=== PATIENT | female | born 1960 | race Caucasian/White ===

== ENCOUNTER 2017-03-29 12:20 | Inpatient (IN) | payer BC, MEDICARE ==
[2017-03-29] MEDS ORDERED: Ondansetron INJ* 2 MG/ML VIAL IV ONE (13:20)
[2017-03-29] MEDS ORDERED: NS 0.9% 1000 ML* 1,000 ML IV ONE (13:20)
[2017-03-29 13:32] LABS: Hematocrit 27 % (35-47); Hemoglobin 9.1 g/dl (12.0-16.0); Mean Corpuscular HGB Conc 33 g/dl (31-36); Mean Corpuscular Hemoglobin 30 pg (27-31); Mean Corpuscular Volume 89 fL (80-97); Mean Platelet Volume 8 um3 (7.4-10.4); Red Blood Count 3.08 10^6/ul (4.0-5.4); Red Cell Distribution Width 17 % (10.5-15); White Blood Count 9.7 10^3/ul (3.5-10.8)
[2017-03-29 13:34] LABS: Add Diff/Slide Review? Manual Diff Added; Comments Flag Yes
[2017-03-29 13:54] LABS: Eosinophils % 1 % (0-6); Neutrophil % 89 % (38-83)
[2017-03-29 13:55] LABS: Add Path Review? YES; Albumin 2.8 g/dL (3.2-5.2); BUN/Creatinine Ratio 13.4 (8-20); C Reactive Protein 84.26 mg/L (< 5.00); Calcium 9.4 mg/dL (8.6-10.3); EGFR African American 43.7 (>60); Globulin 4.1 g/dL (2-4); Macrocytosis 1+; Magnesium 1.3 mg/dL (1.9-2.7); Total Bilirubin 0.4 mg/dL (0.2-1.0); Total Protein 6.9 g/dL (6.4-8.9); Troponin I 0.03 ng/mL (<0.04)
--- NOTE | 2017-03-29 14:06 | RAD ---
Indication: Shortness of breath, tachycardia. Question pneumonia and CHF. Comparison: No relevant prior exams available on the [facility] for comparison. Technique: Upright AP 1345 hours Report: Bilateral nipple shadows noted. Clear lungs and pleural spaces. Negative for pneumothorax. Rarefaction of interstitial markings favoring emphysema. Negative for cardiomegaly. RIGHT atrial and RIGHT ventricular level pacemaker leads. Unremarkable central pulmonary vasculature. Tip of RIGHT upper chimney PICC at level of superior vena cava directed central. Negative for free air beneath the diaphragm. Gallbladder fossa level surgical clips. IMPRESSION: 1. No evidence for pneumonia or pulmonary edema. 2. Probable emphysema.
[2017-03-29 14:55] LABS: Urine Bacteria Absent (Absent); Urine Bilirubin Negative (Negative); Urine Glucose Negative (Negative); Urine Nitrite Negative (Negative)
[2017-03-29] MEDS ORDERED: Magnesium Sulfate 2 GM IV* 2 GM/50 ML BAG IVPB ONE (15:04)
[2017-03-29] MEDS ORDERED: Metoprolol Tartrate IV* 1 MG/ML 5 ML VIAL IV ONE (15:04)
[2017-03-29] MEDS ORDERED: NS 0.9% 1000 ML* 2,000 ML IV ONE (15:17)
[2017-03-29] MEDS ORDERED: Meclizine TAB* 12.5 MG PO PRN (17:45)
[2017-03-29] MEDS ORDERED: Dextrose 50% Syringe 50 ML* 25 GM/50 ML SYRINGE IV PUSH PRN (17:59)
--- NOTE | 2017-03-29 18:45 | ED ---
Michelle Dykes Seung-Jae, scribed for Per Matthew MD on 03/29/17 at 1544 . Complex/Multi-Sys Presentation - HPI Summary HPI Summary: Pt is a 57 y/o F presenting to the ED with c/o irregular rhythm and heart palpitations. Onset was since Tuesday 03/27. She describes a lowering of BP recently. Associated symptoms included lightheadedness, N/V, SOB, dizziness when standing, tachycardia, dehydration, fever and diaphoresis. Pt denies CP, chills. Pt has PMHx of A fib, CHF, and irregular heartbeat. She has a pacemaker placed, has had a colon surgery with Dr. Bello Ross on 03/01/17. She currently has a BLANCHE drain in place. - History Of Current Complaint Chief Complaint: EDDysrhythmPalp Time Seen by Provider: 03/29/17 12:35 Hx Obtained From: Patient Onset/Duration: Sudden Onset Associated Signs And Symptoms: Positive: Dizziness, SOB, Nausea, Vomiting, Fever , Diaphoresis, Other - Decrease in BP, tachycardia, lightheadedness. Negative: Chest Pain - Allergies/Home Medications Allergies/Adverse Reactions: Allergies Allergy/AdvReac Type Severity Reaction Status Date / Time Azithromycin [From Zithromax] Allergy Hives Verified 03/29/17 12:39 Peanut Oil Allergy Hives/Diff. Verified 03/29/17 12:39 Breathing/I tching Home Medications: Home Medications Aspirin EC Low Dose* [Ecotrin EC Low Dose 81 MG*] 81 mg PO QAM 03/29/17 [ History Confirmed 03/29/17] Atorvastatin* [Lipitor*] 40 mg PO BEDTIME 03/29/17 [History Confirmed 03/29/17] Btdaebb-Tjvxqvi-Ocojme Salicyl [Bengay Ultra Strength 4-10-30 %] 1 cre TOPICAL DAILY 03/29/17 [History Confirmed 03/29/17] Cholecalciferol TAB* [Vitamin D TAB*] 1,000 unit PO DAILY 03/29/17 [History Confirmed 03/29/17] Digoxin TAB* [Lanoxin TAB*] 0.25 mg PO QAM 03/29/17 [History Confirmed 03/29/17] Docusate CAP* [Colace Cap*] 100 mg PO QAM PRN 03/29/17 [History Confirmed ] Enoxaparin(*) [Lovenox(*)] 40 mg SUBCUT DAILY 03/29/17 [History Confirmed ] Fenofibrate(NF) [Tricor(NF)] 160 mg PO QAM 03/29/17 [History Confirmed 03/29/17] Ferrous Sulfate TAB* 325 mg PO BID 03/29/17 [History Confirmed 03/29/17] Furosemide TAB* [Lasix TAB*] 20 mg PO BID 03/29/17 [History Confirmed 03/29/17] Gabapentin CAP(*) [Neurontin 300 CAP(*)] 300 mg PO TID 03/29/17 [History Confirmed 03/29/17] Lisinopril TAB* [Prinivil TAB*] 20 mg PO QAM 03/29/17 [History Confirmed ] LoraTADine TAB(NF) [Claritin 10 MG TAB(NF)] 10 mg PO DAILY 03/29/17 [History Confirmed 03/29/17] Magnesium Oxide [Magnesium] 2,000 mg PO DAILY 03/29/17 [History Confirmed ] Meclizine TAB* [Antivert 12.5 TAB*] 25 mg PO TID PRN 03/29/17 [History Confirmed 03/29/17] Metoprolol Tartrate TAB* [Lopressor TAB*] 50 mg PO QID 03/29/17 [History Confirmed 03/29/17] Nystatin SUSPENSION* [Nystatin*] 5 ml PO QID 03/29/17 [History Confirmed ] [place]-3 Fatty Acids (Nf) [Fish Oil (NF)] 1,000 mg PO DAILY 03/29/17 [History Confirmed 03/29/17] Ondansetron ODT TAB* [Zofran 4 MG Odt TAB*] 4 mg PO Q4HR PRN 03/29/17 [History Confirmed 03/29/17] Pantoprazole TAB (NF) [Protonix TAB (NF)] 40 mg PO DAILY 03/29/17 [History Confirmed 03/29/17] Potassium Chlor TAB* [Klor Con ER TAB*] 20 meq PO DAILY 03/29/17 [History Confirmed 03/29/17] Spironolactone TAB* [Aldactone TAB*] 25 mg PO DAILY 03/29/17 [History Confirmed 03/29/17] glipiZIDE TAB* [Glucotrol TAB*] 10 mg PO BID 03/29/17 [History Confirmed ] metFORMIN* [Glucophage 1000 MG TAB *] 1,000 mg PO BID 03/29/17 [History Confirmed 03/29/17] oxyCODONE/Acetamin 5/325 MG* [Percocet 5/325 TAB*] 1 tab PO Q6H PRN 03/29/17 [ History Confirmed 03/29/17] PMH/Surg Hx/FS Hx/Imm Hx Cardiovascular History: Reports: Hx Atrial Fibrillation, Hx Congestive Heart Failure, Other Cardiovascular Problems/Disorders - Irregular heartbeat, has pacemaker GI History: Reports: Hx Obstructive Bowel - multiple - Surgical History Surgery Procedure, Year, and Place: Colon Surgery with Dr. Bello Ross Infectious Disease History: No Infectious Disease History: Denies: Traveled Outside the [place] in Last 30 Days - Family History Known Family History: Positive: Hypertension - in mother - Social History Hx Tobacco Use: Yes Smoking Status (MU): Former Smoker - last smoking 6 years ago. Review of Systems Positive: Fever, Skin Diaphoresis, Other - dehydration Positive: Palpitations, Other - irregular rhythm, decrease in BP, tachycardia Positive: Shortness Of Breath Positive: Vomiting, Nausea Neurological: Other - positive lightheadedness, dizziness All Other Systems Reviewed And Are Negative: Yes Physical Exam - Summary Physical Exam Summary: Pt is dehydrated. NAD. The skin is warm and dry and skin color reflects adequate perfusion. HEENT: The head is normocephalic and atraumatic. The pupils are equal and reactive. The conjunctivae are clear and without drainage. Nares are patent and without drainage. Mouth reveals moist mucous membranes and the throat is without erythema and exudate. Neck is supple with full range of motion and non-tender. There are no carotid bruits. There is no neck vein distension. Respiratory: Chest is non-tender. Lungs are clear to auscultation and breath sounds are symmetrical and equal. Cardiovascular: Hear is regular rate and rhythm. There is no murmur or rub auscultated. There is no peripheral edema and pulses are symmetrical and equal. Pulses are lower. Abdomen: The abdomen is soft and non-tender. There are normal bowel sounds heard in all four quadrants and there is no organomegaly palpated. Musculoskeletal: There is no back pain noted. Extremities are non-tender with full range of motion. There is good capillary refill. There is no peripheral edema or calf tenderness elicited. Neurological: Patient is alert and oriented to person, place and time. The patient has symmetrical motor strength in all four extremities. Cranial nerves are grossly intact. Deep tendon reflexes are symmetrical and equal in all four extremities. Psychiatric: The patient has an appropriate affect and does not exhibit any anxiety or depression. Vital Signs On Initial Exam: Initial Vitals Temp Pulse Resp BP Pulse Ox 97.2 F 140 16 96/71 97 03/29/17 12:23 03/29/17 12:23 03/29/17 12:23 03/29/17 12:23 03/29/17 12:23 Diagnostics - Vital Signs Vital Signs Temp Pulse Resp BP Pulse Ox 03/29/17 12:40 142 15 96 03/29/17 12:39 141 12 96 03/29/17 12:26 97.2 F 140 16 96/71 97 03/29/17 12:23 97.2 F 140 16 96/71 97 - Laboratory Lab Results: Lab Results 03/29/17 03/29/17 03/29/17 Range/Units 13:22 13:22 13:22 WBC 9.7 (3.5-10.8) 10^3/ul RBC 3.08 L (4.0-5.4) 10^6/ul Hgb 9.1 L (12.0-16.0) g/dl Hct 27 L (35-47) % MCV 89 (80-97) fL MCH 30 (27-31) pg MCHC 33 (31-36) g/dl RDW 17 H (10.5-15) % Plt Count 421 (150-450) 10^3/ul MPV 8 (7.4-10.4) um3 Absolute Neuts (auto) 8.7 H (1.5-7.7) 10^3/ul Absolute Lymphs (auto) 0.5 L (1.0-4.8) 10^3/ul Absolute Monos (auto) 0.5 (0-0.8) 10^3/ul Absolute Eos (auto) 0 (0-0.6) 10^3/ul Absolute Basos (auto) 0 (0-0.2) 10^3/ul Absolute Nucleated RBC 0 10^3/ul Neutrophils % 89 H (38-83) % Lymphocytes % 7 L (25-47) % Monocytes % 3 (0-13) % Eosinophils % 1 (0-6) % Normal RBC Morphology Not Reportable Macrocytosis 1+ Hem Pathologist Commnt Sodium 123 L (133-145) mmol/L Potassium 5.0 (3.5-5.0) mmol/L Chloride 92 L (101-111) mmol/L Carbon Dioxide 24 (22-32) mmol/L Anion Gap 7 (2-11) mmol/L BUN 21 (6-24) mg/dL Creatinine 1.57 H (0.51-0.95) mg/dL Est GFR ( Amer) 43.7 (>60) Est GFR (Non-Af Amer) 34.0 (>60) BUN/Creatinine Ratio 13.4 (8-20) Glucose 199 H (70-100) mg/dL Lactic Acid 2.4 H* (0.5-2.0) mmol/L Calcium 9.4 (8.6-10.3) mg/dL Magnesium 1.3 L (1.9-2.7) mg/dL Total Bilirubin 0.40 (0.2-1.0) mg/dL AST 20 (13-39) U/L ALT 10 (7-52) U/L Alkaline Phosphatase 127 H (34-104) U/L Total Creatine Kinase 10 (10-223) U/L Troponin I 0.03 (<0.04) ng/mL C-Reactive Protein 84.26 H (< 5.00) mg/L Total Protein 6.9 (6.4-8.9) g/dL Albumin 2.8 L (3.2-5.2) g/dL Globulin 4.1 H (2-4) g/dL Albumin/Globulin Ratio 0.7 L (1-3) Lipase 22 (11.0-82.0) U/L Urine Color Urine Appearance Urine pH (5-9) Ur Specific [place] (1.010-1.030) Urine Protein (Negative) Urine Ketones (Negative) Urine Blood (Negative) Urine Nitrate (Negative) Urine Bilirubin (Negative) Urine Urobilinogen (Negative) Ur Leukocyte Esterase (Negative) Urine WBC (Auto) (Absent) Urine RBC (Auto) (Absent) Ur Squamous Epith Cells (Absent) Ur Transition Epith Cell (Absent) Urine Bacteria (Absent) Urine Glucose (Negative) 03/29/17 Range/Units 14:18 WBC (3.5-10.8) 10^3/ul RBC (4.0-5.4) 10^6/ul Hgb (12.0-16.0) g/dl Hct (35-47) % MCV (80-97) fL MCH (27-31) pg MCHC (31-36) g/dl RDW (10.5-15) % Plt Count (150-450) 10^3/ul MPV (7.4-10.4) um3 Absolute Neuts (auto) (1.5-7.7) 10^3/ul Absolute Lymphs (auto) (1.0-4.8) 10^3/ul Absolute Monos (auto) (0-0.8) 10^3/ul Absolute Eos (auto) (0-0.6) 10^3/ul Absolute Basos (auto) (0-0.2) 10^3/ul Absolute Nucleated RBC 10^3/ul Neutrophils % (38-83) % Lymphocytes % (25-47) % Monocytes % (0-13) % Eosinophils % (0-6) % Normal RBC Morphology Macrocytosis Hem Pathologist Commnt Sodium (133-145) mmol/L Potassium (3.5-5.0) mmol/L Chloride (101-111) mmol/L Carbon Dioxide (22-32) mmol/L Anion Gap (2-11) mmol/L BUN (6-24) mg/dL Creatinine (0.51-0.95) mg/dL Est GFR ( Amer) (>60) Est GFR (Non-Af Amer) (>60) BUN/Creatinine Ratio (8-20) Glucose (70-100) mg/dL Lactic Acid (0.5-2.0) mmol/L Calcium (8.6-10.3) mg/dL Magnesium (1.9-2.7) mg/dL Total Bilirubin (0.2-1.0) mg/dL AST (13-39) U/L ALT (7-52) U/L Alkaline Phosphatase (34-104) U/L Total Creatine Kinase (10-223) U/L Troponin I (<0.04) ng/mL C-Reactive Protein (< 5.00) mg/L Total Protein (6.4-8.9) g/dL Albumin (3.2-5.2) g/dL Globulin (2-4) g/dL Albumin/Globulin Ratio (1-3) Lipase (11.0-82.0) U/L Urine Color Yellow Urine Appearance Cloudy Urine pH 5.0 (5-9) Ur Specific [place] 1.030 (1.010-1.030) Urine Protein Negative (Negative) Urine Ketones Trace H (Negative) Urine Blood Negative (Negative) Urine Nitrate Negative (Negative) Urine Bilirubin Negative (Negative) Urine Urobilinogen Negative (Negative) Ur Leukocyte Esterase 2+ H (Negative) Urine WBC (Auto) 2+(11-20/hpf) H (Absent) Urine RBC (Auto) Trace(0-2/hpf) (Absent) Ur Squamous Epith Cells Present H (Absent) Ur Transition Epith Cell Present H (Absent) Urine Bacteria Absent (Absent) Urine Glucose Negative (Negative) Result Diagrams: 03/29/17 13:22 03/29/17 13:22 Lab Statement: Any lab studies that have been ordered have been reviewed, and results considered in the medical decision making process. - Radiology Chest XR Xray Interpretation: Positive (See Comments) - Impression: no evidence for PNA or pulmonary edema. Probable emphysema. Radiology Interpretation Completed By: Radiologist - EKG 12:30 Cardiac Rate: Tachycardia - 139 bpm EKG Rhythm: Sinus Tachycardia EKG Interpretation: ST depression at Lead1 I V2 - V6 Re-Evaluation - Re-Evaluation First Eval Re-Evaluation Time: 17:04 Change: Unchanged Comment: Labwork reviewed. Complex Multi-Symp Course/Dx - Diagnoses Differential Diagnoses/HQI/PQRI: Metabolic Abnormality, Sepsis, Urinary Tract Infection, Other - recent colon resection, infectious diarrhea, pneumonia, atrial fibrillation, Provider Diagnoses: Dehydration, Hypomagnesemia - Physician Notifications Discussed Care Of Patient With: Jluis Reis Time Discussed With Above Provider: 17:00 - Critical Care Time Critical Care Time: 30-74 min - 30 minutes Discharge - Discharge Plan Condition: Stable Disposition: ADMITTED TO [facility] Referrals: Non Staff,Doctor [Primary Care Provider] - The documentation as recorded by the scribe, Martinez,Florin-Eduardo accurately reflects the service I personally performed and the decisions made by me, Per Matthew MD.
[2017-03-29] MEDS: NS 0.9% 1000 ML* 1,000 ML IV SCH (19:45)
[2017-03-29] MEDS: Metoprolol Tartrate TAB* 50 mg PO SCH (20:16)
[2017-03-29] MEDS: Atorvastatin* 40 MG TAB PO SCH (20:16)
[2017-03-29] MEDS: oxyCODONE/Acetamin 5/325 MG* TAB PO PRN (20:16)
[2017-03-29] MEDS: Nystatin SUSPENSION* 100000 UNITS/ML 5 ML UDC PO SCH (20:17)
[2017-03-29] MEDS: Insulin LISPRO* 1 UNITS UNIT SUBCUT SCH (20:40)
[2017-03-30] MEDS: oxyCODONE/Acetamin 5/325 MG* TAB PO PRN ×3 (02:25→17:10)
[2017-03-30] MEDS: NS 0.9% 1000 ML* 1,000 ML IV SCH ×2 (04:05→13:05)
[2017-03-30 06:24] LABS: Hematocrit 23 % (35-47); Hemoglobin 7.4 g/dl (12.0-16.0); Mean Corpuscular HGB Conc 32 g/dl (31-36); Mean Corpuscular Hemoglobin 29 pg (27-31); Mean Corpuscular Volume 90 fL (80-97); Mean Platelet Volume 7 um3 (7.4-10.4); Red Blood Count 2.56 10^6/ul (4.0-5.4); Red Cell Distribution Width 17 % (10.5-15); White Blood Count 5.7 10^3/ul (3.5-10.8)
[2017-03-30 06:27] LABS: Add Diff/Slide Review? Manual Diff Added; Comments Flag Yes
[2017-03-30 06:42] LABS: BUN/Creatinine Ratio 13.5 (8-20); Calcium 8.1 mg/dL (8.6-10.3); EGFR African American 70.2 (>60); EGFR Non-African American 54.6 (>60); Magnesium 1.7 mg/dL (1.9-2.7); Potassium 4.8 mmol/L (3.5-5.0)
[2017-03-30 07:06] LABS: Hypochromasia 2+; Neutrophil % 88 % (38-83)
[2017-03-30 07:07] LABS: Add Path Review? YES
[2017-03-30] MEDS: Insulin LISPRO* 1 UNITS UNIT SUBCUT SCH ×4 (07:41→20:57)
[2017-03-30] MEDS: Spironolactone TAB* 25 MG PO SCH (08:29)
[2017-03-30] MEDS: Omeprazole CAP* 20 MG PO SCH (08:29)
[2017-03-30] MEDS: Magnesium Oxide TAB* 400 MG PO SCH (08:29)
[2017-03-30] MEDS: Potassium Chlor TAB* 20 MEQ TAB.ER PO SCH (08:30)
[2017-03-30] MEDS: Cetirizine* 10 MG TAB PO SCH (08:30)
[2017-03-30] MEDS: Cholecalciferol TAB* 1000 UNITS PO SCH (08:30)
[2017-03-30] MEDS: Digoxin TAB* 0.25 MG PO SCH (08:30)
[2017-03-30] MEDS: Lisinopril TAB* 10 MG PO SCH (08:30)
[2017-03-30] MEDS: Metoprolol Tartrate TAB* 50 mg PO SCH ×4 (08:31→21:03)
[2017-03-30] MEDS: Nystatin SUSPENSION* 100000 UNITS/ML 5 ML UDC PO SCH ×4 (08:31→21:02)
[2017-03-30] MEDS: Aspirin EC Low Dose* 81 MG TAB.EC PO SCH (08:31)
[2017-03-30] MEDS: Enoxaparin(*) 40 MG/0.4 ML SYR SUBCUT SCH (08:31)
[2017-03-30] MEDS: Ondansetron INJ* 2 MG/ML VIAL IV PRN ×2 (08:47→17:13)
[2017-03-30] MEDS: METHYL SALICYLATE TOPICAL SCH (10:15)
[2017-03-30] MEDS: CAMPHOR TOPICAL SCH (10:15)
[2017-03-30] MEDS: CMC:Fenofibrate(NF) 160 MG TAB PO SCH (10:15)
[2017-03-30] MEDS: MENTHOL TOPICAL SCH (10:15)
[2017-03-30] MEDS: [UNRECOGNIZED DRUG - OTHER] TOPICAL SCH (10:15)
[2017-03-30] MEDS ORDERED: Ondansetron INJ* 2 MG/ML VIAL IV ONE (11:59)
--- NOTE | 2017-03-30 18:29 | PN ---
Subjective Date of Service: 03/30/17 Interval History: Interviewed and examined patient at bedside; Discussed case with Dr. Reis; Reviewed previous notes and radiology results; Patient with diarrhea, dehydration, vomiting. ARF at admission; IVF ongoing. patient states she is tired with poor appetite. no pain. discussed labs improved from yesterday x worse anemia (dilutional + true anemia ) => 2 units prbc ordered (pt agreed). discussed will get records from tissue packer and request surgical consult. Family History: Unchanged from Admission Social History: Unchanged from Admission Past Medical History: Unchanged from Admission Objective Active Medications: . Acetaminophen (Tylenol Tab*) 650 mg PO Q4H PRN PRN Reason: FEVER/PAIN Aspirin (Aspirin Ec Low Dose*) 81 mg PO QAM [facility] Last Admin: 03/30/17 08:31 Dose: 81 mg Atorvastatin Calcium (Lipitor*) 40 mg PO BEDTIME [facility] Last Admin: 03/29/17 20:16 Dose: 40 mg Cetirizine HCl (Zyrtec*) 10 mg PO DAILY [facility] Last Admin: 03/30/17 08:30 Dose: 10 mg Cholecalciferol (Vitamin D Tab*) 1,000 units PO DAILY [facility] Last Admin: 03/30/17 08:30 Dose: 1,000 units Dextrose (D50w Syringe 50 Ml*) 12.5 gm IV PUSH .FOR FS < 60 - SS PRN PRN Reason: FS < 60 Digoxin (Lanoxin Tab*) 0.25 mg PO QAM [facility] Last Admin: 03/30/17 08:30 Dose: 0.25 mg Enoxaparin Sodium (Lovenox(*)) 40 mg SUBCUT DAILY [facility] Last Admin: 03/30/17 08:31 Dose: 40 mg Fenofibrate (Tricor(Nf)) 160 mg PO QAM [facility] PRN Reason: Protocol Last Admin: 03/30/17 10:15 Dose: Not Given Heparin Sodium (Porcine) (Heparin Flush Picc/Ml/Cvc(*)) 1 ml FLUSH 0600,1800 [facility] PRN Reason: Protocol Last Admin: 03/30/17 18:10 Dose: 2 ml Sodium Chloride (Ns 0.9% 1000 Ml*) 1,000 mls @ 125 mls/hr IV PER RATE [facility] Last Admin: 03/30/17 13:05 Dose: 125 mls/hr Penicillin G Potassium 5,000, (000 units/ Sodium Chloride) 100 mls @ 200 mls/ hr IVPB Q6H [facility] Last Admin: 03/30/17 13:05 Dose: 200 mls/hr Insulin Human Lispro (Humalog*) 0 units SUBCUT ACHS [facility] PRN Reason: Protocol Last Admin: 03/30/17 18:04 Dose: 1 units Lisinopril (Prinivil Tab*) 20 mg PO QAM [facility] Last Admin: 03/30/17 08:30 Dose: 20 mg Magnesium Oxide (Magox 400 Tab*) 2,000 mg PO DAILY [facility] Last Admin: 03/30/17 08:29 Dose: 2,000 mg Meclizine HCl (Antivert Tab*) 25 mg PO TID PRN PRN Reason: VERTIGO Metoprolol Tartrate (Lopressor Tab*) 50 mg PO QID [facility] Last Admin: 03/30/17 17:10 Dose: 50 mg Non-Formulary Medication (Unjbllo-Rlmvcji-Zhkcfr Salicyl [Bengay Ultra Strength 4-10-30 %]) 1 cre TOPICAL DAILY [facility] Last Admin: 03/30/17 10:15 Dose: Not Given Nystatin (Nystatin Suspension*) 500,000 units PO QID [facility] Last Admin: 03/30/17 17:10 Dose: 500,000 units Omeprazole (Prilosec Cap*) 20 mg PO DAILY [facility] Last Admin: 03/30/17 08:29 Dose: 20 mg Ondansetron HCl (Zofran Odt Tab*) 4 mg PO Q4HR PRN PRN Reason: NAUSEA Ondansetron HCl (Zofran Inj*) 4 mg IV Q4H PRN PRN Reason: NAUSEA Last Admin: 03/30/17 17:13 Dose: 4 mg Oxycodone/Acetaminophen (Percocet 5/325 Tab*) 1 tab PO Q6H PRN PRN Reason: PAIN Last Admin: 03/30/17 17:10 Dose: 1 tab Potassium Chloride (Klor Con Er Tab*) 20 meq PO DAILY [facility] Last Admin: 03/30/17 08:30 Dose: 20 meq Spironolactone (Aldactone Tab*) 25 mg PO DAILY [facility] Last Admin: 03/30/17 08:29 Dose: 25 mg . Vital Signs 03/29/17 03/29/17 03/29/17 18:30 19:22 20:16 Temperature 97.9 F Pulse Rate 126 96 Respiratory 17 16 16 Rate Blood Pressure 132/73 115/70 (mmHg) O2 Sat by Pulse 96 99 Oximetry 03/29/17 03/29/17 03/29/17 20:23 22:16 23:42 Temperature 97.8 F Pulse Rate 102 Respiratory 16 16 16 Rate Blood Pressure 113/51 (mmHg) O2 Sat by Pulse 96 Oximetry Oxygen Devices in Use Now: Nasal Cannula Appearance: ill appearing, pale Eyes: No Scleral Icterus Ears/Nose/Mouth/Throat: Clear Oropharnyx Neck: Trachea Midline Respiratory: Symmetrical Chest Expansion and Respiratory Effort Cardiovascular: - - large anterior abdominal wound- dressed. +2 BLACNHE drains Abdominal: NL Sounds; No Tenderness; No Distention Lymphatic: No Cervical Adenopathy Extremities: No Edema Skin: No Rash or Ulcers Neurological: Alert and Oriented x 3 Lines/Tubes/Other Access: Clean, Dry and Intact Peripheral IV, Clean, Dry and Intact Central Line Nutrition: Taking PO's - poor appetite; limited intake. Result Diagrams: 03/30/17 06:10 03/30/17 06:10 Microbiology and Other Data: Microbiology 03/29/17 18:10 Nasal Screen MRSA (PCR)(RADHA) - Final Nasal Mrsa Negative Assess/Plan/Problems-Billing . Assessment: 57 yo female with recent colon resection for colon cancer with two BLANCHE drains in situ and anterior abdominal wall wound. + severe anemia + dehydration and hyponatremia and hypovolemia with acute renal failure - Patient Problems (1) Nausea and vomiting Current Visit: Yes Status: Acute Priority: High Code(s): R11.2 - NAUSEA WITH VOMITING, UNSPECIFIED Comment: - clears - Zofran, prn (2) Hypovolemia associated with vomiting Current Visit: Yes Status: Acute Priority: High Code(s): E86.1 - HYPOVOLEMIA Comment: - volume replacement (3) Severe anemia Current Visit: Yes Status: Acute Priority: High Code(s): D64.9 - ANEMIA, UNSPECIFIED Comment: - 2 unit prbc tranfusion - check AM CBC (4) Colon cancer Current Visit: Yes Status: Acute (5) Open abdominal wall wound Current Visit: Yes Status: Acute Priority: High Code(s): S31.109A - UNSP OPN WND ABD WALL, UNSP Q W/O PENET PERIT CAV, INIT Comment: - surgical consult - wound vac ordered (6) Acute renal failure (ARF) Current Visit: Yes Status: Acute Priority: High Comment: - follow creatinine
[2017-03-30] MEDS ORDERED: Magnesium Sulf 4 GM/100 ML IV* 4,000 MG/100 ML BAG IVPB ONE (18:32)
[2017-03-30] MEDS ORDERED: Zosyn per Pharmacy* NOTE FOLLOW UP SCH (19:00)
[2017-03-30] MEDS: Atorvastatin* 40 MG TAB PO SCH (21:03)
[2017-03-31] MEDS: oxyCODONE/Acetamin 5/325 MG* TAB PO PRN ×4 (01:02→19:40)
[2017-03-31] MEDS: ZOSYN 3.375 GM Q8H per EXTENDED INFUSION IVPB SCH ×6 (01:56→16:46)
[2017-03-31] MEDS: Insulin LISPRO* 1 UNITS UNIT SUBCUT SCH ×4 (07:16→21:00)
[2017-03-31] MEDS: NS 0.9% 1000 ML* 1,000 ML IV SCH ×2 (08:12→16:46)
[2017-03-31 09:07] LABS: Hematocrit 35 % (35-47); Hemoglobin 11.5 g/dl (12.0-16.0); Mean Corpuscular HGB Conc 33 g/dl (31-36); Mean Corpuscular Hemoglobin 29 pg (27-31); Mean Corpuscular Volume 90 fL (80-97); Mean Platelet Volume 8 um3 (7.4-10.4); Red Blood Count 3.95 10^6/ul (4.0-5.4); Red Cell Distribution Width 16 % (10.5-15)
[2017-03-31 09:16] LABS: Albumin 2.4 g/dL (3.2-5.2); BUN/Creatinine Ratio 7.4 (8-20); Calcium 8.6 mg/dL (8.6-10.3); EGFR African American 93.7 (>60); EGFR Non-African American 72.9 (>60); Globulin 3.5 g/dL (2-4); Magnesium 2.4 mg/dL (1.9-2.7); Phosphorus 1.9 mg/dL (2.5-5.0); Potassium 5.2 mmol/L (3.5-5.0); Total Bilirubin 0.5 mg/dL (0.2-1.0); Total Protein 5.9 g/dL (6.4-8.9)
[2017-03-31] MEDS: MENTHOL TOPICAL SCH (09:19)
[2017-03-31] MEDS: [UNRECOGNIZED DRUG - OTHER] TOPICAL SCH (09:19)
[2017-03-31] MEDS: CAMPHOR TOPICAL SCH (09:19)
[2017-03-31] MEDS: METHYL SALICYLATE TOPICAL SCH (09:19)
[2017-03-31] MEDS: Digoxin TAB* 0.25 MG PO SCH (09:25)
[2017-03-31] MEDS: Magnesium Oxide TAB* 400 MG PO SCH (09:25)
[2017-03-31] MEDS: Cholecalciferol TAB* 1000 UNITS PO SCH (09:26)
[2017-03-31] MEDS: Nystatin SUSPENSION* 100000 UNITS/ML 5 ML UDC PO SCH ×4 (09:26→20:59)
[2017-03-31] MEDS: Metoprolol Tartrate TAB* 50 mg PO SCH ×4 (09:26→20:58)
[2017-03-31] MEDS: Aspirin EC Low Dose* 81 MG TAB.EC PO SCH (09:26)
[2017-03-31] MEDS: Spironolactone TAB* 25 MG PO SCH (09:26)
[2017-03-31] MEDS: Potassium Chlor TAB* 20 MEQ TAB.ER PO SCH (09:26)
[2017-03-31] MEDS: Enoxaparin(*) 40 MG/0.4 ML SYR SUBCUT SCH (09:26)
[2017-03-31] MEDS: Lisinopril TAB* 10 MG PO SCH (09:26)
[2017-03-31] MEDS: CMC:Fenofibrate(NF) 160 MG TAB PO SCH (09:26)
[2017-03-31] MEDS: Omeprazole CAP* 20 MG PO SCH (09:26)
[2017-03-31] MEDS: Cetirizine* 10 MG TAB PO SCH (09:26)
[2017-03-31] MEDS: Acetaminophen TAB* 325 MG PO PRN (17:04)
[2017-03-31] MEDS: Atorvastatin* 40 MG TAB PO SCH (20:58)
[2017-04-01] MEDS: NS 0.9% 1000 ML* 1,000 ML IV SCH ×3 (00:48→17:03)
--- NOTE | 2017-04-01 00:54 | CONS ---
CC: [facility]; Dr. Nishant Landeros, [place]; Dr. Dagoberto Scott * SURGICAL CONSULTATION REPORT: DATE OF CONSULT: The patient was seen at [facility] on 03/31/17. HISTORY OF PRESENT ILLNESS: Ms. Evangelista is a 57-year-old female who is 1 month status post transverse and descending colectomy for colon cancer. This was done through a laparotomy. She had had previous right hemicolectomy for polyp disease or possibly for cancer. Patient is not sure. Patient underwent an anastomosis of the distal ileum to the sigmoid colon in an end-to-end fashion with closure of the mesenteric defect. Patient went back to the OR on postoperative day #4 for concern of abdominal distention and possibility of obstruction. She had signs of sepsis at the time according to the report and underwent exploratory laparotomy and removal of a single suture on portion of the small bowel. Her abdominal wall was close to fascia layer, but the skin was left open and a vacuum dressing applied. Fascia was closed with Maxon suture. This procedure occurred on 03/08/17. 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 It seems the patient went back to the radiology suite on 2 occasions for placement of the intra-abdominal and likely pelvic drains for abscesses. The patient underwent placement of the 2 drains, one entering at the right lower quadrant and one at the right VAC. She was discharged from the hospital on 03/23/17 and this report is available to me. She has been receiving IV penicillin and ceftriaxone via PICC line. She had been prior previously on TPN and spent a fair amount of time in the ICU. She had been tolerating a soft diet and pain was controlled with oral medications. The patient was transferred to a half-way in our area and was evaluated for tachycardia and hypotension and noted to have a heart rate of 140 with blood pressure 96/71. Her workup in the emergency room included labs and an EKG and was admitted to the hospitalist service for metabolic derangements. She was noted to have a creatinine of 1.57 and sodium of 129. Hospitalist service contacted the surgical service to assist in the patient's open abdomen and her active drain. The patient is not complaining of abdominal pain and does feel better since arriving at the hospital. She states that she was getting weaker at the half-way, but is now finally feeling stronger. She is tolerating oral diet. She is having small bowel movements as well as flatus. I believe she is having her abdominal drains flushed with saline according to the half-way report. I am not sure if we are continuing that here at the hospital. The patient is somewhat tearful at the thought that she might need additional surgery, does not want to go in this direction. I assured her we are just assessing her. REVIEW OF SYSTEMS: The patient denies any fevers or chills. She feels she is getting somewhat stronger. She cannot get out of bed and ambulate. She describes less abdominal pain. She is not sure when she had her vacuum dressing changed last. Denies any dysuria. She is passing flatus. PHYSICAL EXAMINATION: On physical exam, she is afebrile at 98.1, blood pressure 147/71, pulse 92. Alert and oriented x3, in no apparent distress. She does have positive I's and O's for the last 3 days of approximately 7 L. She has had small bowel movements. She has BLANCHE drain outputs that are also listed in the report. She is comfortable lying in hospital bed. Her abdomen is soft, mildly distended. Vacuum dressing in place with good seal, connected to 125 mmHg with scant output in the canister. This dressing was not taken down. The patient has 2 pigtail type catheters placed similar to those placed in our suite that show cloudy foul- smelling drainage. This is minimal in the BLANCHE bulb. No CVA tenderness. Rectal exam was not performed today. Extremities within normal limits. DIAGNOSTIC STUDIES/LAB DATA: Labs reviewed, show improvement of her metabolic derangements, but she still remains hyponatremic. Her blood sugars have been abnormal. Her creatinine has come down to 0.81. CBC shows H and H improved to 11.5/35 from arrival of 06/09. When she got hydrated, she went to 7.4/23 and she has been given 2 units of blood since this hospitalization. IMPRESSION: This 57-year-old female with metachronous colon lesions, now with almost a subtotal colectomy with terminal ileum anastomosed to distal sigmoid colon and complications of abdominal sepsis and infection, treated with drainage and antibiotics. She does remain on antibiotics. At this point, drains will have to stay in as long as they have this active output that is seen. I think the patient would benefit from a CT scan to evaluate if there are any additional undrained collections or if these drained areas are collapsing. I do not believe she is suffering from small bowel obstruction. I did not look at the midline abdominal wound at this hour, but we can look towards changing of the vacuum dressing tomorrow and we can visualize it at that time. She may need long-term wound care of this purpose and can be seen in the wound center. I surgeon and [place] would also like to follow her and follow these drains and look towards their evaluation and need for removal. The patient is hemodynamically stable at this point, but I do believe she is suffering from dehydration either from poor p.o. intake and/or losses due to being comparable to a subtotal colectomy after 2 colectomies. If she remains hemodynamically stable and on antibiotics, we can consider discharge without any additional workup knowing that she will follow up with her surgeons who I believe would want to see to the completion of her care since this has been a complication. She does not show signs of abdominal sepsis at this time, the drains must stay in. The vacuum dressing can get changed 3 times a week and I will certainly be happy to see her as an outpatient at the wound center. I do not think she should go home tonight as it is very late. Tomorrow, we will see with her labs if she is showing some improvement and can tolerate a diet. It may not be unreasonable to look towards the discharge and look towards possibly making sure she stayed hydrated with frequent laboratory studies. [id number]/CPS #: [id number] JABARI
[2017-04-01] MEDS: ZOSYN 3.375 GM Q8H per EXTENDED INFUSION IVPB SCH ×6 (01:16→16:20)
[2017-04-01] MEDS: oxyCODONE/Acetamin 5/325 MG* TAB PO PRN ×4 (02:20→22:31)
[2017-04-01 06:04] LABS: Hematocrit 31 % (35-47); Hemoglobin 10.5 g/dl (12.0-16.0); Mean Corpuscular HGB Conc 33 g/dl (31-36); Mean Corpuscular Hemoglobin 30 pg (27-31); Mean Corpuscular Volume 89 fL (80-97); Mean Platelet Volume 8 um3 (7.4-10.4); Red Blood Count 3.53 10^6/ul (4.0-5.4); Red Cell Distribution Width 16 % (10.5-15); White Blood Count 3.8 10^3/ul (3.5-10.8)
[2017-04-01 06:05] LABS: Add Diff/Slide Review? Slide Review Added; Comments Flag Yes
[2017-04-01 06:15] LABS: BUN/Creatinine Ratio 8.7 (8-20); Calcium 8.3 mg/dL (8.6-10.3); EGFR African American 112.8 (>60); EGFR Non-African American 87.7 (>60); Globulin 3.2 g/dL (2-4); Magnesium 1.6 mg/dL (1.9-2.7); Phosphorus 2.3 mg/dL (2.5-5.0); Potassium 4.8 mmol/L (3.5-5.0); Total Bilirubin 0.4 mg/dL (0.2-1.0); Total Protein 5.2 g/dL (6.4-8.9)
[2017-04-01] MEDS: Insulin LISPRO* 1 UNITS UNIT SUBCUT SCH ×4 (07:23→22:21)
[2017-04-01] MEDS ORDERED: Potassium Phosphate IV* 15 MMOLE in NS 0.9% 250 ML* 250 ML IVPB ONE (07:49)
[2017-04-01] MEDS: METHYL SALICYLATE TOPICAL SCH (09:38)
[2017-04-01] MEDS: MENTHOL TOPICAL SCH (09:38)
[2017-04-01] MEDS: [UNRECOGNIZED DRUG - OTHER] TOPICAL SCH (09:38)
[2017-04-01] MEDS: CAMPHOR TOPICAL SCH (09:38)
[2017-04-01] MEDS: Magnesium Oxide TAB* 400 MG PO SCH (09:46)
[2017-04-01] MEDS: Enoxaparin(*) 40 MG/0.4 ML SYR SUBCUT SCH (09:46)
[2017-04-01] MEDS: Spironolactone TAB* 25 MG PO SCH (09:46)
[2017-04-01] MEDS: Potassium Chlor TAB* 20 MEQ TAB.ER PO SCH (09:46)
[2017-04-01] MEDS: Lisinopril TAB* 10 MG PO SCH (09:46)
[2017-04-01] MEDS: Aspirin EC Low Dose* 81 MG TAB.EC PO SCH (09:46)
[2017-04-01] MEDS: Omeprazole CAP* 20 MG PO SCH (09:46)
[2017-04-01] MEDS: Digoxin TAB* 0.25 MG PO SCH (09:46)
[2017-04-01] MEDS: Cholecalciferol TAB* 1000 UNITS PO SCH (09:46)
[2017-04-01] MEDS: Cetirizine* 10 MG TAB PO SCH (09:46)
[2017-04-01] MEDS: Metoprolol Tartrate TAB* 50 mg PO SCH ×4 (09:46→22:21)
[2017-04-01] MEDS: Nystatin SUSPENSION* 100000 UNITS/ML 5 ML UDC PO SCH ×4 (09:47→22:21)
[2017-04-01] MEDS: CMC:Fenofibrate(NF) 160 MG TAB PO SCH (10:54)
[2017-04-01] MEDS: Acetaminophen TAB* 325 MG PO PRN ×2 (12:35→20:54)
[2017-04-01] MEDS: Ondansetron ODT TAB* 4 MG PO PRN (13:04)
[2017-04-01] MEDS ORDERED: Iodixanol* (CONTRAST) 320 MG/ML 100 ML SDV IV ONE (13:35)
--- NOTE | 2017-04-01 14:50 | RAD ---
INDICATION: Status post abdominal surgery evaluate for infection or obstruction. COMPARISON: There are no prior studies available for comparison. TECHNIQUE: A CT scan of the abdomen and pelvis was performed with intravenous and oral contrast following intravenous injection of 62 ml of Visipaque 320 nonionic contrast. Contiguous axial sections were obtained from the lung bases through the symphysis pubis. Images were reconstructed in the coronal and sagittal planes. FINDINGS: Images through the lung bases demonstrate mild dependent infiltrates most consistent with atelectasis and small bilateral pleural effusions. The liver and spleen appear mildly enlarged without significant focal abnormality. The patient is status post cholecystectomy. There is mild intra and extra hepatic ductal distention. The common bile duct measures up to 1.3 cm in diameter. There is diffuse fatty infiltration of the pancreas. No pancreatic ductal distention is noted. The kidneys and adrenal glands are normal in size. No hydronephrosis is seen. No significant focal renal abnormality is seen. The aorta is normal in caliber with moderate calcific plaque present. No significant enlarged retroperitoneal lymph nodes are seen. The patient appears to be status post removal of the majority of the colon. There appears to be an anastomosis of the distal small bowel with the rectosigmoid colon. There is moderate distention of the mid and distal small bowel and rectosigmoid colon likely secondary to a paralytic ileus less likely a partial obstruction. Contrast is seen as far distally as the rectum. There is mild prominence of the mesenteric vascular throughout the abdomen and pelvis. There are 2 surgical drains present within the pelvis. There is a small amount of free intraperineal fluid present within the abdomen and pelvis. No free intraperitoneal air is seen. No localized fluid collections or abscess is seen. The uterus is anteverted and normal in size. No significant focal osseous abnormality is seen. IMPRESSION: 1. SMALL BILATERAL PLEURAL EFFUSIONS. 2. POSTSURGICAL CHANGES, NO EVIDENCE FOR ABSCESS. 3. MODERATE DISTENTION OF THE MID AND DISTAL SMALL BOWEL MOST CONSISTENT WITH A PARALYTIC ILEUS LESS LIKELY A PARTIAL OBSTRUCTION. RECOMMEND FOLLOW-UP. 3. MILD HEPATOSPLENOMEGALY. 4. STATUS POST CHOLECYSTECTOMY MILD INTRA AND EXTRA HEPATIC DUCTAL DISTENTION LIKELY POSTCHOLECYSTECTOMY CHANGES IF OF THE CLINICAL CONCERN CONSIDER MRCP IMAGING.
--- NOTE | 2017-04-01 16:51 | PN ---
Subjective Date of Service: 03/31/17 Interval History: . still poor appetite. denies new pain. started using wound vac. no fevers noted feels out of energy. told patient I was requesting a surgical consult. Family History: Unchanged from Admission Social History: Unchanged from Admission Past Medical History: Unchanged from Admission Objective Active Medications: . Acetaminophen (Tylenol Tab*) 650 mg PO Q4H PRN PRN Reason: FEVER/PAIN Last Admin: 04/01/17 12:35 Dose: 650 mg Aspirin (Aspirin Ec Low Dose*) 81 mg PO QAM [facility] Last Admin: 04/01/17 09:46 Dose: 81 mg Atorvastatin Calcium (Lipitor*) 40 mg PO BEDTIME [facility] Last Admin: 03/31/17 20:58 Dose: 40 mg Cetirizine HCl (Zyrtec*) 10 mg PO DAILY [facility] Last Admin: 04/01/17 09:46 Dose: 10 mg Cholecalciferol (Vitamin D Tab*) 1,000 units PO DAILY [facility] Last Admin: 04/01/17 09:46 Dose: 1,000 units Dextrose (D50w Syringe 50 Ml*) 12.5 gm IV PUSH .FOR FS < 60 - SS PRN PRN Reason: FS < 60 Digoxin (Lanoxin Tab*) 0.25 mg PO QAM [facility] Last Admin: 04/01/17 09:46 Dose: 0.25 mg Enoxaparin Sodium (Lovenox(*)) 40 mg SUBCUT DAILY [facility] Last Admin: 04/01/17 09:46 Dose: 40 mg Fenofibrate (Tricor(Nf)) 160 mg PO QAM [facility] PRN Reason: Protocol Last Admin: 04/01/17 10:54 Dose: 160 mg Heparin Sodium (Porcine) (Heparin Flush Picc/Ml/Cvc(*)) 1 ml FLUSH 0600,1800 [facility] PRN Reason: Protocol Last Admin: 04/01/17 05:43 Dose: 2 ml Sodium Chloride (Ns 0.9% 1000 Ml*) 1,000 mls @ 125 mls/hr IV PER RATE [facility] Last Admin: 04/01/17 08:32 Dose: 125 mls/hr Piperacillin Sod/Tazobactam (Sod 3.375 gm/ Sodium Chloride) 100 mls @ 25 mls/ hr IVPB Q8H [facility] Last Admin: 07/20/17 16:20 Dose: 25 mls/hr Insulin Human Lispro (Humalog*) 0 units SUBCUT ACHS [facility] PRN Reason: Protocol Last Admin: 04/01/17 16:26 Dose: Not Given Lisinopril (Prinivil Tab*) 20 mg PO QAM [facility] Last Admin: 04/01/17 09:46 Dose: 20 mg Magnesium Oxide (Magox 400 Tab*) 2,000 mg PO DAILY [facility] Last Admin: 04/01/17 09:46 Dose: 2,000 mg Meclizine HCl (Antivert Tab*) 25 mg PO TID PRN PRN Reason: VERTIGO Metoprolol Tartrate (Lopressor Tab*) 50 mg PO QID [facility] Last Admin: 04/01/17 16:21 Dose: 50 mg Non-Formulary Medication (Pvwkpns-Vsenlfz-Rjjuey Salicyl [Bengay Ultra Strength 4-10-30 %]) 1 cre TOPICAL DAILY [facility] Last Admin: 04/01/17 09:38 Dose: Not Given Nystatin (Nystatin Suspension*) 500,000 units PO QID [facility] Last Admin: 04/01/17 16:21 Dose: 500,000 units Omeprazole (Prilosec Cap*) 20 mg PO DAILY [facility] Last Admin: 04/01/17 09:46 Dose: 20 mg Ondansetron HCl (Zofran Odt Tab*) 4 mg PO Q4HR PRN PRN Reason: NAUSEA Last Admin: 04/01/17 13:04 Dose: 4 mg Ondansetron HCl (Zofran Inj*) 4 mg IV Q4H PRN PRN Reason: NAUSEA Last Admin: 03/30/17 17:13 Dose: 4 mg Oxycodone/Acetaminophen (Percocet 5/325 Tab*) 1 tab PO Q6H PRN PRN Reason: PAIN Last Admin: 04/01/17 16:21 Dose: 1 tab Pharmacy Consult (Zosyn Per Pharmacy*) 1 note FOLLOW UP .ZOSYN PER PHARMACY [facility] Potassium Chloride (Klor Con Er Tab*) 20 meq PO DAILY [facility] Last Admin: 04/01/17 09:46 Dose: 20 meq Spironolactone (Aldactone Tab*) 25 mg PO DAILY [facility] Last Admin: 04/01/17 09:46 Dose: 25 mg . Vital Signs 03/31/17 03/31/17 03/31/17 19:26 19:31 19:40 Temperature 98.1 F Pulse Rate 92 Respiratory 16 16 16 Rate Blood Pressure 147/71 (mmHg) O2 Sat by Pulse 98 Oximetry 03/31/17 03/31/17 03/31/17 19:53 20:45 21:40 Temperature Pulse Rate 87 Respiratory 16 16 Rate Blood Pressure 146/76 (mmHg) O2 Sat by Pulse Oximetry Oxygen Devices in Use Now: Nasal Cannula Appearance: elderly, frail, older than stated age, FTT. Eyes: No Scleral Icterus Ears/Nose/Mouth/Throat: Clear Oropharnyx Neck: NL Appearance and Movements; NL JVP Respiratory: Symmetrical Chest Expansion and Respiratory Effort Cardiovascular: NL Sounds; No Murmurs; No JVD Abdominal: - - anterior abd wall wound, dressed / wound vac applied Extremities: No Edema, - - very poor muscle bulk Skin: No Rash or Ulcers Neurological: Alert and Oriented x 3 Lines/Tubes/Other Access: Clean, Dry and Intact Peripheral IV Nutrition: Taking PO's Result Diagrams: 04/01/17 05:32 04/01/17 05:32 Microbiology and Other Data: Microbiology 03/29/17 18:10 Nasal Screen MRSA (PCR)(RADHA) - Final Nasal Mrsa Negative Assess/Plan/Problems-Billing . Assessment: 57 yo female with recent colon resection for colon cancer with two BLANCHE drains in situ and anterior abdominal wall wound. + severe anemia + dehydration and hyponatremia and hypovolemia with acute renal failure - Patient Problems (1) Nausea and vomiting Current Visit: Yes Status: Acute Priority: High Code(s): R11.2 - NAUSEA WITH VOMITING, UNSPECIFIED Comment: - clears --> advance - Zofran, prn (2) Hypovolemia associated with vomiting Current Visit: Yes Status: Acute Priority: High Code(s): E86.1 - HYPOVOLEMIA Comment: - volume replacement (3) Severe anemia Current Visit: Yes Status: Acute Priority: High Code(s): D64.9 - ANEMIA, UNSPECIFIED Comment: - 2 unit prbc tranfusion - AM CBC showed great improvement in H/H (hgb > 11) (4) Colon cancer Current Visit: Yes Status: Acute Comment: - s/p colectomy. (5) Open abdominal wall wound Current Visit: Yes Status: Acute Priority: High Code(s): S31.109A - UNSP OPN WND ABD WALL, UNSP Q W/O PENET PERIT CAV, INIT Comment: - surgical consult requested - wound vac ordered / applied - BLANCHE drains in place with output noted by staff attorney (6) Acute renal failure (ARF) Current Visit: Yes Status: Acute Priority: High Comment: - follow creatinine, down < 1.
[2017-04-01] MEDS: Atorvastatin* 40 MG TAB PO SCH (22:20)
[2017-04-02] MEDS: ZOSYN 3.375 GM Q8H per EXTENDED INFUSION IVPB SCH ×4 (01:30→09:18)
[2017-04-02] MEDS: NS 0.9% 1000 ML* 1,000 ML IV SCH ×2 (01:30→07:51)
[2017-04-02] MEDS: oxyCODONE/Acetamin 5/325 MG* TAB PO PRN ×2 (05:11→11:10)
[2017-04-02] MEDS ORDERED: NS 0.9% 1000 ML* 1,000 ML IV ONE (06:41)
[2017-04-02] MEDS: Insulin LISPRO* 1 UNITS UNIT SUBCUT SCH ×2 (07:51→13:56)
[2017-04-02] MEDS: Digoxin TAB* 0.25 MG PO SCH (09:22)
[2017-04-02] MEDS: Cholecalciferol TAB* 1000 UNITS PO SCH (09:23)
[2017-04-02] MEDS: Aspirin EC Low Dose* 81 MG TAB.EC PO SCH (09:23)
[2017-04-02] MEDS: Metoprolol Tartrate TAB* 50 mg PO SCH ×2 (09:24→13:56)
[2017-04-02] MEDS: Spironolactone TAB* 25 MG PO SCH (09:24)
[2017-04-02] MEDS: CMC:Fenofibrate(NF) 160 MG TAB PO SCH (09:24)
[2017-04-02] MEDS: Omeprazole CAP* 20 MG PO SCH (09:24)
[2017-04-02] MEDS: Cetirizine* 10 MG TAB PO SCH (09:24)
[2017-04-02] MEDS: Potassium Chlor TAB* 20 MEQ TAB.ER PO SCH (09:25)
[2017-04-02] MEDS: Lisinopril TAB* 10 MG PO SCH (09:25)
[2017-04-02] MEDS: Magnesium Oxide TAB* 400 MG PO SCH (09:26)
[2017-04-02] MEDS: Nystatin SUSPENSION* 100000 UNITS/ML 5 ML UDC PO SCH ×2 (09:27→13:57)
[2017-04-02] MEDS: CAMPHOR TOPICAL SCH (09:27)
[2017-04-02] MEDS: MENTHOL TOPICAL SCH (09:27)
[2017-04-02] MEDS: [UNRECOGNIZED DRUG - OTHER] TOPICAL SCH (09:27)
[2017-04-02] MEDS: METHYL SALICYLATE TOPICAL SCH (09:27)
[2017-04-02] MEDS: Enoxaparin(*) 40 MG/0.4 ML SYR SUBCUT SCH (09:29)
--- NOTE | 2017-04-02 12:16 | SURGPN ---
Subjective - Introduction -: Reports doing well overall. Denies any pain, nausea or vomiting. Tolerating diet and moving her bowels. Wants to go home. - Medications -: Active Medications Generic Name Dose Route Start Last Admin Trade Name Chaya PRN Reason Stop Dose Admin Acetaminophen 650 mg 03/29/17 17:58 04/01/17 20:54 Tylenol Tab* PO 650 mg Q4H PRN Administration FEVER/PAIN Aspirin 81 mg 03/30/17 09:00 04/02/17 09:23 Aspirin Ec Low Dose* PO 81 mg QAM [facility]OU Administration Atorvastatin Calcium 40 mg 03/29/17 21:00 04/01/17 22:20 Lipitor* PO 40 mg BEDTIME [facility] Administration Cetirizine HCl 10 mg 03/30/17 09:00 04/02/17 09:24 Zyrtec* PO 10 mg DAILY [facility] Administration Cholecalciferol 1,000 units 03/30/17 09:00 04/02/17 09:23 Vitamin D Tab* PO 1,000 units DAILY [facility]OU Administration Dextrose 12.5 gm 03/29/17 17:59 D50w Syringe 50 Ml* IV PUSH .FOR FS < 60 - SS PRN FS < 60 Digoxin 0.25 mg 03/30/17 09:00 04/02/17 09:22 Lanoxin Tab* PO 0.25 mg QAM [facility]OU Administration Enoxaparin Sodium 40 mg 03/30/17 09:00 04/02/17 09:29 Lovenox(*) SUBCUT 40 mg DAILY [facility] Administration Fenofibrate 160 mg 03/30/17 09:00 04/02/17 09:24 Tricor(Nf) PO 160 mg QAM [facility] Administration Protocol Heparin Sodium (Porcine) 1 ml 03/29/17 18:00 04/02/17 05:52 Heparin Flush Picc/Ml/Cvc(*) FLUSH 2 ml 0600,1800 [facility] Administration Protocol Sodium Chloride 1,000 mls @ 125 mls/hr 03/29/17 18:00 04/02/17 07:51 Ns 0.9% 1000 Ml* IV 125 mls/hr PER RATE [facility] Administration Piperacillin Sod/Tazobactam 100 mls @ 25 mls/hr 03/31/17 01:00 04/02/17 09:18 Sod 3.375 gm/ Sodium Chloride IVPB 25 mls/hr Q8H [facility] Administration Insulin Human Lispro 0 units 03/29/17 21:00 04/02/17 07:51 Humalog* SUBCUT Not Given ACHS [facility] Protocol Lisinopril 20 mg 03/30/17 09:00 04/02/17 09:25 Prinivil Tab* PO 20 mg QAM [facility] Administration Magnesium Oxide 2,000 mg 03/30/17 09:00 04/02/17 09:26 Magox 400 Tab* PO 2,000 mg DAILY [facility] Administration Meclizine HCl 25 mg 03/29/17 17:45 Antivert Tab* PO TID PRN VERTIGO Metoprolol Tartrate 50 mg 03/29/17 21:00 04/02/17 09:24 Lopressor Tab* PO 50 mg QID [facility] Administration Non-Formulary Medication 1 cre 03/30/17 09:00 04/02/17 09:27 Kjmmstn-Jemtuli-Pwhzrb Salicyl [Bengay Ultra Strength 4-10-30 %] TOPICAL Not Given DAILY [facility] Nystatin 500,000 units 03/29/17 21:00 04/02/17 09:27 Nystatin Suspension* PO 500,000 units QID [facility] Administration Omeprazole 20 mg 03/30/17 09:00 04/02/17 09:24 Prilosec Cap* PO 20 mg DAILY [facility] Administration Ondansetron HCl 4 mg 03/29/17 17:45 04/01/17 13:04 Zofran Odt Tab* PO 4 mg Q4HR PRN Administration NAUSEA Ondansetron HCl 4 mg 03/29/17 17:54 03/30/17 17:13 Zofran Inj* IV 4 mg Q4H PRN Administration NAUSEA Oxycodone/Acetaminophen 1 tab 03/29/17 17:45 04/02/17 11:10 Percocet 5/325 Tab* PO 1 tab Q6H PRN Administration PAIN Pharmacy Consult 1 note 03/30/17 19:00 Zosyn Per Pharmacy* FOLLOW UP .ZOSYN PER PHARMACY [facility] Potassium Chloride 20 meq 03/30/17 09:00 04/02/17 09:25 Klor Con Er Tab* PO 20 meq DAILY [facility] Administration Spironolactone 25 mg 03/30/17 09:00 04/02/17 09:24 Aldactone Tab* PO 25 mg DAILY [facility] Administration Objective - Objective -: Awake and alert, appears comfortable in bed. - Intake and Output -: Intake & Output 03/31/17 04/01/17 04/02/17 04/03/17 06:59 06:59 06:59 06:59 Intake Total 3720 3197 4385 100 Output Total 1804 695 1385 300 Balance 1966 2582 3208 -200 Weight 110 lb Intake: IV Fluids 2618 2393 3382 ABX - PENICILLIN 1702 ABX - ZOSYN 217 NS 916 2176 3382 IVPB 742 322 ABX - PENICILLIN 111 ABX - ZOSYN 322 PRBC 631 Medicated IV 64 201 Zosyn 64 potassium phosphate 201 Oral 360 730 480 100 Pigtail Drain 10 Output: BLANCHE #1 17 15 7 BLANCHE #2 37 0 5 Urine 2180 557 8813 300 Liquid Stool 40 Other: Estimated Void Medium Date of Last Bowel 04/01/17 04/01/17 Movement # Bowel Movements 1 1 1 Estimated Stool Amount Small Small Small Surgical Physical Exam - Comments -: VSS, afebrile Abdomen soft, NT and ND. Midline wound is granulating nicely. No bleeding or discharge noted upon removing wound vac dressing. Wound measures approx. 7cm long by 1cm wide, fairly superficial on most of it, except infraumbilical which extends to the deep fascia. Again no active bleeding or discharge noted. Wound vac dressing changes with ease. Assessment and Plan - Assessment -: A 57 y/o female with recent colectomy and laparotomy, with a healing midline wound. - Plan Additional Comments: Continue wound vac as instructed. Possible discharge to home today per medicine. Patient will F/U with her surgeon at [facility] regarding her wound and drains. Will F/U with her during her admission.
[2017-04-02] MEDS: Ondansetron ODT TAB* 4 MG PO PRN (13:59)
[2017-04-02 15:21] VITALS: BP 154/85
--- NOTE | 2017-04-02 16:00 | DS ---
DATE OF ADMISSION: 03/29/2017. DATE OF DISCHARGE TO [facility]: 04/02/2017. OUTPATIENT SURGEON/PHYSICIAN: Dr. Nishant Landeros, [place] and Dr. Dagoberto Scott. STATUS DURING HOSPITALIZATION: Inpatient. PRINCIPAL DISCHARGE DIAGNOSIS: Postoperative ileus and wound infection with wound VAC, status post laparotomy and colectomy for colon cancer. SECONDARY DIAGNOSES: 1. Acute renal failure during admission with greater than doubling of serum creatinine and less keyon n 50 percent of baseline GFR. 2. Initial hyponatremia with resolution by discharge with rehydration. 3. Iron deficiency anemia, status post two units red blood cell transfusion with religious of hem oglobin greater than 10. 4. Abnormal urinalysis. DISCHARGE MEDICATION REGIMEN: 1. New: Amoxicillin Clavulanic Acid 875 mg strength one tab by mouth twice daily for 5 days then s top. 2. Aspirin 81 mg by mouth daily. 3. Lipitor 40 mg by mouth at bedtime. 4. Ugfjawu-Ytvraoz-Pznwfk Salicyl (Bengay Ultra Strength) apply to affected area twice daily as nee ded. 5. Loratadine 10 mg by mouth daily. 6. Cholecalciferol 1000 units by mouth daily. 7. Digoxin 0.25 mg by mouth daily. 8. Fenofibrate 160 mg by mouth daily. 9. Lisinopril 20 mg by mouth daily. 10. Magnesium Oxide 2000 mg by mouth daily. 11. Meclizine 25 mg by mouth 3 times daily prn vertigo. 12. Metoprolol 50 mg by mouth 4 times daily. 13. Nystatin 5 ml by mouth 4 times daily 100,000 units/ml - UDC. 14. Protonix 40 mg by mouth daily. 15. Zofran 4 mg by mouth every 4 hours as needed for nausea. 16. Potassium Chloride 20 mEq by mouth daily. 17. Spironolactone 25 mg by mouth daily. 18. Oxycodone/acetaminophen 5/325 mg strength one tab by mouth every 6 hours as needed for pain. 19. Docusate 100 mg by mouth daily. 20. Ferrous Sulfate 325 mg by mouth twice daily (new). 21. Lasix 20 mg by mouth twice daily. 22. Gabapentin 300 mg by mouth 3 times daily (Neurontin). 23. [place]-3 fatty acids 1000 mg by mouth daily. 24. Glipizide 10 mg by mouth twice daily. 25. Metformin 1000 mg by mouth twice daily. HISTORY OF PRESENT ILLNESS AND HOSPITAL COURSE: Please see the Surgical consultation by Dr. Pepe blanca and the history and physical by Dr. Jluis Reis. In brief, Ms. Evangelista is a 57-year-old fem ashwini who is one month status post transverse and descending colectomy for colon cancer. This was a l aparotomy. The patient has had a recent hemicolectomy for polyp disease. The patient underwent an anastomosis of the distal ileum to the sigmoid colon in end-to-end fashion with closure of the mesen teric defect. The patient had a return to OR on postoperative day number four for abdominal distent ion and possibly obstruction. There were signs of sepsis at that time and the patient had a removal of a single suture on a portion of the small bowel. The patient's abdominal wall was closed to the fascial layer, but the skin was left open and a vacuum dressing applied. This was on 03/08/2017. The patient went back to the Radiology suite on two occasions for placement of intra-abdominal and l ikely pelvic drains for abscesses. The patient's drains are described by the Surgical consultation. The patient had been on TPN and spent a fair amount of time in the ICU at [facility] [address] [facility]. The frida ent was tolerating a soft diet and pain was controlled with oral medications. The patient was trans ferred to a usp in [facility], but was found with a heart rate in the 140s and a blood pressure that was soft. The patient came to the emergency room and was admitted to the Hospitalist Service for metabolic derangements with a creatinine of 1.57 and a sodium depressed at 129. The dulce franklin was not having any abdominal pain, but did have nausea and vomiting. Her oral intake was poor . She was very lethargic. The patient was aggressively hydrated. She was started on IV antibiotics - IV Zosyn - to cover for anaerobic organism. The patient remained hemodynamically stable. She was fairly anemic and so she received the two unit blood cell transfusion. She was also started on ora l iron after iron studies demonstrated iron deficiency. The patient has been doing well throughout the course of the hospitalization and has been slowly recovery. She states she is now eating and moore ving and having bowel movements. She is not having abdominal pain. She is interested in discharge. At this point, she is stable for discharge. She should follow-up with her surgeon next week, the week of 04/05/2017. The patient is going to reach out to her surgeon to make the appointment. I be lieve that Surgical [facility] has notified that team of the patient's presence in the hospital. Ms. Evangelista can come back to the emergency room if she experiences any new or worrisome symptoms , including but not limited to abdominal pain, inability to tolerate oral food or liquid. The patie nt will return to [facility] and continue wound VAC therapy. I believe she is going to be seen at [facility]. The two BLANCHE drains that are in place are still being followed by laurence frausto. Concern for wound infection was allayed by the absence of leukocytosis or fevers or instability d uring this hospitalization. The patient is not tachycardic and has a robust blood pressure. She is being discharged home on the majority of her home medications with the exception of adding oral iro n as well as oral Augmentin for an additional five days. Total time taken to discharge Ms. Evangelista was 45 minutes, greater than half that time was spent going over the discharge instructions [id number] with the patient. Return to ED instructions were given to the patient directly. CONDITION ON DISCHARGE/TRANSFER: Stable. [id number]/[facility] #: [id number]
--- NOTE | 2017-04-04 07:47 | PN ---
Subjective Date of Service: 04/01/17 Interval History: . patient feels "blah" still poor appetite. wound vac applied labs without serious derangement (low mag / phos noted). surgical consult appreciated. Family History: Unchanged from Admission Social History: Unchanged from Admission Past Medical History: Unchanged from Admission Objective Active Medications: see MAR Vital Signs: reviewed . Oxygen Devices in Use Now: Nasal Cannula Appearance: NAD at this time. Ears/Nose/Mouth/Throat: NL Teeth, Lips, Gums Neck: NL Appearance and Movements; NL JVP Respiratory: Symmetrical Chest Expansion and Respiratory Effort Cardiovascular: NL Sounds; No Murmurs; No JVD Abdominal: - - anterior wound dressed with vac applied. Lymphatic: No Cervical Adenopathy Extremities: No Edema Skin: No Rash or Ulcers Neurological: Alert and Oriented x 3 Lines/Tubes/Other Access: Clean, Dry and Intact Peripheral IV, Clean, Dry and Intact Central Line - triple lumen cath, Clean, Dry and Intact Other Access - BLANCHE drains x 2 Nutrition: Taking PO's Result Diagrams: 04/01/17 05:32 04/01/17 05:32 Microbiology and Other Data: Microbiology 03/29/17 18:10 Nasal Screen MRSA (PCR)(RADHA) - Final Nasal Mrsa Negative Assess/Plan/Problems-Billing . Assessment: 57 yo female with recent colon resection for colon cancer with two BLANCHE drains in situ and anterior abdominal wall wound. + severe anemia + dehydration and hyponatremia and hypovolemia with acute renal failure - Patient Problems (1) Nausea and vomiting Status: Acute Priority: High Code(s): R11.2 - NAUSEA WITH VOMITING, UNSPECIFIED Comment: - clears --> advance - Zofran, prn (2) Hypovolemia associated with vomiting Status: Acute Priority: High Code(s): E86.1 - HYPOVOLEMIA Comment: - volume replacement (3) Severe anemia Status: Acute Priority: High Code(s): D64.9 - ANEMIA, UNSPECIFIED Comment : - 2 unit prbc tranfusion - AM CBC showed great improvement in H/H (hgb > 11) (4) Colon cancer Status: Acute Comment: - s/p colectomy. (5) Open abdominal wall wound Status: Acute Priority: High Code(s): S31.109A - UNSP OPN WND ABD WALL, UNSP Q W/O PENET PERIT CAV, INIT Comment: - surgical consult appreciated - wound vac ordered / applied - BLANCHE drains in place with output noted by staff registered nurse (6) Acute renal failure (ARF) Status: Acute Priority: High Comment: - follow creatinine, down < 1.
--- NOTE | 2017-04-04 07:49 | PN ---
Hospitalist Progress Note . HOSPITALIST DISCHARGE NOTE: See dc instructions and summary by me. Patient stable for dc dc instructions reviewed with the patient at the bedside. DC patient to [facility] today.
== END 2017-04-02 17:00 | DRG 863 ==
LOC: ED 12:20 → SSU 17:59
PROVIDERS: ADMIT Internal Medicine; ATTEND Internal Medicine
PROC: 30233N1 Transfusion of Nonautologous Red Blood Cells into Peripheral Vein, Percutaneous Approach (ICD-10-PCS; 2017-03-30)
PROC: 2W13X6Z Compression of Abdominal Wall using Pressure Dressing (ICD-10-PCS; principal; 2017-03-31)
DX: T81.4XXA Infection following a procedure, initial encounter (principal); N17.9 Acute kidney failure, unspecified; I50.9 Heart failure, unspecified; E87.1 Hypo-osmolality and hyponatremia; K56.7 Ileus, unspecified; C18.9 Malignant neoplasm of colon, unspecified; E83.42 Hypomagnesemia; E86.0 Dehydration; I48.91 Unspecified atrial fibrillation; E86.1 Hypovolemia; R11.2 Nausea with vomiting, unspecified; R62.7 Adult failure to thrive; D50.9 Iron deficiency anemia, unspecified; R82.90 Unspecified abnormal findings in urine; Z95.0 Presence of cardiac pacemaker; Z88.1 Allergy status to other antibiotic agents; Z91.010 Allergy to peanuts; Z82.49 Family history of ischemic heart disease and other diseases of the circulatory system; Z87.891 Personal history of nicotine dependence; Z90.49 Acquired absence of other specified parts of digestive tract; Z79.82 Long term (current) use of aspirin; Z79.84 Long term (current) use of oral hypoglycemic drugs; Z86.010 Personal history of colon polyps
CPT/HCPCS: 36415; 71010; 74177; 80048; 80053; 81003; 81015; 82272; 82550; 82803; 83605; 83630; 83690; 83735; 84100; 84484; 85025; 85060; 86140; 86850; 86900; 86901; 86922; 87045; 87046; 87070; 87076; 87077; 87086; 87106; 87177; 87185; 87186; 87205; 87209; 87328; 87329; 87493; 87640; 87641; 87899; 93005; A9270-GY; J1650; J2405; J2543; P9040; Q9967

== ENCOUNTER 2017-04-07 16:14 | Inpatient (IN) | payer MEDICARE ==
[2017-04-07 17:43] LABS: Hematocrit 34 % (35-47); Hemoglobin 11.1 g/dl (12.0-16.0); Mean Corpuscular HGB Conc 32 g/dl (31-36); Mean Corpuscular Hemoglobin 29 pg (27-31); Mean Corpuscular Volume 90 fL (80-97); Mean Platelet Volume 8 um3 (7.4-10.4); Red Blood Count 3.83 10^6/ul (4.0-5.4); Red Cell Distribution Width 17 % (10.5-15); White Blood Count 3.9 10^3/ul (3.5-10.8)
[2017-04-07 17:58] LABS: Ammonia 41 mol/L (16-53)
[2017-04-07 18:00] LABS: ALT 6 U/L (7-52); AST 17 U/L (13-39); Albumin 2.4 g/dL (3.2-5.2); Alkaline Phosphatase 74 U/L (34-104); Blood Urea Nitrogen 21 mg/dL (6-24); CO2 Carbon Dioxide 20 mmol/L (22-32); Calcium 8.9 mg/dL (8.6-10.3); Chloride 108 mmol/L (101-111); Creatine Kinase 16 U/L (10-223); EGFR Non-African American 35.8 (>60); Globulin 3.3 g/dL (2-4); Glucose 132 mg/dL (70-100); Lipase 15 U/L (11.0-82.0); Magnesium 1.1 mg/dL (1.9-2.7); Sodium 130 mmol/L (133-145); Total Protein 5.7 g/dL (6.4-8.9)
[2017-04-07 18:01] LABS: Troponin I 0.03 ng/mL (<0.04)
[2017-04-07 18:03] LABS: Anion Gap 2 mmol/L (2-11); B Type Natriuretic Peptide 950 pg/mL; Potassium 6.5 mmol/L (3.5-5.0)
[2017-04-07 18:18] LABS: Acetaminophen < 15 mcg/mL; Alcohol < 10 mg/dL (<10); Salicylate < 2.50 mg/dL (<30)
[2017-04-07] MEDS: NS 0.9% 1000 ML* 1,000 ML IV SCH (18:18)
[2017-04-07 18:23] LABS: Digoxin 2.6 ng/ml (0.8-2.0)
[2017-04-07 18:29] LABS: TSH (Thyroid Stimulating Horm) 2.33 mcIU/mL (0.34-5.60)
--- NOTE | 2017-04-07 18:32 | RAD ---
Indication: Altered mental status. Increased confusion. The patient has not eaten in multiple days. Comparison: March 29, 2017 Technique: Upright AP 1750 hours Report: Clear lungs. Potential small dependent pleural effusions. Negative for pneumothorax. Cardiomegaly. RIGHT atrial and RIGHT ventricular level pacemaker leads. Unremarkable central pulmonary vasculature and mediastinal contours. IMPRESSION: Potential trace pleural effusions.
[2017-04-07] MEDS ORDERED: Digoxin Immune Fab* 40 MG VIAL IV ONE (18:45)
[2017-04-07] MEDS ORDERED: Sodium Polystyrene ORAL.SOL* 15 GM/60 ML BTL PO ONE (18:46)
[2017-04-07] MEDS ORDERED: Sterile Water for Inj* 10 ML ONE (18:49)
[2017-04-07] MEDS ORDERED: Magnesium Sulfate 2 GM IV* 2 GM/50 ML BAG IVPB ONE (18:50)
[2017-04-07] MEDS ORDERED: Dextrose 50% Syringe 50 ML* 25 GM/50 ML SYRINGE IV PUSH PRN (19:13)
[2017-04-07] MEDS ORDERED: Furosemide IV* 10 MG/ML VIAL (40 MG) IV ONE (19:16)
[2017-04-07] MEDS ORDERED: Iodixanol* (CONTRAST) 320 MG/ML 100 ML SDV IV ONE (19:25)
[2017-04-07] MEDS ORDERED: NS 0.9% 1000 ML* 1,000 ML IV SCH (19:30)
--- NOTE | 2017-04-07 19:35 | ADMNOTE ---
Subjective Date of Service: 04/07/17 Interval History: ADMISSION HISTORY AND PHYSICAL EXAM: Allergies Allergy/AdvReac Type Severity Reaction Status Date / Time Azithromycin [From Zithromax] Allergy Hives Verified 04/07/17 16:26 Peanut Oil Allergy Hives/Diff. Verified 04/07/17 16:26 Breathing/I tching Home Medications Medication Instructions Recorded Confirmed Type Aspirin EC Low Dose* [Ecotrin EC 81 mg PO QAM 03/29/17 04/07/17 History Low Dose 81 MG*] Atorvastatin* [Lipitor 40 MG*] 40 mg PO BEDTIME 03/29/17 04/07/17 History Hijzzkl-Ovsduey-Qglkib Salicyl 1 cre TOPICAL DAILY 03/29/17 04/07/17 History [Bengay Ultra Strength 4-10-30 %] Cholecalciferol TAB* [Vitamin D 2,000 unit PO DAILY 03/29/17 04/07/17 History TAB*] Digoxin TAB* [Lanoxin TAB*] 0.25 mg PO QAM 03/29/17 04/07/17 History Docusate CAP* [Colace Cap*] 100 mg PO QAM 03/29/17 04/07/17 History Enoxaparin(*) [Lovenox(*)] 40 mg SUBCUT DAILY 03/29/17 04/07/17 History Fenofibrate(NF) [Tricor(NF)] 160 mg PO QAM 03/29/17 04/07/17 History Ferrous Sulfate TAB* 325 mg PO BID 03/29/17 04/07/17 History Furosemide TAB* [Lasix TAB*] 20 mg PO BID 03/29/17 04/07/17 History Gabapentin CAP(*) [Neurontin 300 300 mg PO TID 03/29/17 04/07/17 History CAP(*)] Lisinopril TAB* [Prinivil TAB 10 20 mg PO QAM 03/29/17 04/07/17 History MG*] LoraTADine TAB(NF) [Claritin 10 MG 10 mg PO DAILY 03/29/17 04/07/17 History TAB(NF)] Magnesium Oxide [Magnesium] 2,000 mg PO DAILY 03/29/17 04/07/17 History Meclizine TAB* [Antivert 12.5 TAB*] 25 mg PO TID PRN 03/29/17 04/07/17 History Metoprolol Tartrate TAB* 50 mg PO QID 03/29/17 04/07/17 History [Lopressor TAB*] Nystatin SUSPENSION* 5 ml PO QID 03/29/17 04/07/17 History [place]-3 Fatty Acids (Nf) [Fish Oil 1,000 mg PO DAILY 03/29/17 04/07/17 History (NF)] Ondansetron ODT TAB* [Zofran 4 MG 4 mg PO Q4HR PRN 03/29/17 04/07/17 History Odt TAB*] Pantoprazole TAB (NF) [Protonix 40 mg PO DAILY 03/29/17 04/07/17 History TAB (NF)] Potassium Chlor TAB* [Potassium 20 meq PO DAILY 03/29/17 04/07/17 History Chlor TAB 20 MEQ*] Spironolactone TAB* [Aldactone TAB 25 mg PO DAILY 03/29/17 04/07/17 History 25 MG*] glipiZIDE TAB* [Glucotrol TAB*] 10 mg PO BID 03/29/17 04/07/17 History metFORMIN* [Glucophage 1000 MG TAB 1,000 mg PO BID 03/29/17 04/07/17 History *] oxyCODONE/Acetamin 5/325 MG* 1 - 2 tab PO Q6H PRN 03/29/17 04/07/17 History [Percocet 5/325 TAB*] Amoxicillin/Clavulanate TAB* 875 mg PO BID #10 tab 04/02/17 04/07/17 Rx [Augmentin TAB 875*] Albuterol Sulfate [Proair 108 mcg IN Q6HR PRN 04/07/17 04/07/17 History Respiclick] Dicyclomine CAP* [Bentyl CAP*] 10 mg PO ACHS PRN 04/07/17 04/07/17 History HPI: Patient had near-total colectomy with primary terminal ileum to sigmoid anastamosis 03/01/2017 at [facility] for cancer. Prior R colectomy about 4 yrs ago for a metachronous cancer. 1 week after her second surgery she had emergency laparotomy. About a week later she was sent to [facility] for rehab. She has 2 BLANCHE drains in and has not seen her [facility] surgeon since her discharge from [facility]. Today she was found to be confused. She states she ate nothing today. She denies emesis. Her memory is poor and she is not a reliable historian. Both her mother and her daughter are at her bedside and her mother visited the patient at [facility] yesterday and states the patient was fine. Family History: Findings - noncontributory Social History: Findings - 2 children (daughters), both are her SDM. Quit smoking 8 yrs ago. No alcohol abuse. Past Medical History: Findings - DE, AICD, atrial fib, DM. Appy, cholecystectomy. Review of Systems - Measurements Intake and Output: Intake and Output Last 24 Hours 04/05/17 04/06/17 04/07/17 04/08/17 06:59 06:59 06:59 06:59 Weight 150 lb - Review of Systems General Comments: unobtainable due to her confusion. Objective Active Medications: Dextrose (D50w Syringe 50 Ml*) 12.5 gm IV PUSH .FOR FS < 60 - SS PRN PRN Reason: FS < 60 Sodium Chloride (Ns 0.9% 1000 Ml*) 1,000 mls @ 150 mls/hr IV PER RATE [facility] Last Admin: 04/07/17 18:18 Dose: 150 mls/hr Magnesium Sulfate (Magnesium Sulfate 2 Gm Iv*) 2 gm in 50 mls @ 50 mls/hr IVPB ONCE ONE Stop: 04/07/17 19:49 Last Admin: 04/07/17 19:05 Dose: 50 mls/hr Sodium Chloride (Ns 0.9% 1000 Ml*) 1,000 mls @ 150 mls/hr IV PER RATE [facility] Insulin Human Lispro (Humalog*) 0 units SUBCUT Q4HR [facility] PRN Reason: Protocol Vital Signs 04/07/17 04/07/17 04/07/17 16:19 16:32 16:33 Temperature 99.8 F Pulse Rate 115 118 Respiratory 18 Rate Blood Pressure 169/86 183/109 (mmHg) O2 Sat by Pulse 97 96 Oximetry 04/07/17 04/07/17 04/07/17 17:00 17:40 17:48 Temperature Pulse Rate 115 112 Respiratory 21 17 23 Rate Blood Pressure 176/98 (mmHg) O2 Sat by Pulse 95 97 Oximetry 04/07/17 04/07/17 04/07/17 18:00 18:30 19:00 Temperature Pulse Rate 115 122 Respiratory 21 22 Rate Blood Pressure 176/91 177/93 177/101 (mmHg) O2 Sat by Pulse 98 97 Oximetry Oxygen Devices in Use Now: None Appearance: Supine on ED stretcher. Alert. Looks comfortable at rest. Eyes: No Scleral Icterus Ears/Nose/Mouth/Throat: Clear Oropharnyx, Mucous Membranes Moist Neck: NL Appearance and Movements; NL JVP, No Thyroid Enlargement, Masses Respiratory: Symmetrical Chest Expansion and Respiratory Effort, Clear to Auscultation, Clear to Percussion Cardiovascular: NL Sounds; No Murmurs; No JVD, RRR, No Edema, - - AICD L subclavicular area Abdominal: - - soft, distended. Midline bandage. BLANCHE drain in each flank. Gurgly BS. Mod tenderness diffusely. Extremities: No Clubbing, Cyanosis, - - 1+ edema Skin: No Rash or Ulcers, No Nodules or Sclerosis, - Neurological: NL Sensation, - - Could not state present month, gave her correct age, did not know she was in a hospital. Result Diagrams: 04/07/17 17:30 04/07/17 17:30 Assess/Plan/Problems-Billing Assessment: - Patient Problems (1) Altered mental state Current Visit: Yes Status: Acute Code(s): R41.82 - ALTERED MENTAL STATUS, UNSPECIFIED SNOMED Code(s): 599387181 Comment: Likely due to digtoxicity. Digoxin Ab ordered. CT brain pending. (2) Digoxin toxicity Current Visit: Yes Status: Acute Code(s): T46.0X1A - POISONING BY CARDI- STIM GLYCOS/DRUG SIMLAR ACT, ACC, INIT SNOMED Code(s): 48835225 Comment: Digoxin Ab ordered. ICU care. (3) Acute renal failure (ARF) Current Visit: No Status: Acute Priority: High Comment: IVF. Oral Kayexalate 30 gm given, furosemide 40 mg IV. [facility] 2329 and again 04/08. (4) CAD (coronary artery disease) Current Visit: Yes Status: Acute Code(s): I25.10 - ATHSCL HEART DISEASE OF [place] CORONARY ARTERY W/O ANG PCTRS SNOMED Code(s): 36920559 Comment: Resume ASA, BB, statin as appropriate. (5) Abdominal tenderness Current Visit: Yes Status: Acute Code(s): R10.819 - ABDOMINAL TENDERNESS, UNSPECIFIED SITE SNOMED Code(s): 65899257 Comment: CT abd/pelvis pending. Dr. Carrillo gentile for soncult if needed. (6) Diabetes Current Visit: Yes Status: Acute Code(s): E11.9 - TYPE 2 DIABETES MELLITUS WITHOUT COMPLICATIONS SNOMED Code(s): 53257959 Comment: Lispro SS q 4 hr. Hold metformin.
--- NOTE | 2017-04-07 20:04 | RAD ---
Indication: Altered mental status. Abdominal pain and bloating. Comparison: No relevant prior exams available on the [facility] PACS for comparison. Technique: Noncontrast CT vertex of skull through foramen magnum. Report: The sulci, ventricles, and basal cisterns are normal for age. Rodriguez matter white matter differentiation is preserved without evidence for edema. No intra or extra axial hemorrhage, mass, or fluid collection detected. Unremarkable visualized orbital contents. Unremarkable calvarium and skull base. Unremarkable scalp. The visualized paranasal sinuses and mastoid air spaces are clear. IMPRESSION: Negative exam. Unenhanced head CT.
--- NOTE | 2017-04-07 20:20 | RAD ---
INDICATION: Abdominal pain and bloating. Not eating for multiple days. Increased confusion. Previous colon surgery with resections. History of colon carcinoma. COMPARISON: April 01, 2017 CT. TECHNIQUE: Multidetector CT images were obtained from the lung bases to the ischial tuberosities. Oral contrast administered. Assessment of the visceral limited without IV contrast. REPORT: Small dependent pleural effusions with proportional compressive atelectasis. RIGHT atrial and RIGHT ventricular level pacemaker leads. Mild cardiomegaly. Negative for significant pericardial effusion. Unremarkable unenhanced liver. Post cholecystectomy. Unchanged magnitude of dilatation of the common bile duct measuring 1.2 cm diameter which may be a normal finding post cholecystectomy. Advanced atrophy of the pancreas. Unremarkable spleen. Small splenule anterior to the dominant spleen. Postsurgical change of partial colectomy with suggestion of a small bowel sigmoid bowel anastomosis at the RIGHT lower quadrant. Enteric contrast reaches the ileum. Dilated small bowel loops in the upper abdomen with air-fluid levels similar to the prior exam is most suspicious for ileus. Negative for ascites or free air. No peritoneal abscess collection evident. Anterior and posterior RIGHT para midline percutaneous drainage catheters remain in place without suggestion of significant residual loculated fluid collections. Normal adrenal glands. Negative for obstructive uropathy. Unremarkable partially distended urinary bladder. Unremarkable uterus and adnexal regions. No lymphadenopathy evident. Atherosclerotic calcification of normal diameter abdominal aorta and iliac arteries. Decompressed IVC indicating low volume state. Negative for suspicious focal osseous lesions. Diffuse subcutaneous edema. IMPRESSION: 1. The constellation of findings may represent small bowel ileus or partial small bowel obstruction. There is no significant interval change compared with the April 01, 2017 exam. 2. Anterior and posterior RIGHT para midline percutaneous drainage catheters remain in place without suggestion of significant residual loculated fluid collections. 3. Bilateral small pleural effusions similar to the prior exam.
[2017-04-07] MEDS: Insulin LISPRO* 1 UNITS UNIT SUBCUT SCH (20:25)
--- NOTE | 2017-04-07 22:44 | ED ---
Edwar Dykes Auryana, scribed for Osbaldo Gifford MD on 04/07/17 at 1657 . Neurological HPI - HPI Summary HPI Summary: 57 year old female presents with confusion starting today per family. Patient c/ o of headache, neck pain, and abdominal pain. She denies any chest pain. Per report from [facility] - patient has not been eating for the last 3-4 days. PMHx is significant for HTN, and colostomy (February 2017 staple found to be misplaced). No history of liver or kidney problems. She currently lives at [facility]. PATIENT IS A LEVEL 5 CAVEAT DUE TO CONFUSION/AMS. - History of Current Complaint Chief Complaint: EDWeakness Stated Complaint: AMS Time Seen by Provider: 04/07/17 16:53 Last Known Well Date: 04/06/17 Hx Obtained From: Patient, Family/Child Life Specialist Hx From Patient Unobtainable Due To: Other - PATIENT IS A LEVEL 5 CAVEAT DUE TO CONFUSION/AMS Onset Severity: Moderate Current Severity: Moderate Neurological Deficit Location: RUE, LUE, RLE, LLE Associated Signs and Symptoms: Positive: Headache, Confusion, Neck Pain/ Stiffness - Additional Pertinent History Primary Care Physician: [id number] - Allergy/Home Medications Allergies/Adverse Reactions: Allergies Allergy/AdvReac Type Severity Reaction Status Date / Time Azithromycin [From Zithromax] Allergy Hives Verified 04/07/17 16:26 Peanut Oil Allergy Hives/Diff. Verified 04/07/17 16:26 Breathing/I tching Home Medications: Home Medications Albuterol Sulfate [Proair Respiclick] 108 mcg IN Q6HR PRN 04/07/17 [History Confirmed 04/07/17] Dicyclomine CAP* [Bentyl CAP*] 10 mg PO ACHS PRN 04/07/17 [History Confirmed ] PMH/Surg Hx/FS Hx/Imm Hx Endocrine/Hematology History: Reports: Hx Diabetes Cardiovascular History: Reports: Hx Atrial Fibrillation, Hx Congestive Heart Failure, Hx Hypertension, Hx Pacemaker/ICD, Other Cardiovascular Problems/ Disorders - Irregular heartbeat, has pacemaker Denies: Hx Cardiac Arrest Respiratory History: Reports: Hx Asthma, Hx Chronic Obstructive Pulmonary Disease (COPD), Hx Pneumonia Denies: Hx Seasonal Allergies, Hx Sleep Apnea GI History: Reports: Hx Gastroesophageal Reflux Disease, Hx Irritable Bowel, Hx Obstructive Bowel - multiple Musculoskeletal History: Reports: Hx Arthritis Denies: Hx Back Problems, Hx Fibromyalgia, Hx Gout Sensory History: Reports: Hx Contacts or Glasses - Reading glasses Denies: Hx Hearing Aid Opthamlomology History: Reports: Hx Contacts or Glasses - Reading glasses Neurological History: Reports: Hx Headaches, Other Neuro Impairments/Disorders - Vertigo Denies: Hx Migraine, Hx Seizures, Hx Transient Ischemic Attacks (TIA) - Cancer History Cancer Type, Location and Year: Colon - Surgical History Surgery Procedure, Year, and Place: Colon Surgery with Dr. Bello Ross Hx Anesthesia Reactions: No Infectious Disease History: No Infectious Disease History: Denies: Traveled Outside the [place] in Last 30 Days - Family History Known Family History: Positive: Hypertension - in mother - Social History [facility]: [facility] Alcohol Use: Occasionally Substance Use Type: Reports: None Hx Tobacco Use: Yes Smoking Status (MU): Former Smoker Review of Systems - ROS Summary Review of Systems Summary: PATIENT IS A LEVEL 5 CAVEAT DUE TO CONFUSION/AMS Positive: Other - CONFUSION Positive: Abdominal Pain Positive: Other - NECK PAIN Neurological: Other - CONFUSION Positive: Headache All Other Systems Reviewed And Are Negative: No Physical Exam - Summary Physical Exam Summary: General: well-appearing, no pain distress. Skin: warm, color reflects adequate perfusion, dry Head: normal Eyes: EOMI, CHILANGO ENT: normal Neck: supple, nontender Respiratory: CTA, breath sounds present Cardiovascular: RRR Abdomen: soft, diffusely tender to palpation, abdomen is tympanitic. Bowel: present- high pitched bowel sounds. Musculoskeletal: normal, strength/ROM intact Neurological: normal, No focal neurological deficits, sensory/motor intact, A&O x3. Confused, with difficulty following commands. Psychological: affect/mood appropriate. GCS - 14 PATIENT IS A LEVEL 5 CAVEAT DUE TO CONFUSION/AMS Triage Information Reviewed: Yes Vital Signs On Initial Exam: Initial Vitals Temp Pulse Resp BP Pulse Ox 99.8 F 115 18 169/86 97 04/07/17 16:19 04/07/17 16:19 04/07/17 16:19 04/07/17 16:19 04/07/17 16:19 Vital Signs Reviewed: Yes - Matthew Coma Scale Best Eye Response: 4 - Spontaneous Best Motor Response: 1 - None Best Verbal Response: 4 - Confused Coma Scale Total: 14 Diagnostics - Vital Signs Vital Signs Temp Pulse Resp BP Pulse Ox 04/07/17 16:33 118 96 04/07/17 16:32 183/109 04/07/17 16:19 99.8 F 115 18 169/86 97 - Laboratory Lab Results: Lab Results 04/07/17 04/07/17 04/07/17 Range/Units 17:30 17:30 17:30 WBC 3.9 (3.5-10.8) 10^3/ul RBC 3.83 L (4.0-5.4) 10^6/ul Hgb 11.1 L (12.0-16.0) g/dl Hct 34 L (35-47) % MCV 90 (80-97) fL MCH 29 (27-31) pg MCHC 32 (31-36) g/dl RDW 17 H (10.5-15) % Plt Count 194 (150-450) 10^3/ul MPV 8 (7.4-10.4) um3 Neut % (Auto) 67.3 (38-83) % Lymph % (Auto) 23.4 L (25-47) % Barnes % (Auto) 8.4 (1-9) % Eos % (Auto) 0.5 (0-6) % Baso % (Auto) 0.4 (0-2) % Absolute Neuts (auto) 2.6 (1.5-7.7) 10^3/ul Absolute Lymphs (auto) 0.9 L (1.0-4.8) 10^3/ul Absolute Monos (auto) 0.3 (0-0.8) 10^3/ul Absolute Eos (auto) 0 (0-0.6) 10^3/ul Absolute Basos (auto) 0 (0-0.2) 10^3/ul Absolute Nucleated RBC 0 10^3/ul Nucleated RBC % 0 INR (Anticoag Therapy) 1.35 H (0.89-1.11) APTT 44.8 H (26.0-36.3) seconds Sodium 130 L (133-145) mmol/L Potassium 6.5 H* (3.5-5.0) mmol/L Chloride 108 (101-111) mmol/L Carbon Dioxide 20 L (22-32) mmol/L Anion Gap 2 (2-11) mmol/L BUN 21 (6-24) mg/dL Creatinine 1.50 H (0.51-0.95) mg/dL Est GFR ( Amer) 46.0 (>60) Est GFR (Non-Af Amer) 35.8 (>60) BUN/Creatinine Ratio 14.0 (8-20) Glucose 132 H (70-100) mg/dL Lactic Acid (0.5-2.0) mmol/L Calcium 8.9 (8.6-10.3) mg/dL Magnesium 1.1 L (1.9-2.7) mg/dL Total Bilirubin 0.40 (0.2-1.0) mg/dL AST 17 (13-39) U/L ALT 6 L (7-52) U/L Alkaline Phosphatase 74 (34-104) U/L Ammonia (16-53) mol/L Total Creatine Kinase 16 (10-223) U/L CK-MB (CK-2) 4.3 (0.6-6.3) ng/mL Troponin I 0.03 (<0.04) ng/mL C-Reactive Protein 14.60 H (< 5.00) mg/L B-Natriuretic Peptide ( - 100) pg/mL Total Protein 5.7 L (6.4-8.9) g/dL Albumin 2.4 L (3.2-5.2) g/dL Globulin 3.3 (2-4) g/dL Albumin/Globulin Ratio 0.7 L (1-3) Lipase 15 (11.0-82.0) U/L TSH 2.33 (0.34-5.60) mcIU/mL Digoxin 2.6 H* (0.8-2.0) ng/ml Salicylates < 2.50 (<30) mg/dL Acetaminophen < 15 mcg/mL Serum Alcohol < 10 (<10) mg/dL 04/07/17 04/07/17 Range/Units 17:30 17:30 WBC (3.5-10.8) 10^3/ul RBC (4.0-5.4) 10^6/ul Hgb (12.0-16.0) g/dl Hct (35-47) % MCV (80-97) fL MCH (27-31) pg MCHC (31-36) g/dl RDW (10.5-15) % Plt Count (150-450) 10^3/ul MPV (7.4-10.4) um3 Neut % (Auto) (38-83) % Lymph % (Auto) (25-47) % Barnes % (Auto) (1-9) % Eos % (Auto) (0-6) % Baso % (Auto) (0-2) % Absolute Neuts (auto) (1.5-7.7) 10^3/ul Absolute Lymphs (auto) (1.0-4.8) 10^3/ul Absolute Monos (auto) (0-0.8) 10^3/ul Absolute Eos (auto) (0-0.6) 10^3/ul Absolute Basos (auto) (0-0.2) 10^3/ul Absolute Nucleated RBC 10^3/ul Nucleated RBC % INR (Anticoag Therapy) (0.89-1.11) APTT (26.0-36.3) seconds Sodium (133-145) mmol/L Potassium (3.5-5.0) mmol/L Chloride (101-111) mmol/L Carbon Dioxide (22-32) mmol/L Anion Gap (2-11) mmol/L BUN (6-24) mg/dL Creatinine (0.51-0.95) mg/dL Est GFR ( Amer) (>60) Est GFR (Non-Af Amer) (>60) BUN/Creatinine Ratio (8-20) Glucose (70-100) mg/dL Lactic Acid 1.2 (0.5-2.0) mmol/L Calcium (8.6-10.3) mg/dL Magnesium (1.9-2.7) mg/dL Total Bilirubin (0.2-1.0) mg/dL AST (13-39) U/L ALT (7-52) U/L Alkaline Phosphatase (34-104) U/L Ammonia 41 (16-53) mol/L Total Creatine Kinase (10-223) U/L CK-MB (CK-2) (0.6-6.3) ng/mL Troponin I (<0.04) ng/mL C-Reactive Protein (< 5.00) mg/L B-Natriuretic Peptide 950 H ( - 100) pg/mL Total Protein (6.4-8.9) g/dL Albumin (3.2-5.2) g/dL Globulin (2-4) g/dL Albumin/Globulin Ratio (1-3) Lipase (11.0-82.0) U/L TSH (0.34-5.60) mcIU/mL Digoxin (0.8-2.0) ng/ml Salicylates (<30) mg/dL Acetaminophen mcg/mL Serum Alcohol (<10) mg/dL Result Diagrams: 04/07/17 17:30 04/07/17 17:30 Lab Statement: Any lab studies that have been ordered have been reviewed, and results considered in the medical decision making process. - Radiology CXR Xray Interpretation: Positive (See Comments) - IMPRESSION: Potential trace pleural effusions. Radiology Interpretation Completed By: Radiologist - EKG 18:20 EKG Rhythm: Sinus Tachycardia - @[address] Segment: Non-Specific - depressed ST segments in the inferior & lateral leads Ectopy: None - no peaked T-waves Re-Evaluation - Re-Evaluation First Eval Re-Evaluation Time: 18:54 - discussed imaging, lab results, and admission Course/Dx - Course Course Of Treatment: ADMIT HOSPITALIST GUARDED. - Diagnoses Provider Diagnoses: Digoxin toxicity, Hyperkalemia, Hypomagnesemia, Altered mental status, Abdominal pain - Physician Notifications Discussed Care Of Patient With: Roberto Boucher Time Discussed With Above Provider: 18:33 - agrees to admit the patient Instructed by Provider To: Admit As Inpatient - Critical Care Time Critical Care Time: 30-74 min Discharge - Discharge Plan Condition: Guarded Disposition: ADMITTED TO [facility] documentation as recorded by the Edwar cote Auryana accurately reflects the service I personally performed and the decisions made by me, Osbaldo Gifford MD.
[2017-04-08] LABS: BUN/Creatinine Ratio 14.1 (8-20); Calcium 8.7 mg/dL (8.6-10.3); EGFR Non-African American 40.4 (>60); Potassium 5.6 mmol/L (3.5-5.0)
[2017-04-08] MEDS: Morphine INJ* 2 MG/ML 1 ML SYRINGE IV PRN ×5 (01:24→21:18)
[2017-04-08] MEDS: NS 0.9% 1000 ML* 1,000 ML IV SCH ×3 (01:25→16:40)
[2017-04-08 02:25] LABS: Urine Bacteria 1+ (Absent); Urine Bilirubin Negative (Negative); Urine Glucose Negative (Negative); Urine Nitrite Negative (Negative)
[2017-04-08] MEDS: Insulin LISPRO* 1 UNITS UNIT SUBCUT SCH ×6 (02:31→22:13)
[2017-04-08 05:23] LABS: Hematocrit 32 % (35-47); Hemoglobin 10.5 g/dl (12.0-16.0); Mean Corpuscular HGB Conc 33 g/dl (31-36); Mean Corpuscular Hemoglobin 29 pg (27-31); Mean Corpuscular Volume 89 fL (80-97); Mean Platelet Volume 7 um3 (7.4-10.4); Red Cell Distribution Width 17 % (10.5-15); White Blood Count 4.2 10^3/ul (3.5-10.8)
[2017-04-08 05:34] LABS: BUN/Creatinine Ratio 14.3 (8-20); Calcium 8.5 mg/dL (8.6-10.3); EGFR African American 52.9 (>60); EGFR Non-African American 41.1 (>60); Potassium 5.7 mmol/L (3.5-5.0)
[2017-04-08] MEDS ORDERED: Sodium Polystyrene ORAL.SOL* 15 GM/60 ML BTL PO ONE (08:31)
[2017-04-08 08:40] LABS: Magnesium 1.4 mg/dL (1.9-2.7)
--- NOTE | 2017-04-08 09:02 | PN ---
Subjective Date of Service: 04/08/17 Interval History: No c/o. Denies pain. Family History: Findings - noncontributory Social History: Findings - 2 children (daughters), both are her SDM. Quit smoking 8 yrs ago. No alcohol abuse. Past Medical History: Findings - PR, AICD, atrial fib, DM. Appy, cholecystectomy. Objective Active Medications: Dextrose (D50w Syringe 50 Ml*) 12.5 gm IV PUSH .FOR FS < 60 - SS PRN PRN Reason: FS < 60 Sodium Chloride (Ns 0.9% 1000 Ml*) 1,000 mls @ 125 mls/hr IV PER RATE LOU Insulin Human Lispro (Humalog*) 0 units SUBCUT Q4HR LOU PRN Reason: Protocol Last Admin: 04/08/17 06:16 Dose: Not Given Morphine Sulfate (Morphine Inj (Syringe)*) 1 mg IV Q2H PRN PRN Reason: PAIN - MILD Vital Signs 04/07/17 04/07/17 04/07/17 19:00 19:30 19:32 Temperature Pulse Rate 122 117 117 Respiratory 22 16 18 Rate Blood Pressure 177/101 165/97 (mmHg) O2 Sat by Pulse 97 95 95 Oximetry 04/07/17 04/07/17 04/07/17 20:00 20:05 20:06 Temperature 98.7 F Pulse Rate 122 Respiratory 22 22 Rate Blood Pressure 176/88 176/88 170/93 (mmHg) O2 Sat by Pulse 95 Oximetry 04/07/17 04/07/17 04/07/17 20:10 20:15 20:30 Temperature Pulse Rate 121 120 119 Respiratory 20 18 18 Rate Blood Pressure 145/121 172/92 (mmHg) O2 Sat by Pulse 94 97 95 Oximetry 04/07/17 04/07/17 04/07/17 20:45 21:00 21:04 Temperature Pulse Rate 119 118 117 Respiratory 16 15 16 Rate Blood Pressure 173/93 165/90 (mmHg) O2 Sat by Pulse 95 95 94 Oximetry 04/07/17 04/07/17 04/07/17 21:15 21:30 22:00 Temperature Pulse Rate 119 119 119 Respiratory 17 16 17 Rate Blood Pressure 168/88 168/94 162/93 (mmHg) O2 Sat by Pulse 94 95 95 Oximetry 04/07/17 04/07/17 04/07/17 22:30 23:00 23:30 Temperature Pulse Rate 119 123 127 Respiratory 17 17 17 Rate Blood Pressure 171/97 169/96 170/97 (mmHg) O2 Sat by Pulse 95 94 94 Oximetry 04/07/17 04/08/17 04/08/17 23:42 00:00 00:30 Temperature 98.8 F Pulse Rate 127 131 Respiratory 18 19 Rate Blood Pressure 174/93 165/102 (mmHg) O2 Sat by Pulse 94 93 Oximetry 04/08/17 04/08/17 04/08/17 00:49 01:00 01:19 Temperature Pulse Rate 130 130 129 Respiratory 16 15 14 Rate Blood Pressure 136/92 158/104 129/95 (mmHg) O2 Sat by Pulse 93 93 92 Oximetry 04/08/17 04/08/17 04/08/17 01:24 01:30 01:54 Temperature Pulse Rate 130 Respiratory 15 15 14 Rate Blood Pressure 161/83 (mmHg) O2 Sat by Pulse 93 Oximetry 04/08/17 04/08/17 04/08/17 02:00 02:30 03:00 Temperature 99.6 F Pulse Rate 124 123 124 Respiratory 13 13 14 Rate Blood Pressure 151/88 159/87 157/85 (mmHg) O2 Sat by Pulse 92 93 93 Oximetry 04/08/17 04/08/17 04/08/17 04:00 05:00 06:00 Temperature 99.7 F 99.9 F 99.9 F Pulse Rate 126 131 136 Respiratory 15 15 17 Rate Blood Pressure 154/94 157/89 162/97 (mmHg) O2 Sat by Pulse 93 93 94 Oximetry 04/08/17 04/08/17 04/08/17 06:17 06:50 07:00 Temperature 99.9 F Pulse Rate 140 Respiratory 15 14 17 Rate Blood Pressure 158/110 (mmHg) O2 Sat by Pulse 94 Oximetry 04/08/17 07:11 Temperature 99.9 F Pulse Rate 135 Respiratory 14 Rate Blood Pressure 160/99 (mmHg) O2 Sat by Pulse 93 Oximetry Oxygen Devices in Use Now: None Appearance: Alert, supine on ICU bed. Neutral affect. Looks comfortable. Ears/Nose/Mouth/Throat: Clear Oropharnyx, Mucous Membranes Moist Respiratory: Symmetrical Chest Expansion and Respiratory Effort, Clear to Auscultation, Clear to Percussion Cardiovascular: NL Sounds; No Murmurs; No JVD, RRR, No Edema Abdominal: - - Soft, active BS, not tender. BLANCHE drain suprapubic area and sacral area. Extremities: No Clubbing, Cyanosis, - - 1+ total body edema Skin: No Nodules or Sclerosis, - - small ulcer R buttock from drain valve. Midline abd wound most of surgical incision, base clean, no surrounding erythema. Neurological: NL Sensation - She could not state her birthday or month, could state her age and the names of her two daughters. Result Diagrams: 04/08/17 05:10 04/08/17 05:10 Additional Lab and Data: Lab Results 04/07/17 04/07/17 04/07/17 Range/Units 17:30 17:30 17:30 WBC 3.9 (3.5-10.8) 10^3/ul RBC 3.83 L (4.0-5.4) 10^6/ul Hgb 11.1 L (12.0-16.0) g/dl Hct 34 L (35-47) % MCV 90 (80-97) fL MCH 29 (27-31) pg MCHC 32 (31-36) g/dl RDW 17 H (10.5-15) % Plt Count 194 (150-450) 10^3/ul MPV 8 (7.4-10.4) um3 Neut % (Auto) 67.3 (38-83) % Lymph % (Auto) 23.4 L (25-47) % Cassia % (Auto) 8.4 (1-9) % Eos % (Auto) 0.5 (0-6) % Baso % (Auto) 0.4 (0-2) % Absolute Neuts (auto) 2.6 (1.5-7.7) 10^3/ul Absolute Lymphs (auto) 0.9 L (1.0-4.8) 10^3/ul Absolute Monos (auto) 0.3 (0-0.8) 10^3/ul Absolute Eos (auto) 0 (0-0.6) 10^3/ul Absolute Basos (auto) 0 (0-0.2) 10^3/ul Absolute Nucleated RBC 0 10^3/ul Nucleated RBC % 0 INR (Anticoag Therapy) 1.35 H (0.89-1.11) APTT 44.8 H (26.0-36.3) seconds Sodium 130 L (133-145) mmol/L Potassium 6.5 H* (3.5-5.0) mmol/L Chloride 108 (101-111) mmol/L Carbon Dioxide 20 L (22-32) mmol/L Anion Gap 2 (2-11) mmol/L BUN 21 (6-24) mg/dL Creatinine 1.50 H (0.51-0.95) mg/dL Est GFR ( Amer) 46.0 (>60) Est GFR (Non-Af Amer) 35.8 (>60) BUN/Creatinine Ratio 14.0 (8-20) Glucose 132 H (70-100) mg/dL Lactic Acid (0.5-2.0) mmol/L Calcium 8.9 (8.6-10.3) mg/dL Magnesium 1.1 L (1.9-2.7) mg/dL Total Bilirubin 0.40 (0.2-1.0) mg/dL AST 17 (13-39) U/L ALT 6 L (7-52) U/L Alkaline Phosphatase 74 (34-104) U/L Ammonia (16-53) mol/L Total Creatine Kinase 16 (10-223) U/L CK-MB (CK-2) 4.3 (0.6-6.3) ng/mL Troponin I 0.03 (<0.04) ng/mL C-Reactive Protein 14.60 H (< 5.00) mg/L B-Natriuretic Peptide ( - 100) pg/mL Total Protein 5.7 L (6.4-8.9) g/dL Albumin 2.4 L (3.2-5.2) g/dL Globulin 3.3 (2-4) g/dL Albumin/Globulin Ratio 0.7 L (1-3) Lipase 15 (11.0-82.0) U/L TSH 2.33 (0.34-5.60) mcIU/mL Digoxin 2.6 H* (0.8-2.0) ng/ml Salicylates < 2.50 (<30) mg/dL Acetaminophen < 15 mcg/mL Serum Alcohol < 10 (<10) mg/dL 04/07/17 04/07/17 Range/Units 17:30 17:30 WBC (3.5-10.8) 10^3/ul RBC (4.0-5.4) 10^6/ul Hgb (12.0-16.0) g/dl Hct (35-47) % MCV (80-97) fL MCH (27-31) pg MCHC (31-36) g/dl RDW (10.5-15) % Plt Count (150-450) 10^3/ul MPV (7.4-10.4) um3 Neut % (Auto) (38-83) % Lymph % (Auto) (25-47) % Cassia % (Auto) (1-9) % Eos % (Auto) (0-6) % Baso % (Auto) (0-2) % Absolute Neuts (auto) (1.5-7.7) 10^3/ul Absolute Lymphs (auto) (1.0-4.8) 10^3/ul Absolute Monos (auto) (0-0.8) 10^3/ul Absolute Eos (auto) (0-0.6) 10^3/ul Absolute Basos (auto) (0-0.2) 10^3/ul Absolute Nucleated RBC 10^3/ul Nucleated RBC % INR (Anticoag Therapy) (0.89-1.11) APTT (26.0-36.3) seconds Sodium (133-145) mmol/L Potassium (3.5-5.0) mmol/L Chloride (101-111) mmol/L Carbon Dioxide (22-32) mmol/L Anion Gap (2-11) mmol/L BUN (6-24) mg/dL Creatinine (0.51-0.95) mg/dL Est GFR ( Amer) (>60) Est GFR (Non-Af Amer) (>60) BUN/Creatinine Ratio (8-20) Glucose (70-100) mg/dL Lactic Acid 1.2 (0.5-2.0) mmol/L Calcium (8.6-10.3) mg/dL Magnesium (1.9-2.7) mg/dL Total Bilirubin (0.2-1.0) mg/dL AST (13-39) U/L ALT (7-52) U/L Alkaline Phosphatase (34-104) U/L Ammonia 41 (16-53) mol/L Total Creatine Kinase (10-223) U/L CK-MB (CK-2) (0.6-6.3) ng/mL Troponin I (<0.04) ng/mL C-Reactive Protein (< 5.00) mg/L B-Natriuretic Peptide 950 H ( - 100) pg/mL Total Protein (6.4-8.9) g/dL Albumin (3.2-5.2) g/dL Globulin (2-4) g/dL Albumin/Globulin Ratio (1-3) Lipase (11.0-82.0) U/L TSH (0.34-5.60) mcIU/mL Digoxin (0.8-2.0) ng/ml Salicylates (<30) mg/dL Acetaminophen mcg/mL Serum Alcohol (<10) mg/dL Microbiology and Other Data: Microbiology 04/07/17 20:10 Nasal Screen MRSA (PCR)(RADHA) - Final Nasal Mrsa Negative Assess/Plan/Problems-Billing Assessment: - Patient Problems (1) Altered mental state Current Visit: Yes Status: Acute Code(s): R41.82 - ALTERED MENTAL STATUS, UNSPECIFIED SNOMED Code(s): 621580402 Comment: Likely due to digtoxicity, although not cleared yet. Digoxin Ab given 04/07. CT brain neg. Ammonia level 04/09. TSH wnl 04/07. (2) Digoxin toxicity Current Visit: Yes Status: Acute Code(s): T46.0X1A - POISONING BY CARDI- STIM GLYCOS/DRUG SIMLAR ACT, ACC, INIT SNOMED Code(s): 49515019 Comment: Digoxin Ab given. Tele given hx CAD, atrial fib. (3) Acute renal failure (ARF) Current Visit: No Status: Acute Priority: High Comment: IVF. Oral Kayexalate 30 gm given 04/07, 15 gm ordered 04/08, furosemide 40 mg IV 04/07. BMP 04/09. (4) CAD (coronary artery disease) Current Visit: Yes Status: Acute Code(s): I25.10 - ATHSCL HEART DISEASE OF [place] CORONARY ARTERY W/O ANG PCTRS SNOMED Code(s): 16998994 Comment: Resume ASA, BB, statin as appropriate. (5) Abdominal tenderness Current Visit: Yes Status: Acute Code(s): R10.819 - ABDOMINAL TENDERNESS, UNSPECIFIED SITE SNOMED Code(s): 00759261 Comment: CT abd/pelvis pending. Dr. Carrillo gentile for soncult if needed. (6) Diabetes Current Visit: Yes Status: Acute Code(s): E11.9 - TYPE 2 DIABETES MELLITUS WITHOUT COMPLICATIONS SNOMED Code(s): 87761723 Comment: Lispro SS q 4 hr. Hold metformin. (7) Hypomagnesemia Current Visit: Yes Status: Acute Code(s): E83.42 - HYPOMAGNESEMIA SNOMED Code(s): 180944238 Comment: 2 gm mag IV given in ED. Repeat addon 04/08, repeat 04/09. (8) Decubitus ulcer Current Visit: Yes Status: Acute Code(s): L89.90 - PRESSURE ULCER OF UNSPECIFIED SITE, UNSPECIFIED STAGE SNOMED Code(s): 402395329 Comment: R buttock due to drain valve. Dr. Jaramillo will assess need for continued BLANCHE drainage.
--- NOTE | 2017-04-08 09:12 | PN ---
Progress Note - Progress Note Date of Service: 04/08/17 Note: Time spent on patient care 45 minutes.
[2017-04-08] MEDS: Metoprolol Tartrate TAB* 100 MG TAB PO SCH ×2 (10:01→21:06)
[2017-04-08 11:33] LABS: Hematocrit 35 % (35-47); Hemoglobin 11.1 g/dl (12.0-16.0); Mean Corpuscular HGB Conc 32 g/dl (31-36); Mean Corpuscular Hemoglobin 29 pg (27-31); Mean Corpuscular Volume 90 fL (80-97); Mean Platelet Volume 8 um3 (7.4-10.4); Red Blood Count 3.86 10^6/ul (4.0-5.4); Red Cell Distribution Width 17 % (10.5-15); White Blood Count 3.9 10^3/ul (3.5-10.8)
[2017-04-08 11:43] LABS: EGFR African American 48.6 (>60); EGFR Non-African American 37.8 (>60)
[2017-04-08 11:44] LABS: Add Diff/Slide Review? Manual Diff Added; Comments Flag Yes
[2017-04-08 12:42] LABS: Neutrophil % 76 % (38-83); Reactive Lymph % 1 % (0-6)
[2017-04-08 13:44] LABS: Add Path Review? YES; RBC Morphology Normal (Normal)
[2017-04-08] MEDS: Heparin VIAL(*) 5000 UNITS/ML VIAL (FIVE THOUSAND) SUBCUT SCH ×2 (14:44→21:06)
--- NOTE | 2017-04-08 17:30 | PN ---
Progress Note - Progress Note Date of Service: 04/08/17 Note: Surgery Progress: S: recent hx reviewed. We were again asked to assess her midline wound and review ongoing indications for her drains. Her CT from 04/07 was reviewed w/ Dr. Jaramillo. There has been minimal output from each of the drains from both admissions. O: Vital Signs - 8 hr 04/08/17 04/08/17 04/08/17 10:00 11:00 12:00 Temperature Pulse Rate 121 135 133 Respiratory 13 15 15 Rate Blood Pressure 172/97 173/99 172/113 (mmHg) O2 Sat by Pulse 93 95 95 Oximetry 04/08/17 04/08/17 04/08/17 12:02 13:00 13:11 Temperature Pulse Rate 128 Respiratory 16 16 15 Rate Blood Pressure 170/104 157/96 (mmHg) O2 Sat by Pulse 94 Oximetry 04/08/17 04/08/17 04/08/17 13:16 13:25 14:00 Temperature Pulse Rate Respiratory 17 20 18 Rate Blood Pressure 179/103 (mmHg) O2 Sat by Pulse Oximetry 04/08/17 04/08/17 04/08/17 14:25 15:26 16:00 Temperature 98.0 F Pulse Rate 125 Respiratory 18 18 14 Rate Blood Pressure 148/88 (mmHg) O2 Sat by Pulse 97 Oximetry Intake and Output Last 24 Hours 04/06/17 04/07/17 04/08/17 04/09/17 06:59 06:59 06:59 06:59 Intake Total 618 0 Output Total 255 0 Balance 363 0 Weight 130 lb 1.164 oz Intake: IV Fluids 618 NS (0.9%) 618 Oral 0 Output: BLANCHE #1 5 BLANCHE #2 0 Urine 0 Be 250 PE: confused and teary Abd: somewhat distended and tympanitic; difficult to tell if she is tender to palp, though she responded with pain to removal of her anterior dressings from the midline wound and the lower pigtail drain. There has been minimal drainage from the two drains. The midline wound is clean w/ granulating base, measuring approximately 10-12 cm in length and up to 2.5 cm in width with less than 1 cm depth and no undermining or tracking. The exception to this is the most inferior portion of the wound where there is suture material present as well as some material that appears to be a combination of polypropylene with some other material (like PTFE). This is approximately 1/4" in width and is adherent to the wound. It does not appear to be posing an immediate problem to the wound but may need to be addressed in the future to accomplish complete wound closure. The anterior drain site is unremarkable. The posterior site is notable for a superficial ulceration w/ intact eschar which does not appear infected. CT 04/07/17: INDICATION: Abdominal pain and bloating. Not eating for multiple days. Increased confusion. Previous colon surgery with resections. History of colon carcinoma. COMPARISON: April 01, 2017 CT. TECHNIQUE: Multidetector CT images were obtained from the lung bases to the ischial tuberosities. Oral contrast administered. Assessment of the visceral limited without IV contrast. REPORT: Small dependent pleural effusions with proportional compressive atelectasis. RIGHT atrial and RIGHT ventricular level pacemaker leads. Mild cardiomegaly. Negative for significant pericardial effusion. Unremarkable unenhanced liver. Post cholecystectomy. Unchanged magnitude of dilatation of the common bile duct measuring 1.2 cm diameter which may be a normal finding post cholecystectomy. Advanced atrophy of the pancreas. Unremarkable spleen. Small splenule anterior to the dominant spleen. Postsurgical change of partial colectomy with suggestion of a small bowel sigmoid bowel anastomosis at the RIGHT lower quadrant. Enteric contrast reaches the ileum. Dilated small bowel loops in the upper abdomen with air-fluid levels similar to the prior exam is most suspicious for ileus. Negative for ascites or free air. No peritoneal abscess collection evident. Anterior and posterior RIGHT para midline percutaneous drainage catheters remain in place without suggestion of significant residual loculated fluid collections. A/P: s/p partial colectomy w/ two percutaneous drains still in place, and an open midline abd wound w/ question of the presence of foreign material. After discussion w/ Dr. Jaramillo, both of the drains were removed w/o incident and a [place] [facility] [place] [facility] [place]/ currently prescribed care for the midline wound (saline-moist dressing w/ occlusive dressing (Tegaderm or other). She will need add'l f/u as an outpatient.
[2017-04-08 20:23] LABS: BUN/Creatinine Ratio 15.1 (8-20); Calcium 8.5 mg/dL (8.6-10.3); EGFR African American 45.3 (>60); EGFR Non-African American 35.2 (>60); Potassium 5.7 mmol/L (3.5-5.0)
[2017-04-09] MEDS: NS 0.9% 1000 ML* 1,000 ML IV SCH ×3 (01:14→16:37)
[2017-04-09] MEDS: Insulin LISPRO* 1 UNITS UNIT SUBCUT SCH ×6 (02:05→22:40)
[2017-04-09] MEDS: Heparin VIAL(*) 5000 UNITS/ML VIAL (FIVE THOUSAND) SUBCUT SCH ×3 (05:20→21:40)
[2017-04-09] MEDS: Aspirin Low Dose CHEW TAB* 81 MG PO SCH (09:25)
[2017-04-09] MEDS: Metoprolol Tartrate TAB* 100 MG TAB PO SCH ×2 (09:25→21:43)
[2017-04-09] MEDS: Morphine INJ* 2 MG/ML 1 ML SYRINGE IV PRN ×3 (09:25→21:41)
--- NOTE | 2017-04-09 09:54 | PN ---
Subjective Date of Service: 04/09/17 Interval History: Pt states she had a BM this AM. She denies any significant abdominal pain. She denies any SOB. She is upset and states "it is not fair." Nursing notes that the patient is more conversant today than yesterday and that she is able to express herself more. Family History: Unchanged from Admission Social History: Unchanged from Admission Past Medical History: Unchanged from Admission Objective Active Medications: Aspirin (Aspirin Low Dose Tab*) 81 mg PO DAILY [facility] Last Admin: 04/09/17 09:25 Dose: 81 mg Dextrose (D50w Syringe 50 Ml*) 12.5 gm IV PUSH .FOR FS < 60 - SS PRN PRN Reason: FS < 60 Heparin Sodium (Porcine) (Heparin Vial(*)) 5,000 units SUBCUT Q8HR [facility] Last Admin: 04/09/17 05:20 Dose: 5,000 units Sodium Chloride (Ns 0.9% 1000 Ml*) 1,000 mls @ 125 mls/hr IV PER RATE [facility] Last Admin: 04/09/17 09:28 Dose: 125 mls/hr Insulin Human Lispro (Humalog*) 0 units SUBCUT Q4HR [facility] PRN Reason: Protocol Last Admin: 04/09/17 09:15 Dose: Not Given Metoprolol Tartrate (Lopressor Tab*) 100 mg PO BID [facility] Last Admin: 04/09/17 09:25 Dose: 100 mg Morphine Sulfate (Morphine Inj (Syringe)*) 1 mg IV Q2H PRN PRN Reason: PAIN - MILD Last Admin: 04/09/17 09:25 Dose: 1 mg Vital Signs 04/08/17 04/08/17 04/08/17 10:00 11:00 12:00 Temperature Pulse Rate 121 135 133 Respiratory 13 15 15 Rate Blood Pressure 172/97 173/99 172/113 (mmHg) O2 Sat by Pulse 93 95 95 Oximetry 04/08/17 04/08/17 04/08/17 12:02 13:00 13:11 Temperature Pulse Rate 128 Respiratory 16 16 15 Rate Blood Pressure 170/104 157/96 (mmHg) O2 Sat by Pulse 94 Oximetry 04/08/17 04/08/17 04/08/17 13:16 13:25 14:00 Temperature Pulse Rate Respiratory 17 20 18 Rate Blood Pressure 179/103 (mmHg) O2 Sat by Pulse Oximetry 04/08/17 04/08/17 04/08/17 14:25 15:26 16:00 Temperature 98.0 F Pulse Rate 125 Respiratory 18 18 14 Rate Blood Pressure 148/88 (mmHg) O2 Sat by Pulse 97 Oximetry 04/08/17 04/08/17 04/08/17 16:13 17:07 18:00 Temperature Pulse Rate Respiratory 11 20 15 Rate Blood Pressure (mmHg) O2 Sat by Pulse Oximetry 04/08/17 04/08/17 04/08/17 18:07 19:16 19:40 Temperature 97.9 F 98.1 F Pulse Rate 114 132 Respiratory 16 19 20 Rate Blood Pressure 159/97 166/100 (mmHg) O2 Sat by Pulse 97 96 Oximetry 04/08/17 04/08/17 04/08/17 20:00 21:18 22:00 Temperature Pulse Rate Respiratory 18 17 11 Rate Blood Pressure (mmHg) O2 Sat by Pulse Oximetry 04/08/17 04/09/17 04/09/17 22:18 00:00 00:05 Temperature 98.1 F Pulse Rate 96 Respiratory 17 0 16 Rate Blood Pressure 143/88 (mmHg) O2 Sat by Pulse 97 Oximetry 04/09/17 04/09/17 04/09/17 02:00 03:49 04:00 Temperature 97.8 F Pulse Rate 98 Respiratory 12 20 13 Rate Blood Pressure 150/85 (mmHg) O2 Sat by Pulse 98 Oximetry 04/09/17 04/09/17 04/09/17 06:00 07:25 08:00 Temperature 97.7 F Pulse Rate 107 Respiratory 0 18 20 Rate Blood Pressure 164/87 (mmHg) O2 Sat by Pulse 98 Oximetry 04/09/17 09:25 Temperature Pulse Rate Respiratory 20 Rate Blood Pressure (mmHg) O2 Sat by Pulse Oximetry Oxygen Devices in Use Now: None Appearance: Middle aged female sitting up in bed, NAD Eyes: No Scleral Icterus Ears/Nose/Mouth/Throat: Mucous Membranes Moist Respiratory: Symmetrical Chest Expansion and Respiratory Effort, Clear to Auscultation - diminished breath sounds at the bases Cardiovascular: NL Sounds; No Murmurs; No JVD, - - tachycardic but regular, diffuse anasarca Abdominal: - - BS+ soft, mildly tender to palpation, mildly distended. Midline vertical incision inspected and reveals healthy granulation tissue at the base without signs of infection. Drain sites in RLQ and R hip area show no signs of infection. There is a stage II decubitus ulcer to the R flank where the drain tubing was pressing is noted. It is approximately 1.5cm in length and at most 1cm in width, yellow slough noted, no signs of infection. Extremities: No Clubbing, Cyanosis Skin: No Nodules or Sclerosis Neurological: - - confused, tearful talking about going to rehab Result Diagrams: 04/08/17 09:45 04/08/17 20:02 Additional Lab and Data: Lab Results 04/07/17 04/07/17 04/07/17 Range/Units 17:30 17:30 17:30 WBC 3.9 (3.5-10.8) 10^3/ul RBC 3.83 L (4.0-5.4) 10^6/ul Hgb 11.1 L (12.0-16.0) g/dl Hct 34 L (35-47) % MCV 90 (80-97) fL MCH 29 (27-31) pg MCHC 32 (31-36) g/dl RDW 17 H (10.5-15) % Plt Count 194 (150-450) 10^3/ul MPV 8 (7.4-10.4) um3 Neut % (Auto) 67.3 (38-83) % Lymph % (Auto) 23.4 L (25-47) % Glades % (Auto) 8.4 (1-9) % Eos % (Auto) 0.5 (0-6) % Baso % (Auto) 0.4 (0-2) % Absolute Neuts (auto) 2.6 (1.5-7.7) 10^3/ul Absolute Lymphs (auto) 0.9 L (1.0-4.8) 10^3/ul Absolute Monos (auto) 0.3 (0-0.8) 10^3/ul Absolute Eos (auto) 0 (0-0.6) 10^3/ul Absolute Basos (auto) 0 (0-0.2) 10^3/ul Absolute Nucleated RBC 0 10^3/ul Nucleated RBC % 0 INR (Anticoag Therapy) 1.35 H (0.89-1.11) APTT 44.8 H (26.0-36.3) seconds Sodium 130 L (133-145) mmol/L Potassium 6.5 H* (3.5-5.0) mmol/L Chloride 108 (101-111) mmol/L Carbon Dioxide 20 L (22-32) mmol/L Anion Gap 2 (2-11) mmol/L BUN 21 (6-24) mg/dL Creatinine 1.50 H (0.51-0.95) mg/dL Est GFR ( Amer) 46.0 (>60) Est GFR (Non-Af Amer) 35.8 (>60) BUN/Creatinine Ratio 14.0 (8-20) Glucose 132 H (70-100) mg/dL Lactic Acid (0.5-2.0) mmol/L Calcium 8.9 (8.6-10.3) mg/dL Magnesium 1.1 L (1.9-2.7) mg/dL Total Bilirubin 0.40 (0.2-1.0) mg/dL AST 17 (13-39) U/L ALT 6 L (7-52) U/L Alkaline Phosphatase 74 (34-104) U/L Ammonia (16-53) mol/L Total Creatine Kinase 16 (10-223) U/L CK-MB (CK-2) 4.3 (0.6-6.3) ng/mL Troponin I 0.03 (<0.04) ng/mL C-Reactive Protein 14.60 H (< 5.00) mg/L B-Natriuretic Peptide ( - 100) pg/mL Total Protein 5.7 L (6.4-8.9) g/dL Albumin 2.4 L (3.2-5.2) g/dL Globulin 3.3 (2-4) g/dL Albumin/Globulin Ratio 0.7 L (1-3) Lipase 15 (11.0-82.0) U/L TSH 2.33 (0.34-5.60) mcIU/mL Digoxin 2.6 H* (0.8-2.0) ng/ml Salicylates < 2.50 (<30) mg/dL Acetaminophen < 15 mcg/mL Serum Alcohol < 10 (<10) mg/dL 04/07/17 04/07/17 Range/Units 17:30 17:30 WBC (3.5-10.8) 10^3/ul RBC (4.0-5.4) 10^6/ul Hgb (12.0-16.0) g/dl Hct (35-47) % MCV (80-97) fL MCH (27-31) pg MCHC (31-36) g/dl RDW (10.5-15) % Plt Count (150-450) 10^3/ul MPV (7.4-10.4) um3 Neut % (Auto) (38-83) % Lymph % (Auto) (25-47) % Glades % (Auto) (1-9) % Eos % (Auto) (0-6) % Baso % (Auto) (0-2) % Absolute Neuts (auto) (1.5-7.7) 10^3/ul Absolute Lymphs (auto) (1.0-4.8) 10^3/ul Absolute Monos (auto) (0-0.8) 10^3/ul Absolute Eos (auto) (0-0.6) 10^3/ul Absolute Basos (auto) (0-0.2) 10^3/ul Absolute Nucleated RBC 10^3/ul Nucleated RBC % INR (Anticoag Therapy) (0.89-1.11) APTT (26.0-36.3) seconds Sodium (133-145) mmol/L Potassium (3.5-5.0) mmol/L Chloride (101-111) mmol/L Carbon Dioxide (22-32) mmol/L Anion Gap (2-11) mmol/L BUN (6-24) mg/dL Creatinine (0.51-0.95) mg/dL Est GFR ( Amer) (>60) Est GFR (Non-Af Amer) (>60) BUN/Creatinine Ratio (8-20) Glucose (70-100) mg/dL Lactic Acid 1.2 (0.5-2.0) mmol/L Calcium (8.6-10.3) mg/dL Magnesium (1.9-2.7) mg/dL Total Bilirubin (0.2-1.0) mg/dL AST (13-39) U/L ALT (7-52) U/L Alkaline Phosphatase (34-104) U/L Ammonia 41 (16-53) mol/L Total Creatine Kinase (10-223) U/L CK-MB (CK-2) (0.6-6.3) ng/mL Troponin I (<0.04) ng/mL C-Reactive Protein (< 5.00) mg/L B-Natriuretic Peptide 950 H ( - 100) pg/mL Total Protein (6.4-8.9) g/dL Albumin (3.2-5.2) g/dL Globulin (2-4) g/dL Albumin/Globulin Ratio (1-3) Lipase (11.0-82.0) U/L TSH (0.34-5.60) mcIU/mL Digoxin (0.8-2.0) ng/ml Salicylates (<30) mg/dL Acetaminophen mcg/mL Serum Alcohol (<10) mg/dL Microbiology and Other Data: Microbiology 04/07/17 20:10 Nasal Screen MRSA (PCR)([facility]) - Final Nasal Mrsa Negative Assess/Plan/Problems-Billing Ms Evangelista is a 57 yo F who has had a complicated post op course following partial colectomy for colon cancer who was [place] [facility] [place] time this month now with altered mental status and was found to have digoxin toxicity. - Patient Problems (1) Altered mental state Current Visit: Yes Status: Acute Code(s): R41.82 - ALTERED MENTAL STATUS, UNSPECIFIED SNOMED Code(s): 249887894 Comment: The patient is still confused. On admission it was felt that the confusion was secondary to dig toxicity. Ammonia level pending. Will continue to follow her mental status which is by report from nursing improving. (2) Digoxin toxicity Current Visit: Yes Status: Acute Code(s): T46.0X1A - POISONING BY CARDI- STIM GLYCOS/DRUG SIMLAR ACT, ACC, INIT SNOMED Code(s): 98105479 Comment: Pt was dig toxic on admission. Repeat digoxin level has not been obtained post digibind administration. Will check digoxin level today. (3) Acute renal failure (ARF) Current Visit: Yes Status: Acute Priority: High Comment: The patient's baseline creatinine is not clear though during her last hospitalization her creatinine did normalize. Her creatinine has not changed significantly during this admission. Will continue IVF but be mindful of the developing anasarca. Repeat BMP pending for today. The patient has also had hyperkalemia treated with lactulose. She had a loose BM this AM. Await new K level. (4) Open abdominal wall wound Current Visit: Yes Status: Acute Priority: High Code(s): S31.109A - UNSP OPN WND ABD WALL, UNSP Q W/O PENET PERIT CAV, INIT SNOMED Code(s): 318846878 Comment: Continue wet to dry dressing changes. No signs of infection. (5) Decubitus ulcer Current Visit: Yes Status: Acute Code(s): L89.90 - PRESSURE ULCER OF UNSPECIFIED SITE, UNSPECIFIED STAGE SNOMED Code(s): 606516234 Comment: Stage II decubitus is noted on exam. The drain has been removed so I expect she will have improvement in the wound. (6) Colon cancer Current Visit: Yes Status: Acute Comment: S/P partial colectomy with complicated post op course including SBO with ? anastamotic leak requiring repeat trip to OR for laparotomy and washout. Pt had 2 BLANCHE drains present on admission-removed 04/08/17. (7) CAD (coronary artery disease) Current Visit: Yes Status: Acute Code(s): I25.10 - ATHSCL HEART DISEASE OF [place] CORONARY ARTERY W/O ANG PCTRS SNOMED Code(s): 74420454 Comment: Continue ASA and metoprolol. No c/o chest pain at this time. (8) DVT prophylaxis Current Visit: Yes Status: Acute Code(s): EDR7646 - SNOMED Code(s): 143056763 Comment: SQ heparin (9) Full code status Current Visit: Yes Status: Acute Code(s): Z78.9 - OTHER SPECIFIED HEALTH STATUS SNOMED Code(s): 735255927
[2017-04-09 10:53] LABS: Hematocrit 39 % (35-47); Hemoglobin 12.3 g/dl (12.0-16.0); Mean Corpuscular HGB Conc 32 g/dl (31-36); Mean Corpuscular Hemoglobin 29 pg (27-31); Mean Corpuscular Volume 90 fL (80-97); Mean Platelet Volume 8 um3 (7.4-10.4); Red Blood Count 4.27 10^6/ul (4.0-5.4); Red Cell Distribution Width 18 % (10.5-15)
[2017-04-09 10:54] LABS: Comments Flag Yes
[2017-04-09 10:55] LABS: Add Diff/Slide Review? Slide Review Added
[2017-04-09 11:28] LABS: BUN/Creatinine Ratio 16.8 (8-20); Calcium 8.1 mg/dL (8.6-10.3); EGFR African American 48.6 (>60); EGFR Non-African American 37.8 (>60); Magnesium 1.2 mg/dL (1.9-2.7); Potassium 5.3 mmol/L (3.5-5.0)
[2017-04-09] MEDS ORDERED: Magnesium Sulf 4 GM/100 ML IV* 4,000 MG/100 ML BAG IVPB ONE (13:25)
[2017-04-09] MEDS ORDERED: NS 0.9% 1000 ML* 1,000 ML IV ONE (14:31)
[2017-04-10] MEDS: Insulin LISPRO* 1 UNITS UNIT SUBCUT SCH ×6 (02:39→22:13)
[2017-04-10] MEDS ORDERED: Furosemide IV* 10 MG/ML 2 ML VIAL (20 MG) IV ONE (03:00)
[2017-04-10] MEDS: NS 0.9% 1000 ML* 1,000 ML IV SCH (03:52)
[2017-04-10] MEDS: Heparin VIAL(*) 5000 UNITS/ML VIAL (FIVE THOUSAND) SUBCUT SCH ×3 (06:31→22:16)
[2017-04-10] MEDS: Morphine INJ* 2 MG/ML 1 ML SYRINGE IV PRN ×5 (06:32→22:50)
[2017-04-10] MEDS: Metoprolol Tartrate TAB* 100 MG TAB PO SCH ×3 (08:14→22:09)
[2017-04-10] MEDS: Aspirin Low Dose CHEW TAB* 81 MG PO SCH (08:14)
[2017-04-10] MEDS ORDERED: Albumin Human 25%* 100 ML in PREMIX* 0 ML IV ONE (08:30)
--- NOTE | 2017-04-10 08:57 | PN ---
Subjective Date of Service: 04/10/17 Interval History: Pt is feeling ok but she appears short of breath. She denies SOB. She denies any pain. She does c/o increased edema. Family History: Unchanged from Admission Social History: Unchanged from Admission Past Medical History: Unchanged from Admission Objective Active Medications: Aspirin (Aspirin Low Dose Tab*) 81 mg PO DAILY [facility] Last Admin: 04/10/17 08:14 Dose: 81 mg Dextrose (D50w Syringe 50 Ml*) 12.5 gm IV PUSH .FOR FS < 60 - SS PRN PRN Reason: FS < 60 Furosemide (Lasix Iv*) 40 mg IV ONCE ONE Stop: 04/10/17 10:01 Heparin Sodium (Porcine) (Heparin Vial(*)) 5,000 units SUBCUT Q8HR [facility] Last Admin: 04/10/17 06:31 Dose: 5,000 units Albumin Human 100 ml/ IV (Solution) 100 mls @ 2 mls/min IV ONCE ONE Stop: 04/10/17 09:19 Insulin Human Lispro (Humalog*) 0 units SUBCUT Q4HR [facility] PRN Reason: Protocol Last Admin: 04/10/17 06:59 Dose: Not Given Metoprolol Tartrate (Lopressor Tab*) 100 mg PO BID [facility] Last Admin: 04/10/17 08:14 Dose: 100 mg Morphine Sulfate (Morphine Inj (Syringe)*) 2 mg IV Q2H PRN PRN Reason: PAIN - MILD Last Admin: 04/10/17 06:32 Dose: 2 mg Vital Signs 04/09/17 04/09/17 04/09/17 09:25 10:00 10:25 Temperature Pulse Rate Respiratory 20 1 18 Rate Blood Pressure (mmHg) O2 Sat by Pulse Oximetry 04/09/17 04/09/17 04/09/17 11:44 12:00 13:13 Temperature 97.5 F Pulse Rate 92 Respiratory 18 25 18 Rate Blood Pressure 147/88 (mmHg) O2 Sat by Pulse Oximetry 04/09/17 04/09/17 04/09/17 14:00 15:19 15:30 Temperature 97.9 F Pulse Rate 97 Respiratory 14 20 13 Rate Blood Pressure 174/86 (mmHg) O2 Sat by Pulse 98 Oximetry 04/09/17 04/09/17 04/09/17 16:00 18:00 18:37 Temperature Pulse Rate Respiratory 18 19 18 Rate Blood Pressure (mmHg) O2 Sat by Pulse Oximetry 04/09/17 04/09/17 04/09/17 19:37 20:00 20:06 Temperature 97.5 F Pulse Rate 128 Respiratory 20 23 18 Rate Blood Pressure 175/94 (mmHg) O2 Sat by Pulse 100 Oximetry 04/09/17 04/09/17 04/09/17 21:41 22:00 22:41 Temperature Pulse Rate Respiratory 21 25 18 Rate Blood Pressure (mmHg) O2 Sat by Pulse Oximetry 04/09/17 04/10/17 04/10/17 23:15 00:00 02:00 Temperature 97.9 F Pulse Rate 116 Respiratory 24 19 13 Rate Blood Pressure 148/92 (mmHg) O2 Sat by Pulse 91 Oximetry 04/10/17 04/10/17 04/10/17 03:44 04:00 06:32 Temperature 98.2 F Pulse Rate 113 Respiratory 20 19 22 Rate Blood Pressure 145/85 (mmHg) O2 Sat by Pulse 97 Oximetry 04/10/17 07:32 Temperature Pulse Rate Respiratory 18 Rate Blood Pressure (mmHg) O2 Sat by Pulse Oximetry Oxygen Devices in Use Now: None Appearance: Middle aged ill appearing female sitting up in bed, appears diffusely edematous, slightly tachypnic, NAD Eyes: No Scleral Icterus Ears/Nose/Mouth/Throat: Mucous Membranes Moist Respiratory: Symmetrical Chest Expansion and Respiratory Effort, - - diffuse crackles Cardiovascular: NL Sounds; No Murmurs; No JVD, - - tachycardic but regular, diffuse anasarca worse today than yesterday Abdominal: - - BS+ soft, NT, mildly distended Extremities: No Clubbing, Cyanosis Skin: No Nodules or Sclerosis, - - abdominal wound, drain sites and decubitus not inspected today Neurological: - - alert, can not tell me where she is (place or town) or her birthday Result Diagrams: 04/09/17 10:23 04/09/17 10:23 Additional Lab and Data: Lab Results 04/07/17 04/07/17 04/07/17 Range/Units 17:30 17:30 17:30 WBC 3.9 (3.5-10.8) 10^3/ul RBC 3.83 L (4.0-5.4) 10^6/ul Hgb 11.1 L (12.0-16.0) g/dl Hct 34 L (35-47) % MCV 90 (80-97) fL MCH 29 (27-31) pg MCHC 32 (31-36) g/dl RDW 17 H (10.5-15) % Plt Count 194 (150-450) 10^3/ul MPV 8 (7.4-10.4) um3 Neut % (Auto) 67.3 (38-83) % Lymph % (Auto) 23.4 L (25-47) % Sutton % (Auto) 8.4 (1-9) % Eos % (Auto) 0.5 (0-6) % Baso % (Auto) 0.4 (0-2) % Absolute Neuts (auto) 2.6 (1.5-7.7) 10^3/ul Absolute Lymphs (auto) 0.9 L (1.0-4.8) 10^3/ul Absolute Monos (auto) 0.3 (0-0.8) 10^3/ul Absolute Eos (auto) 0 (0-0.6) 10^3/ul Absolute Basos (auto) 0 (0-0.2) 10^3/ul Absolute Nucleated RBC 0 10^3/ul Nucleated RBC % 0 INR (Anticoag Therapy) 1.35 H (0.89-1.11) APTT 44.8 H (26.0-36.3) seconds Sodium 130 L (133-145) mmol/L Potassium 6.5 H* (3.5-5.0) mmol/L Chloride 108 (101-111) mmol/L Carbon Dioxide 20 L (22-32) mmol/L Anion Gap 2 (2-11) mmol/L BUN 21 (6-24) mg/dL Creatinine 1.50 H (0.51-0.95) mg/dL Est GFR ( Amer) 46.0 (>60) Est GFR (Non-Af Amer) 35.8 (>60) BUN/Creatinine Ratio 14.0 (8-20) Glucose 132 H (70-100) mg/dL Lactic Acid (0.5-2.0) mmol/L Calcium 8.9 (8.6-10.3) mg/dL Magnesium 1.1 L (1.9-2.7) mg/dL Total Bilirubin 0.40 (0.2-1.0) mg/dL AST 17 (13-39) U/L ALT 6 L (7-52) U/L Alkaline Phosphatase 74 (34-104) U/L Ammonia (16-53) mol/L Total Creatine Kinase 16 (10-223) U/L CK-MB (CK-2) 4.3 (0.6-6.3) ng/mL Troponin I 0.03 (<0.04) ng/mL C-Reactive Protein 14.60 H (< 5.00) mg/L B-Natriuretic Peptide ( - 100) pg/mL Total Protein 5.7 L (6.4-8.9) g/dL Albumin 2.4 L (3.2-5.2) g/dL Globulin 3.3 (2-4) g/dL Albumin/Globulin Ratio 0.7 L (1-3) Lipase 15 (11.0-82.0) U/L TSH 2.33 (0.34-5.60) mcIU/mL Digoxin 2.6 H* (0.8-2.0) ng/ml Salicylates < 2.50 (<30) mg/dL Acetaminophen < 15 mcg/mL Serum Alcohol < 10 (<10) mg/dL 04/07/17 04/07/17 Range/Units 17:30 17:30 WBC (3.5-10.8) 10^3/ul RBC (4.0-5.4) 10^6/ul Hgb (12.0-16.0) g/dl Hct (35-47) % MCV (80-97) fL MCH (27-31) pg MCHC (31-36) g/dl RDW (10.5-15) % Plt Count (150-450) 10^3/ul MPV (7.4-10.4) um3 Neut % (Auto) (38-83) % Lymph % (Auto) (25-47) % Sutton % (Auto) (1-9) % Eos % (Auto) (0-6) % Baso % (Auto) (0-2) % Absolute Neuts (auto) (1.5-7.7) 10^3/ul Absolute Lymphs (auto) (1.0-4.8) 10^3/ul Absolute Monos (auto) (0-0.8) 10^3/ul Absolute Eos (auto) (0-0.6) 10^3/ul Absolute Basos (auto) (0-0.2) 10^3/ul Absolute Nucleated RBC 10^3/ul Nucleated RBC % INR (Anticoag Therapy) (0.89-1.11) APTT (26.0-36.3) seconds Sodium (133-145) mmol/L Potassium (3.5-5.0) mmol/L Chloride (101-111) mmol/L Carbon Dioxide (22-32) mmol/L Anion Gap (2-11) mmol/L BUN (6-24) mg/dL Creatinine (0.51-0.95) mg/dL Est GFR ( Amer) (>60) Est GFR (Non-Af Amer) (>60) BUN/Creatinine Ratio (8-20) Glucose (70-100) mg/dL Lactic Acid 1.2 (0.5-2.0) mmol/L Calcium (8.6-10.3) mg/dL Magnesium (1.9-2.7) mg/dL Total Bilirubin (0.2-1.0) mg/dL AST (13-39) U/L ALT (7-52) U/L Alkaline Phosphatase (34-104) U/L Ammonia 41 (16-53) mol/L Total Creatine Kinase (10-223) U/L CK-MB (CK-2) (0.6-6.3) ng/mL Troponin I (<0.04) ng/mL C-Reactive Protein (< 5.00) mg/L B-Natriuretic Peptide 950 H ( - 100) pg/mL Total Protein (6.4-8.9) g/dL Albumin (3.2-5.2) g/dL Globulin (2-4) g/dL Albumin/Globulin Ratio (1-3) Lipase (11.0-82.0) U/L TSH (0.34-5.60) mcIU/mL Digoxin (0.8-2.0) ng/ml Salicylates (<30) mg/dL Acetaminophen mcg/mL Serum Alcohol (<10) mg/dL Microbiology and Other Data: Microbiology 04/07/17 20:10 Nasal Screen MRSA (PCR)([facility]) - Final Nasal Mrsa Negative Assess/Plan/Problems-Billing Ms Jean Carlos is a 57 yo F who has had a complicated post op course following partial colectomy for colon cancer who was admitted to [facility] for the second time this month now with altered mental status and was found to have digoxin toxicity. - Patient Problems (1) Altered mental state Current Visit: Yes Status: Acute Code(s): R41.82 - ALTERED MENTAL STATUS, UNSPECIFIED SNOMED Code(s): 296054506 Comment: Ammonia level yesterday was mildly elevated but I am not sure it is enough to cause her level of confusion. It seems unlikely that her persistent confusion now is related to digoxin toxicity especially after receiving digibind. Will ask for neurology consultation. (2) Digoxin toxicity Current Visit: Yes Status: Acute Code(s): T46.0X1A - POISONING BY CARDI- STIM GLYCOS/DRUG SIMLAR ACT, ACC, INIT SNOMED Code(s): 35902593 Comment: Pt was dig toxic on admission. Check digoxin level today-pending at this time. (3) Acute renal failure (ARF) Current Visit: Yes Status: Acute Comment: Pt continues to have an elevated creatinine over her probable baseline creatinine of 0.6-0.8. Stop IVF today as her anasarca is much worse and now she has pulmonary edema heard on exam. Will try giving albumin 25% 25g/100ml followed by lasix to help augment her fluid removal. She does not repsond to lasix alone as I suspect she is intravascularly dry but total body fluid overloaded. She remains hyperkalemic but slowly this is getting better. Repeat BMP is pending for this AM. (4) Open abdominal wall wound Current Visit: Yes Status: Acute Code(s): S31.109A - UNSP OPN WND ABD WALL, UNSP Q W/O PENET PERIT CAV, INIT SNOMED Code(s): 811833027 Comment: Continue wet to dry dressing changes. No signs of infection. (5) Decubitus ulcer Current Visit: Yes Status: Acute Code(s): L89.90 - PRESSURE ULCER OF UNSPECIFIED SITE, UNSPECIFIED STAGE SNOMED Code(s): 765805709 Comment: Stage II decubitus is noted on exam. The drain has been removed so I expect she will have improvement in the wound. (6) Colon cancer Current Visit: Yes Status: Acute Comment: S/P partial colectomy with complicated post op course including SBO with ? anastamotic leak requiring repeat trip to OR for laparotomy and washout. Pt had 2 BLANCHE drains present on admission-removed 04/08/17. (7) CAD (coronary artery disease) Current Visit: Yes Status: Acute Code(s): I25.10 - ATHSCL HEART DISEASE OF [place] CORONARY ARTERY W/O ANG PCTRS SNOMED Code(s): 00029026 Comment: Continue ASA and metoprolol. No c/o chest pain at this time. (8) DVT prophylaxis Current Visit: Yes Status: Acute Code(s): JOB6379 - SNOMED Code(s): 545877917 Comment: SQ heparin (9) Full code status Current Visit: Yes Status: Acute Code(s): Z78.9 - OTHER SPECIFIED HEALTH STATUS SNOMED Code(s): 608443361
[2017-04-10 09:59] LABS: Albumin 2.2 g/dL (3.2-5.2); BUN/Creatinine Ratio 17.7 (8-20); Calcium 8.5 mg/dL (8.6-10.3); EGFR African American 49.4 (>60); EGFR Non-African American 38.4 (>60); Magnesium 2.3 mg/dL (1.9-2.7); Potassium 5.4 mmol/L (3.5-5.0); Total Bilirubin 0.4 mg/dL (0.2-1.0); Total Protein 5.2 g/dL (6.4-8.9)
[2017-04-10] MEDS ORDERED: Furosemide IV* 10 MG/ML VIAL (40 MG) IV ONE (10:00)
[2017-04-10 10:35] LABS: Digoxin 3.1 ng/ml (0.8-2.0)
--- NOTE | 2017-04-10 11:12 | PN ---
Progress Note - Progress Note Date of Service: 04/10/17 Note: The patient's digoxin level came back markedly elevated at 3.1 today despite receiving digifab on 04/07/17. Will ask for cardiology consultation given rebound digoxin toxicity and re-dose the digifab at 120mg IV x1 now. Will hold off on neurology consultation for now as the digoxin toxicity can could still be causing her confusion.
[2017-04-10] MEDS ORDERED: Digoxin Immune Fab* 40 MG VIAL IV ONE (11:15)
[2017-04-10] MEDS ORDERED: Furosemide IV* 10 MG/ML 10 ML VIAL (100 MG) IV ONE ×2 (12:28→16:43)
[2017-04-10] MEDS ORDERED: Metolazone TAB* 5 MG PO ONE (12:28)
[2017-04-10 12:43] LABS: FIO2 7
[2017-04-10 12:58] LABS: PCO2 Arterial 42 mmHg (35-45)
[2017-04-10] MEDS ORDERED: Sodium Bicarbonate 8.4%* 50 ML SYRINGE IV ONE (13:10)
[2017-04-10] MEDS ORDERED: Sodium Bicarbonate 8.4% IV* 50 MEQ in NS 0.9% 1000 ML* 1,000 ML IV SCH (14:00)
--- NOTE | 2017-04-10 14:22 | CONSULT ---
Subjective Date of Service: 04/10/17 Interval History: Admission Date: 04/07/17 Consult date 04/10/17 Service: Hospitalist CC: Altered mental status Reason for consult: Digoxin toxicity HPI Ms. Evangelista is a 57-year-old woman with colon cancer s/p colectomy complicated by infection with a recent admission with acute renal failure and anemia. She was given IV fluid, 2 units pRBC and antibiotics. [facility] was [facility]. She is now admitted with confusion and poor appetite. She is not able to provide a useful history. She was given digibind for an elevated digoxin level. Her repeat digoxin level today is still elevated but it is a total level (not unbound) and may not being cleared with renal failure. Her EKG ST depressions improved after this but her mental status remains poor. She was given another dose of digibind. She has decreased urine output and a complex acid-base problems and renal failure. Past Medical History: [place], AICD, atrial fib, DM. Pshx: - Appendectomy - cholecystectomy. - Patient had near-total colectomy with primary terminal ileum to sigmoid anastamosis 03/01/2017 at [facility] for cancer. Prior R colectomy about 4 yrs ago for a cancer. 1 week after her second surgery she had emergency laparotomy. Family History: Findings - noncontributory Social History: Findings - 2 children (daughters), both are her SDM. Quit smoking 8 yrs ago. No alcohol abuse. Medications Active Medications: Aspirin (Aspirin Low Dose Tab*) 81 mg PO DAILY [facility] Last Admin: 04/10/17 08:14 Dose: 81 mg Dextrose (D50w Syringe 50 Ml*) 12.5 gm IV PUSH .FOR FS < 60 - SS PRN PRN Reason: FS < 60 Heparin Sodium (Porcine) (Heparin Vial(*)) 5,000 units SUBCUT Q8HR [facility] Last Admin: 04/10/17 06:31 Dose: 5,000 units Insulin Human Lispro (Humalog*) 0 units SUBCUT Q4HR [facility] PRN Reason: Protocol Last Admin: 04/10/17 10:30 Dose: Not Given Metoprolol Tartrate (Lopressor Tab*) 100 mg PO BID [facility] Last Admin: 04/10/17 08:14 Dose: 100 mg Morphine Sulfate (Morphine Inj (Syringe)*) 2 mg IV Q2H PRN PRN Reason: PAIN - MILD Last Admin: 04/10/17 12:16 Dose: 2 mg Home Medications: Aspirin EC Low Dose* [Ecotrin EC Low Dose 81 MG*] 81 mg PO QAM 03/29/17 [ History Confirmed 04/07/17] Atorvastatin* [Lipitor 40 MG*] 40 mg PO BEDTIME 03/29/17 [History Confirmed ] Mqxqsdc-Esuwaiz-Behgjm Salicyl [Bengay Ultra Strength 4-10-30 %] 1 cre TOPICAL DAILY 03/29/17 [History Confirmed 04/07/17] Cholecalciferol TAB* [Vitamin D TAB*] 2,000 unit PO DAILY 03/29/17 [History Confirmed 04/07/17] Digoxin TAB* [Lanoxin TAB*] 0.25 mg PO QAM 03/29/17 [History Confirmed 04/07/17] Docusate CAP* [Colace Cap*] 100 mg PO QAM 03/29/17 [History Confirmed 04/07/17] Enoxaparin(*) [Lovenox(*)] 40 mg SUBCUT DAILY 03/29/17 [History Confirmed ] Fenofibrate(NF) [Tricor(NF)] 160 mg PO QAM 03/29/17 [History Confirmed 04/07/17] Ferrous Sulfate TAB* 325 mg PO BID 03/29/17 [History Confirmed 04/07/17] Furosemide TAB* [Lasix TAB*] 20 mg PO BID 03/29/17 [History Confirmed 04/07/17] Gabapentin CAP(*) [Neurontin 300 CAP(*)] 300 mg PO TID 03/29/17 [History Confirmed 04/07/17] Lisinopril TAB* [Prinivil TAB 10 MG*] 20 mg PO QAM 03/29/17 [History Confirmed 04/07/17] LoraTADine TAB(NF) [Claritin 10 MG TAB(NF)] 10 mg PO DAILY 03/29/17 [History Confirmed 04/07/17] Magnesium Oxide [Magnesium] 2,000 mg PO DAILY 03/29/17 [History Confirmed ] Meclizine TAB* [Antivert 12.5 TAB*] 25 mg PO TID PRN 03/29/17 [History Confirmed 04/07/17] Metoprolol Tartrate TAB* [Lopressor TAB*] 50 mg PO QID 03/29/17 [History Confirmed 04/07/17] Nystatin SUSPENSION* 5 ml PO QID 03/29/17 [History Confirmed 04/07/17] [place]-3 Fatty Acids (Nf) [Fish Oil (NF)] 1,000 mg PO DAILY 03/29/17 [History Confirmed 04/07/17] Ondansetron ODT TAB* [Zofran 4 MG Odt TAB*] 4 mg PO Q4HR PRN 03/29/17 [History Confirmed 04/07/17] Pantoprazole TAB (NF) [Protonix TAB (NF)] 40 mg PO DAILY 03/29/17 [History Confirmed 04/07/17] Potassium Chlor TAB* [Potassium Chlor TAB 20 MEQ*] 20 meq PO DAILY 03/29/17 [ History Confirmed 04/07/17] Spironolactone TAB* [Aldactone TAB 25 MG*] 25 mg PO DAILY 03/29/17 [History Confirmed 04/07/17] glipiZIDE TAB* [Glucotrol TAB*] 10 mg PO BID 03/29/17 [History Confirmed ] metFORMIN* [Glucophage 1000 MG TAB *] 1,000 mg PO BID 03/29/17 [History Confirmed 04/07/17] oxyCODONE/Acetamin 5/325 MG* [Percocet 5/325 TAB*] 1 - 2 tab PO Q6H PRN [History Confirmed 04/07/17] Amoxicillin/Clavulanate TAB* [Augmentin TAB 875*] 875 mg PO BID #10 tab [Rx Confirmed 04/07/17] Albuterol Sulfate [Proair Respiclick] 108 mcg IN Q6HR PRN 04/07/17 [History Confirmed 04/07/17] Dicyclomine CAP* [Bentyl CAP*] 10 mg PO ACHS PRN 04/07/17 [History Confirmed ] Review of Systems - Measurements Intake and Output: Intake and Output Last 24 Hours 04/08/17 04/09/17 04/10/17 04/11/17 06:59 06:59 06:59 06:59 Intake Total 618 2061 4307.6 Output Total 255 180 650 Balance 363 9651 6717.6 Weight 130 lb 1.164 oz 127 lb 12.8 oz Intake: IV Fluids 618 2010 3300 NS (0.9%) 618 2010 3300 IVPB 105 NS (0.9%) 105 Medicated IV 5.6 GEN - Magnesium 5.6 Oral 50 897 Output: BLANCHE #1 5 BLANCHE #2 0 Urine 0 Be 250 180 200 Liquid Stool 450 Other: Date of Last Bowel 04/08/17 04/09/17 Movement # Bowel Movements 0 0 Estimated Stool Amount Large Medium - Review of Systems Review of Systems Statement: unable to obtain due to altered mental status Objective Vital Signs: Temp Pulse Resp BP Pulse Ox 98.9 F 113 24 166/82 88 04/10/17 09:42 04/10/17 09:42 04/10/17 13:16 04/10/17 09:42 04/10/17 09:42 Oxygen Devices in Use Now: None Appearance: ill appearing, Ears/Nose/Mouth/Throat: Clear Oropharnyx Neck: - - supple, undertain jvp Respiratory: Clear to Auscultation, - - mild increaesd work of breathihg Cardiovascular: - - irregularly irregular, no significnat murmur, pacemaker in place Abdominal: - - no rigidity, not fully examined Extremities: No Clubbing, Cyanosis, - - + edema Neurological: - - awake Laboratory Results: 04/09/17 10:23 04/10/17 09:37 INR (Anticoag Therapy) 1.37 (0.89-1.11) H 04/08/17 09:45 APTT 38.1 seconds (26.0-36.3) H 04/08/17 09:45 Total Bilirubin 0.40 mg/dL (0.2-1.0) 04/10/17 09:37 AST 20 U/L (13-39) 04/10/17 09:37 ALT 6 U/L (7-52) L 04/10/17 09:37 Alkaline Phosphatase 59 U/L (34-104) 04/10/17 09:37 CK-MB (CK-2) 4.3 ng/mL (0.6-6.3) 04/07/17 17:30 B-Natriuretic Peptide 950 pg/mL (-100) H 04/07/17 17:30 Total Protein 5.2 g/dL (6.4-8.9) L 04/10/17 09:37 Albumin 2.2 g/dL (3.2-5.2) L 04/10/17 09:37 Globulin 3.0 g/dL (2-4) 04/10/17 09:37 Albumin/Globulin Ratio 0.7 (1-3) L 04/10/17 09:37 TSH 2.33 mcIU/mL (0.34-5.60) 04/07/17 17:30 04/07/17 17:30 Troponin I 0.03 04/07/2017: digoxin level 2.6 04/10/2017 digoxin level 3.1 abg 04/10/2017 ph 7.12, pc02 42/po2 82, bicarb 12 on AM BMP ammonia 41 lactic acid 0.7 Diagnostic Imaging: cxr 04/07/2017: potential trace pleural effusions EKG Data: ekg 03/29/2017 Sinus tachycardia, IVCD, deep downsloping ST depression anterolateral and inferior leads consider ischemia vs. repolarization vs. digoxin effect (or combination) EKG 04/07/2017: sinus vs. atrial tachycardia, incomplete rbbb, old anteroseptal MIST depression V4-V6 and inferior leads minimal downsloping 04/10/2017 similar to 04/07, ST depression significantly improved Assessment/Plan Justice Evangelista is a 57 year old woman I am consulted with for possible digoxin toxicity. After discussing with Dr. Raleigh Fang, it is not felt that digoxin toxicity is an active issue in patients current complex medical state and she has already received multiple digibind doses without improvement. Her EKG changes have nearly normalized and the total bound levels should not be followed as they are unreliable. Out of precaution, I would not restart digoxin. Given her cardiac disease, if BP tolerates would rate control with increase of beta-jayme dose. Thank you for allowing me to participate in the cardiovascular care of this patient. Please do not hesitate to contact me with questions or concerns.
--- NOTE | 2017-04-10 14:54 | RAD ---
INDICATION: Digitoxicity. Evaluate for pulmonary edema. COMPARISON: Most recent comparison chest x-rays dated April 07, 2017 TECHNIQUE: Single AP portable view of the chest was obtained. FINDINGS: Image quality is compromised due to the relative inferiority of a portable chest x-ray. Relative to the previous chest x-ray there is been a small interval increase in the degree of cardiomegaly. There are diffuse bilateral patchy densities as well as indistinction and engorgement of the pulmonary vasculature. Density obscures the bilateral hemidiaphragm causing bilateral costophrenic angle blunting. Loops of bowel, likely small bowel measure up to 4 cm in diameter. IMPRESSION: 1. Chest x-ray findings, progressed relative to the April 07, 2017 chest x-ray, could be seen in the setting of cardiogenic pulmonary edema, drug toxicity or ARDS, to name a few potential etiologies. 2. Air-filled loops of small bowel are dilated up to 4 cm in diameter.
[2017-04-10 14:56] LABS: Albumin 2.8 g/dL (3.2-5.2); BUN/Creatinine Ratio 17.4 (8-20); Calcium 9.1 mg/dL (8.6-10.3); Direct Bilirubin 0.1 mg/dL (0.03-0.18); EGFR African American 44.3 (>60); EGFR Non-African American 34.5 (>60); Globulin 3.1 g/dL (2-4); Indirect Bilirubin 0.4 mg/dL (0.3-1.0); One Over Creatinine 0.6 mg/dL (0.51-0.95); Potassium 5.7 mmol/L (3.5-5.0); Total Bilirubin 0.5 mg/dL (0.2-1.0); Total Protein 5.9 g/dL (6.4-8.9)
[2017-04-10] MEDS ORDERED: Sodium Bicarbonate 8.4% IV* 50 ML VIAL ONE (15:50)
--- NOTE | 2017-04-10 16:00 | PN ---
Critical Care Services: 57 YO female transferred to ICU because of oliguric renal failure, metabolic acidosis, and difficulty breathing. Patient has recent Hx of subtotal colectomy for CA (surgery at [facility]) with a second laparotomy for bowel obstruction (due to adhesions from retained suture) and subsequent postop wound infection. Discharged from [facility] on March 03 following hospitalization for wound infection and acute renal failure - readmitted on March 08 for confusion, thought secondary to digitalis toxicity, which was treated with digibind. Since then, patient has continued to be confused, and has developed oliguria unresponsive to fluids, and non-anion gap metabolic acidosis, with arterial pH down to 7.13. Creatinine has stayed around 1.5 (estimated GFR about 40 ml/min). No systemic signs of infection (fever, leukocytosis). Vital Signs: Temp Pulse Resp BP SpO2 FiO2 99.7 F 104 18 153/81 100 100 Physical Exam: Gen:Patient is awake but responds poorly to verbal commands. Has kussmaul respirations. HEENT:Pupils midposition and reactive. No facial asymmetry. Lungs:Crackles and diminished BS at both bases posteriorly. Cardiac: Reg rhythm. No murmurs or rubs. Abdomen: Not distended. No tenderness or guarding. Midline surgical incision remains open, but there is no purulence. There is a 1 cm "nubbin" of mesh visible at the lower end of the incision, just below the umbilicus. Extremities:Cool, but not cyanotic. There is 2+ edema throughout (i.e., anasarca ) Fluid Balance (Past 24 Hours): 04/10/17 06:59 Intake Total 4307.6 Output Total 650 Balance +3657.6 Weight Intake: IV Fluids 3300 NS (0.9%) 3300 IVPB 105 NS (0.9%) 105 Medicated IV 5.6 GEN - Magnesium 5.6 Oral 897 Output: BLANCHE #1 BLANCHE #2 Urine Be 200 Liquid Stool 450 Other: Date of Last Bowel 04/09/17 Movement # Bowel Movements 0 Estimated Stool Amount Medium Labs: 04/10/17 04/10/17 04/10/17 06:29 09:37 09:37 Sodium 134 Potassium 5.4 H Chloride 112 H Carbon Dioxide 12 L* Anion Gap 10 BUN 25 H Creatinine 1.41 H 1/Creatinine Est GFR ( Amer) 49.4 Est GFR (Non-Af Amer) 38.4 BUN/Creatinine Ratio 17.7 Glucose 107 H Lactic Acid Calcium 8.5 L Magnesium 2.3 Total Bilirubin 0.40 Direct Bilirubin Indirect Bilirubin AST 20 ALT 6 L Alkaline Phosphatase 59 Ammonia 41 Total Protein 5.2 L Albumin 2.2 L Digoxin 3.1 H* 04/10/17 04/10/17 04/10/17 12:22 12:40 14:10 Patient Temperature Not Reportable ABG pH 7.12 L* ABG pCO2 42 ABG pO2 82 ABG HCO3 13.4 L ABG O2 Saturation 97.4 ABG Base Excess -14.7 L Lactic Acid 0.7 04/10/17 14:30 Sodium 132 L Potassium 5.7 Chloride 112 Carbon Dioxide 14 Anion Gap 6 BUN 27 Creatinine 1.55 Est GFR (Non-Af Amer) 34.5 Glucose 115 Calcium 9.1 Total Bilirubin 0.50 Direct Bilirubin 0.10 Indirect Bilirubin 0.4 AST 20 ALT 6 L Alkaline Phosphatase 56 Ammonia Total Protein 5.9 L Albumin 2.8 L Globulin 3.1 Albumin/Globulin Ratio 0.9 L Digoxin Studies: CXR: pulmonary congestion with bilateral pleural effusions. Intraabdominal pressure = 6-7 cm H2O Nutrition: NPO at this time Impression: Major problems are: 1. Hyperchloremic (non-gap) metabolic acidosis - Most likely sources are saline infusion and renal insufficiency. 2. Oliguria - etiology unclear - doubt sepsis or abdominal compartment syndrome. Renal function seems remarkably preserved. No reason to suspect obstruction. 3. Confusion - also no apparent source. Doubt uremia, given level of renal function. Also no evidence for liver failure or sepsis. 4. Hyperkalemia - probably from acidosis and renal insufficiency. No reason to suspect adrenal insufficiency. Dig toxicity seems to have resolved after the digibind Rx. Plan: 1. Stop saline infusions. 2. Kayexalate for hyperkalemia 3. Intermittent bicarb injections for the acidosis. 4. Renal service is following - we do not feel that dialysis is needed at this time. Prognosis guarded at this time. Critical Care Time: 120 minutes, including discussions with Greer Meek ( Renal), and Yuki (surgery), but not including discussions with the family.
[2017-04-10] MEDS ORDERED: Sodium Bicarbonate 8.4% IV* 50 ML VIAL IV ONE (16:35)
[2017-04-10] MEDS ORDERED: Furosemide IV* 10 MG/ML 10 ML VIAL (100 MG) ONE (16:50)
--- NOTE | 2017-04-10 16:55 | CONS ---
NEPHROLOGY CONSULTATION: DATE OF CONSULT: HISTORY OF PRESENT ILLNESS: Ms. Evangelista is a 57-year-old female, who underwent a transverse and descending colectomy for colon cancer approximately 1 month ago. She had previously had a hemicolec isiah for polyp disease. She had had a colonoscopy about a year and a half ago, which did not reveal any significant disease, but then on repeat colonoscopy, she was found to have what was felt to be fairly aggressive colon cancer. She underwent a resection with an end-to-end re- anastomosis. She required going back to the operating room because of a bowel obstruction. She then required admissi on because of a wound infection including abscesses. She was brought to the hospital on this occasi on because of worsening mental status. In addition, she had become markedly edematous. She was not ed by Dr. Funez today to have worsening renal function and worsening respiratory status and that he r mental status had been deteriorating from the time of admission. According to her nurse, her respi ratory situation was deteriorating from about the time I was called until I arrived about 45 minutes later. Her course has been complicated by episode of digitalis toxicity accompanied by hyperkalemi a. PAST MEDICAL HISTORY: Significant for chronic obstructive pulmonary disease. She has a history of systolic congestive heart failure. She has diabetes mellitus, type 2. She has a history of hyperte nsion. MEDICATIONS: Her outpatient medications included: 1. Amoxicillin with clavulanic acid. 2. Aspirin 81 mg daily. 3. Lipitor 40 mg daily. 4. Bengay topically. 5. Loratadine 10 mg daily. 6. Cholecalciferol 1000 units daily. 7. Digoxin 0.25 mg daily. 8. Fenofibrate 160 mg daily. 9. Lisinopril 20 mg daily. 10. Magnesium oxide 2000 mg daily. 11. Meclizine 25 mg daily. 12. Metoprolol 50 mg daily. 13. Nystatin 5 cc by mouth 4 times a day. 14. Protonix 40 mg daily. 15. Zofran 4 mg as required. 16. Potassium chloride 20 mEq daily. 17. Spironolactone 25 mg daily. 18. Oxycodone with acetaminophen 5/325 every 6 hours p.r.n. for pain. 19. Docusate sodium 100 mg daily. 20. Iron sulfate 325 mg twice a day. 21. Lasix 20 mg twice a day. 22. Gabapentin 300 mg 3 times a day. 23. [place]-3 fatty acids 1000 mg a day. 24. Glipizide 10 mg twice a day. ALLERGIES: She is allergic to AZITHROMYCIN and PEANUT OIL. SOCIAL HISTORY: Her daughter is her healthcare proxy agent. REVIEW OF SYSTEMS: Unobtainable at the present time as she is quite stuporous. PHYSICAL EXAM: She is a stuporous white female exhibiting Kussmaul respirations. Her respiratory ra te has increased from 18 to approximately 30 over the course of morning. Blood pressure is 166/82 w ith a pulse of 113, O2 saturation is now 100%, but was down as low as 88% earlier today. She has ec chymosis noted. Her extraocular muscles are intact. She is anicteric. Her mucous membranes are dr y but she did have a great deal of mouth breathing. She has some diffuse rales noted with diminishe d breath sounds to the bases. The heart reveals a tachycardic rhythm. I could not hear any murmurs . Her abdomen is distended, but not rigid. She winces a little to palpation. Bones, joints, and ex tremities, she has anasarca diffusely. LABORATORY DATA: Her white count is 3000 and that is down from 3.9 on admission; her hemoglobin is 12.3; her platelet count is 144,000. Her INR on 04/08/17 was 1.37. pH as of 12:40 today was 7.12, PCO2 42, PO2 82. Sodium of 134, potassium of 5.4, total CO2 12, chloride 112, anion gap 10, BUN of 25, creatinine of 1.41, glucose 107, calcium of 8.5 with an albumin of 2.2. She has had very little urine output during this admission, but her urinalysis on 04/08/17 revealed 2+ blood, 2+ rbc's, 1+ bacteria, but there were epithelial cells noted. IMPRESSION: 1. Acute renal failure manifested by significant oliguria. 2. Hyperkalemia. 3. Metabolic acidosis. The fact that she has hypoalbuminemia would tend to underestimate the anion gap in this situation. 4. History of at least stage III colon cancer. She had many nodes positive at her original surgery . DISCUSSION: I have to be suspicious that she is having worsening lactic acidosis because of the rat e of deterioration of her acid base status. Clearly, multiple causes of acute increased anion gap a cidosis are not operative in her. She has not been getting alcohol or ethylene glycol while she was treated with metformin previously. She has not received metformin in the past few days. I have re commended to Dr. Funez and Dr. Fang that we recheck her electrolytes and serum lactate at this ti me. We also think it is a good idea for her to have a surgical evaluation. The family has been abigail rised of the situation and we have been quite fariba with them about the prognosis being quite poor. They have not yet given us direction on how aggressive to be in her interventions. We have suggest ed that a repeat surgical intervention would be fought with significant risk. We have also discusse d the potential for CT scanning with x-ray contrast agents and its implication for renal failure. W e have suggested that if we were going to be very aggressive, it is highly likely that dialysis woul d be in order. There are a number of pending laboratory studies at the present time. [id number]/[facility] #: [id number]
[2017-04-10 17:01] LABS: FIO2 100
[2017-04-10 17:04] LABS: PCO2 Arterial 40 mmHg (35-45)
--- NOTE | 2017-04-10 20:56 | CONS ---
CC: Dr. Nishant Jaramillo; Dr. Pepe Fang; Dr. Bello Butterfield CONSULTATION REPORT: DATE OF CONSULT: 04/10/17 HISTORY: The patient evidently had a subtotal colectomy performed down in [place] over a month ago for what proved to be stage III colon cancer. She had a complication of postop bowel obstruction, requiring return to the operating room during the same admission. Evidently, there was a suture that was misplaced causing some kind of kinking or blockage in the bowel; this is according to the daughters. I am unable to get really much history from the patient. She is a little confused. They also state that prior to her discharge from [facility], she was found to have an abscess behind the bladder and had 2 percutaneous drains placed and she was sent to the intermediate with those in place. These were placed approximately 3 weeks ago and were removed 2 days ago. She presented here to the hospital at this time with hyperkalemia and dig toxicity and I am being called because there is a question of intraabdominal sepsis due to renal failure and acidosis. PHYSICAL EXAM: Today, her color is good. She appears comfortable. She is breathing with only minor effort. Her blood pressure is good and she has a temperature of 99. She is not really making much in the way of any urine. The abdomen is obese and soft and the best I ascertain, there is no major tenderness. Again, she is somewhat confused. So, it a little hard to ascertain , but if I press on the sternum or pinch her nail bed, there was clearly elicit grimaces and she mentions pain, but the abdomen does not elicit anything like that. She has a midline incision, which is granulating well except for the lower end, it is open by about 2 cm and there is some foreign material extruding through the granulation. This appears to be a piece of Thornton-Xavier mesh and some suture material. I did debride the Thornton-Xavier mesh and suture material at the bedside and left clean granulation underneath, the area is redressed with gauze. LABORATORY STUDIES: Currently show signs of acidosis with white blood count running between 3 and 4 with somewhat of a left shift. She, however, has lactic acid of 0.7, her creatinine 1.5. IMPRESSION AND PLAN: A 57-year-old female with acidosis and renal failure with question of abdominal sepsis. At the present time, I do not see enough evidence of abdominal sepsis to mandate laparotomy. I think CT scan was reviewed from a couple of days ago and looked good. The pigtail drains removed because the abscess was resolved and there was no drainage. I am not sure how beneficial it would be to get a repeat CT scan now. I do not think she could tolerate the IV contrast given her renal function and picking up an abscess becomes more difficult without contrast and yet I am not sure she could tolerate oral intake to opacify the bowel as well. In any case, there is not any major critical concern for intraabdominal sepsis based on the examination. Furthermore, I think she would have a hard time recovering from an emergent laparotomy now. I talked with her family and her daughters and I would almost guarantee that if she had a repeat laparotomy now, even if we did not find anything, she would come out on the ventilator and it will be unclear how long it would take her to come off the ventilator, but they indicate that they do not think she would want to be on the ventilator and they are not feeling very confident that she could even survive another laparotomy, so given the low index of suspicion of abdominal sepsis and their wishes, we will not plan any laparotomy at present and I will be happy to follow her along with you and please feel free to call me if anything arises. [id number]/[facility] #: [id number] JABARI
[2017-04-10 21:02] LABS: Anion Gap 4 mmol/L (2-11); BUN/Creatinine Ratio 19.7 (8-20); Blood Urea Nitrogen 30 mg/dL (6-24); CO2 Carbon Dioxide 14 mmol/L (22-32); Calcium 8.5 mg/dL (8.6-10.3); Chloride 114 mmol/L (101-111); EGFR African American 45.3 (>60); EGFR Non-African American 35.2 (>60); Glucose 127 mg/dL (70-100); Sodium 132 mmol/L (133-145)
[2017-04-11] MEDS: Morphine INJ* 2 MG/ML 1 ML SYRINGE IV PRN ×3 (02:10→16:58)
[2017-04-11] MEDS: Insulin LISPRO* 1 UNITS UNIT SUBCUT SCH ×5 (02:12→21:00)
[2017-04-11 05:28] LABS: Hematocrit 24 % (35-47); Hemoglobin 7.7 g/dl (12.0-16.0); Mean Corpuscular HGB Conc 32 g/dl (31-36); Mean Corpuscular Hemoglobin 30 pg (27-31); Mean Corpuscular Volume 92 fL (80-97); Mean Platelet Volume 8 um3 (7.4-10.4); Red Blood Count 2.56 10^6/ul (4.0-5.4); Red Cell Distribution Width 18 % (10.5-15); White Blood Count 5.5 10^3/ul (3.5-10.8)
[2017-04-11 05:30] LABS: Add Diff/Slide Review? Slide Review Added; Comments Flag Yes
[2017-04-11 05:40] LABS: EGFR African American 41.8 (>60); EGFR Non-African American 32.5 (>60); Potassium 5.4 mmol/L (3.5-5.0)
[2017-04-11] MEDS: Heparin VIAL(*) 5000 UNITS/ML VIAL (FIVE THOUSAND) SUBCUT SCH ×3 (05:43→21:00)
[2017-04-11] MEDS: Metoprolol Tartrate TAB* 100 MG TAB PO SCH ×2 (09:14→21:00)
--- NOTE | 2017-04-11 09:25 | RAD ---
INDICATION: Pulmonary edema COMPARISON: Most recent comparison chest x-ray dated April 10, 2017 TECHNIQUE: Single AP portable view of the chest was obtained. FINDINGS: Image quality is compromised due to the relative inferiority of a portable chest x-ray. Again seen is cardiomegaly similar in appearance to the previous chest x-ray. There is persistent patchy densities overlying the lungs with engorgement and indistinction of the pulmonary arterial vasculature. Worsening densities are seen over lying the right greater than left lung bases obscuring the diaphragm and causing costophrenic angle blunting. Air-filled loops of bowel are again seen beneath the diaphragm. IMPRESSION: Appearance is consistent with worsening pulmonary edema with right greater than left pleural effusions.
--- NOTE | 2017-04-11 10:31 | PN ---
Critical Care Services: Patient has done well overnight, and is less confused this AM. However, urine output remains low, despite high-dose furosemide. Vital Signs: Temp Pulse Resp BP SpO2 FiO2 98.8 F 96 16 119/57 100 100 Physical Exam: Gen:Awake and follows verbal commands intermittently HEENT: No facial asymmetry Lungs: Crackles at both bases Abdomen:No change from yesterday Extremities:Cool. No cyanosis. Edema unchanged from yesterday. Fluid Balance (Past 24 Hours): 04/11/17 06:59 Intake Total 160 Output Total 500 Balance -340 Weight 139 lb Intake: IV Fluids NS (0.9%) Oral 160 Be Irrigate Amount Output: Be 500 Liquid Stool Other: # Bowel Movements Estimated Stool Amount Labs: 04/10/17 04/11/17 04/11/17 22:58 02:06 05:12 Sodium 135 Potassium 5.2 H 5.4 Chloride 115 Carbon Dioxide 15 Anion Gap 5 BUN 31 Creatinine 1.63 Est GFR (Non-Af Amer) 32.5 Glucose 96 04/11/17 04/11/17 05:12 05:27 WBC 5.5 Hgb 7.7 Hct 24 Plt Count 140 Lactic Acid 0.5 Studies: CXR: No change from yesterday. Nutrition: Full Liquid diet. Impression: Major problems include: 1. Hyperchloremic metabolic acidosis - probably due to a combination of early renal insufficiency and saline hydration. 2. Renal insufficiency: creatinine up to 1.6 today, and patient remains oliguric (urine output yesterday was 500 cc, or 20 cc/hr) despite aggressive hydration and high-dose furosemide. No clear etiology. 3. Confusion - probable delirium. Is improved today. 4. Abrupt decrease in Hb and Hct (equivalent to 4 units of whole blood!!) - no apparent blood loss and no reason for massive hemolysis. ? lab error. Plan: 1. Repeat H&H. Hematest a stool sample. 2. Advance diet. 3. Monitor acid-base status and renal function. No interventions today for these problems. Patient does not need dialysis at this point. Critical Care Time: 40 minutes (excluding time spent with patient's family).
[2017-04-12 04:40] LABS: Hematocrit 24 % (35-47); Hemoglobin 7.8 g/dl (12.0-16.0); Mean Corpuscular HGB Conc 32 g/dl (31-36); Mean Corpuscular Hemoglobin 30 pg (27-31); Mean Corpuscular Volume 92 fL (80-97); Mean Platelet Volume 8 um3 (7.4-10.4); Red Blood Count 2.61 10^6/ul (4.0-5.4); Red Cell Distribution Width 19 % (10.5-15); White Blood Count 3.6 10^3/ul (3.5-10.8)
[2017-04-12 04:53] LABS: Calcium 9.1 mg/dL (8.6-10.3); EGFR African American 37.5 (>60); EGFR Non-African American 29.2 (>60)
[2017-04-12] MEDS: Morphine INJ* 2 MG/ML 1 ML SYRINGE IV PRN ×5 (06:26→22:14)
[2017-04-12] MEDS: Heparin VIAL(*) 5000 UNITS/ML VIAL (FIVE THOUSAND) SUBCUT SCH ×3 (06:26→22:19)
--- NOTE | 2017-04-12 08:46 | PN ---
Critical Care Services: More alert today!! It is possible that mental status changes were due to digitalis toxicity. Still no apparent adverse consequence of the drop in hemoglobin (which is probably dilutional, in retrospect). Vital Signs: Temp Pulse Resp BP SpO2 FiO2 98.5 F 88 18 129/65 96 100 Physical Exam: Gen:Alert and now responds appropriately to commands. Is breathing comfortably. HEENT: No visible JVD Lungs: Crackles at both bases posteriorly. Cardiac: S1 and S2 distinct. Abdomen: No change in exam from yesterday. Abdomen nontender. Extremities:Warm. 2+edema, but no cyanosis. Fluid Balance (Past 24 Hours): 04/12/17 06:59 Intake Total 1020 Output Total 368 Balance +652 Weight 134 lb Intake: IV Fluids NS (0.9%) Oral 1000 Be Irrigate Amount 20 Output: Be 368 Liquid Stool Other: Date of Last Bowel Movement # Bowel Movements Estimated Stool Amount Labs: 0 04/12/17 04/12/17 04:30 04:30 WBC 3.6 Hgb 7.8 Hct 24 Plt Count 153 Sodium 133 Potassium 5.0 Chloride 112 Carbon Dioxide 17 BUN 34 Creatinine 1.79 Est GFR (Non-Af Amer) 29.2 Glucose 173 Cortisol 15.23 Studies: Transthoracic Cardiac ECHOm - pending Nutrition: Unrestricted diet Impression: Overall, is improving. Major problems include: 1. Renal insufficiency - unclear etiology - urine output has been poor (390 cc yesterday), and is unresponsive to volume resuscitation. Workup for abdominal compartment syndrome was unrevealing. 2. Hyperchloremic metabolic acidosis - most likely due to renal insufficiency and isotonic saline infusions (to correct oliguria). Has improved since stopping IV saline. 3. Sudden drop in hemoglobin (from 11s to 7s) - no evidence of bleeding or hemolysis. Probably dilutional from 4 liters saline given for poor urine output (patient may have small intravascular volume). Cardiac ECHO scheduled today to r /o pericardial hemorrhage, but this is unlikely. 4. Confusion - has decreased in severity over past few days, and it is likely that dig toxicity was the culprit. Plan: 1. Monitor renal function and urine output, but hold on further volume resuscitation for urine output. No need for dialysis at this time. Renal service is following. 2. Follow mental status for now - no neuro consult as long as mental status is improving. 3. Three daily stool hematest determinations (to r/o GI bleed, although I doubt) . 4. Transfer out of ICU today.
[2017-04-12] MEDS: Insulin LISPRO* 1 UNITS UNIT SUBCUT SCH ×4 (09:10→22:18)
[2017-04-12] MEDS: Metoprolol Tartrate TAB* 100 MG TAB PO SCH ×2 (09:10→22:19)
--- NOTE | 2017-04-12 16:58 | ECHO ---
Amended Report Patient: SHAKA GAN Rec#: [id number] : 1960 Date: 04/12/2017 Age: 57y Height: 160.02 cm / 63.0 in Weight: 60.78 kg / 134.0 lbs Sex: F BSA: 1.63 Room#: 415 Admit Date#: 04/07/2017 Type: Inpatient Referring: Pepe Fang DO Reading: Kobe Dietz MD Extended Day Teacher: [facility] Transthoracic Echocardiogram Indication: SOB BP: 144/73 HR: 85 Rhythm: NSR Findings History: Metabolic acidosis, renal failure. Colon cancer, recent near total colectomy, CHF, ICD, CAD, HTN, COPD, DM, former smoker. Technical Comments: The study quality is good. Completed 1630 Left Ventricle: The left ventricular chamber size is normal. Mild concentric left ventricular hypertrophy is observed. There is global hypokinesis of the left ventricle with minor regional variation.More pronounced hypokinesis to akinesis of the inferior and inferoseptal segments. There is severely decreased left ventricular systolic function. The estimated ejection fraction is 20-25%. Abnormal left ventricular diastolic filling is observed, consistent with impaired relaxation. The basal anteroseptal, basal anterior, basal anterolateral, basal inferolateral, mid anteroseptal, mid anterior, mid anterolateral, mid inferolateral, apical septal, apical anterior, apical lateral, and apical inferior wall segments are hypokinetic (score 2). The basal inferior, basal inferoseptal, mid inferior, and mid inferoseptal wall segments are akinetic (score 3). Overall wallmotion score index is 2.25 Left Atrium: The left atrial chamber size is normal. Right Ventricle: The right ventricle wall thickness is mildly increased. The right ventricular cavity size is normal. The right ventricular global systolic function is mildly reduced. Right Atrium: The right atrial cavity size is normal. Aortic Valve: The aortic valve is trileaflet. The aortic valve leaflets are mildly thickened. Systolic excursion of the aortic valve is normal. There is a trace of aortic regurgitation. There is no evidence of aortic stenosis. Mitral Valve: The mitral valve leaflets are mildly thickened. There is a trace of mitral regurgitation. There is no evidence of mitral stenosis. Tricuspid Valve: The tricuspid valve leaflets are normal. There is trace tricuspid regurgitation. Unable to estimate the right ventricular systolic pressure. Pulmonic Valve: The pulmonic valve appears normal. There is trace to mild pulmonic regurgitation. Pericardium: There is no significant pericardial effusion. Aorta: The aortic root appears normal. The aortic arch is not well visualized. Pulmonary Artery: The main pulmonary artery is not well visualized. Venous: The inferior vena cava appears normal in size. There is a greater than 50% respiratory change in the inferior vena cava dimension. Summary: There was not any prior study for comparison. Conclusions Mild concentric left ventricular hypertrophy is observed. There is global hypokinesis of the left ventricle with minor regional variation. More pronounced hypokinesis to akinesis of the inferior and inferoseptal segments. There is severely decreased left ventricular systolic function. The estimated ejection fraction is 20-25%. Abnormal left ventricular diastolic filling is observed, consistent with impaired relaxation. The right ventricle wall thickness is mildly increased. The right ventricular global systolic function is mildly reduced. The aortic valve leaflets are mildly thickened. There is a trace of mitral regurgitation. There is trace tricuspid regurgitation. There is a trace of aortic regurgitation. addendum: RV pacemaker in place. Measurements Name Value Normal Range RVIDd (AP) 2D 1.6 cm (0.9 - 2.6) RVDdMajor (2D) 1.9 cm (2.2 - 4.4) RAd ISD 4CH 3.8 cm (3.4 - 4.9) RA (A4C)W 2.3 cm (2.9 - 4.6) IVSd (2D) 1.2 cm (0.6 - 1) LVPWd (2D) 1.2 cm (0.6 - 1) LVIDd (2D) 4.6 cm (3.6 - 5.4) LVIDs (2D) 4.4 cm - LV FS (2D) 6 % (25 - 45) Aortic Annulus 2 cm (1.4 - 2.6) Ao root diameter (2D) 2.6 cm (2.1 - 3.5) Ascending Ao 2.8 cm (2.1 - 3.4) LA dimension (AP) 2D 3.3 cm (2.3 - 3.8) LAd ISD 4CH 4.5 cm (2.9 - 5.3) LA ISD 4CH W 2.7 cm (2.5 - 4.5) Name Value Normal Range LA ESV SP 4CH (A/L) 27.44 ml - LA ESV SP 2CH (A/L) 47.41 ml - LA ESV BP (A/L) 37.3 ml - LA ESV BP (A/L) index 23 ml/m2 - LA ESV SP 4CH (MOD) 23.27 ml - LA ESV SP 2CH (MOD) 41.61 ml - Name Value Normal Range MV E-wave Vmax 0.8 m/sec - MV deceleration time 137 msec - MV A-wave Vmax 0.9 m/sec - MV E:A ratio 0.9 ratio - P. vein S-wave Vmax 0.59 m/sec - P. vein D-wave Vmax 0.29 m/sec - P. vein S:D Vmax ratio 2.01 ratio - P. vein A-wave duration 96.89 msec - LV septal e' Vmax 0.05 m/sec - LV lateral e' Vmax 0.05 m/sec - LV E:e' septal ratio 16 ratio - LV E:e' lateral ratio 16 ratio - Name Value Normal Range AV Vmax 1.4 m/sec - AV VTI 25 cm - AV peak gradient 8 mmHg - AV mean gradient 3.7 mmHg - LVOT Vmax 1.1 m/sec - LVOT VTI 19.7 cm - LVOT peak gradient 5 mmHg - LVOT mean gradient 2.2 mmHg - DAMARIS Vmax 0.7 m/sec - Name Value Normal Range MV Vmax 1.1 m/sec - MV VTI 23.2 cm - MV peak gradient 5 mmHg - MV mean gradient 2.2 mmHg - MV PHT 48 msec - MVA (PHT) 4.6 cm2 - Name Value Normal Range RAP 8 mmHg - IVC diameter 1.9 cm - Name Value Normal Range PV Vmax 0.6 m/sec - PV peak gradient 1.4 mmHg - Wallmotion BAS Hypokinetic BA Hypokinetic BAL Hypokinetic GOVIND Hypokinetic BI Akinetic BIS Akinetic MAS Hypokinetic MA Hypokinetic MAL Hypokinetic MIL Hypokinetic MA Akinetic MIS Akinetic Hypokinetic AA Hypokinetic AL Hypokinetic AI Hypokinetic APEX Hypokinetic
[2017-04-13] MEDS: Heparin VIAL(*) 5000 UNITS/ML VIAL (FIVE THOUSAND) SUBCUT SCH ×3 (05:41→21:08)
[2017-04-13] MEDS: Morphine INJ* 2 MG/ML 1 ML SYRINGE IV PRN ×2 (05:41→08:59)
[2017-04-13 05:53] LABS: Hematocrit 22 % (35-47); Hemoglobin 7.3 g/dl (12.0-16.0); Mean Corpuscular HGB Conc 33 g/dl (31-36); Mean Corpuscular Hemoglobin 30 pg (27-31); Mean Corpuscular Volume 90 fL (80-97); Mean Platelet Volume 8 um3 (7.4-10.4); Red Blood Count 2.48 10^6/ul (4.0-5.4); Red Cell Distribution Width 17 % (10.5-15); White Blood Count 2.9 10^3/ul (3.5-10.8)
[2017-04-13 06:03] LABS: BUN/Creatinine Ratio 18.7 (8-20); Calcium 9.2 mg/dL (8.6-10.3); EGFR African American 36.8 (>60); EGFR Non-African American 28.6 (>60); Potassium 5.2 mmol/L (3.5-5.0)
[2017-04-13 06:06] LABS: Comments Flag Yes
[2017-04-13] MEDS: Metoprolol Tartrate TAB* 100 MG TAB PO SCH ×2 (08:58→21:11)
[2017-04-13] MEDS: Famotidine TAB* 20 MG PO SCH (08:58)
[2017-04-13] MEDS: Insulin LISPRO* 1 UNITS UNIT SUBCUT SCH ×4 (08:59→21:06)
[2017-04-13] MEDS ORDERED: Ondansetron ODT TAB* 4 MG SL PRN (13:02)
[2017-04-13] MEDS: oxyCODONE TAB* 5 MG TAB PO PRN ×3 (13:06→21:07)
[2017-04-13] MEDS: Sodium Polystyrene ORAL.SOL* 15 GM/60 ML BTL PO SCH ×4 (13:07→21:54)
[2017-04-13 13:30] LABS: Add Diff/Slide Review? Manual Diff Added
[2017-04-13 13:32] LABS: Corrected Retic Count 1.6 % (0.5-1.5); Immature Retic Fraction 0.42
[2017-04-13 14:15] LABS: Eosinophils % 1 % (0-6); Immature Granulocytes 1 % (0-9); Neutrophil % 69 % (38-83)
[2017-04-13 14:16] LABS: Add Path Review? YES; Burr Cells 1+; Polychromasia 1+
[2017-04-13] MEDS: Ondansetron INJ* 2 MG/ML VIAL IV PRN (17:42)
[2017-04-14] MEDS: oxyCODONE TAB* 5 MG TAB PO PRN ×2 (04:11→09:16)
[2017-04-14] MEDS: Sodium Polystyrene ORAL.SOL* 15 GM/60 ML BTL PO SCH (04:16)
[2017-04-14] MEDS: Heparin VIAL(*) 5000 UNITS/ML VIAL (FIVE THOUSAND) SUBCUT SCH ×3 (06:20→20:25)
[2017-04-14 07:38] LABS: Hematocrit 21 % (35-47); Mean Corpuscular HGB Conc 33 g/dl (31-36); Mean Corpuscular Hemoglobin 29 pg (27-31); Mean Corpuscular Volume 89 fL (80-97); Mean Platelet Volume 7 um3 (7.4-10.4); Red Blood Count 2.39 10^6/ul (4.0-5.4); Red Cell Distribution Width 17 % (10.5-15); White Blood Count 2.4 10^3/ul (3.5-10.8)
[2017-04-14 07:39] LABS: Add Diff/Slide Review? Slide Review Added; Comments Flag Yes
[2017-04-14 07:47] LABS: BUN/Creatinine Ratio 19.4 (8-20); EGFR African American 31.9 (>60); EGFR Non-African American 24.8 (>60); Potassium 5.1 mmol/L (3.5-5.0)
--- NOTE | 2017-04-14 08:04 | PN ---
Subjective Date of Service: 04/13/17 Interval History: Feeling better. No new c/o. Family History: Unchanged from Admission Social History: Unchanged from Admission Past Medical History: Unchanged from Admission Objective Active Medications: Dextrose (D50w Syringe 50 Ml*) 12.5 gm IV PUSH .FOR FS < 60 - SS PRN PRN Reason: FS < 60 Famotidine (Pepcid Tab*) 20 mg PO DAILY [facility] Last Admin: 04/13/17 08:58 Dose: 20 mg Heparin Sodium (Porcine) (Heparin Vial(*)) 5,000 units SUBCUT Q8HR [facility] Last Admin: 04/14/17 06:20 Dose: 5,000 units Heparin Sodium (Porcine) (Heparin Flush Picc/Ml/Cvc(*)) 1 - 3 ml FLUSH 0600, 1800 [facility] PRN Reason: Protocol Last Admin: 04/14/17 06:20 Dose: 2 ml Insulin Human Lispro (Humalog*) 0 units SUBCUT ACHS [facility] PRN Reason: Protocol Last Admin: 04/13/17 21:06 Dose: 2 units Metoprolol Tartrate (Lopressor Tab*) 100 mg PO BID [facility] Last Admin: 04/13/17 21:11 Dose: 100 mg Ondansetron HCl (Zofran Odt Tab*) 4 mg SL Q6H PRN PRN Reason: NAUSEA/VOMITING Last Admin: 04/13/17 14:02 Dose: 4 mg Ondansetron HCl (Zofran Inj*) 4 mg IV Q4H PRN PRN Reason: NAUSEA Last Admin: 04/13/17 17:42 Dose: 4 mg Oxycodone HCl (Roxycodone Tab*) 5 mg PO Q3H PRN PRN Reason: PAIN Last Admin: 04/14/17 04:11 Dose: 5 mg Sodium Polystyrene Sulfonate (Kayexalate Oral.Mary*) 15 gm PO Q6H [facility] Last Admin: 04/14/17 04:16 Dose: Not Given Vital Signs 04/13/17 04/13/17 04/13/17 08:59 09:59 12:53 Temperature 97.9 F Pulse Rate 109 Respiratory 18 15 14 Rate Blood Pressure 154/87 (mmHg) O2 Sat by Pulse 100 Oximetry 04/13/17 04/13/17 04/13/17 13:06 15:06 15:22 Temperature 98.0 F Pulse Rate 128 Respiratory 15 17 18 Rate Blood Pressure 151/88 (mmHg) O2 Sat by Pulse 91 Oximetry 04/13/17 04/13/17 04/13/17 17:47 19:22 19:47 Temperature 97.9 F Pulse Rate 119 Respiratory 17 20 16 Rate Blood Pressure 143/86 (mmHg) O2 Sat by Pulse 89 Oximetry 04/13/17 04/13/17 04/13/17 21:07 21:19 23:07 Temperature Pulse Rate Respiratory 18 18 20 Rate Blood Pressure (mmHg) O2 Sat by Pulse Oximetry 04/13/17 04/14/17 04/14/17 23:15 04:11 05:21 Temperature 97.7 F 97.5 F Pulse Rate 107 96 Respiratory 16 20 16 Rate Blood Pressure 141/78 137/73 (mmHg) O2 Sat by Pulse 99 99 Oximetry 04/14/17 06:11 Temperature Pulse Rate Respiratory 18 Rate Blood Pressure (mmHg) O2 Sat by Pulse Oximetry Oxygen Devices in Use Now: None Appearance: Alert, partly up in bed. In good spirits. Looks comfortable. Eyes: No Scleral Icterus Neck: NL Appearance and Movements; NL JVP, No Thyroid Enlargement, Masses Respiratory: Symmetrical Chest Expansion and Respiratory Effort, Clear to Auscultation, Clear to Percussion Cardiovascular: NL Sounds; No Murmurs; No JVD, RRR, No Edema, - Abdominal: - - obese/distended. nl BS. not tender. Extremities: No Edema, No Clubbing, Cyanosis, - Skin: No Rash or Ulcers, No Nodules or Sclerosis, - Neurological: Alert and Oriented x 3, NL Sensation Result Diagrams: 04/14/17 07:25 04/14/17 07:25 Additional Lab and Data: Lab Results 04/07/17 04/07/17 04/07/17 Range/Units 17:30 17:30 17:30 WBC 3.9 (3.5-10.8) 10^3/ul RBC 3.83 L (4.0-5.4) 10^6/ul Hgb 11.1 L (12.0-16.0) g/dl Hct 34 L (35-47) % MCV 90 (80-97) fL MCH 29 (27-31) pg MCHC 32 (31-36) g/dl RDW 17 H (10.5-15) % Plt Count 194 (150-450) 10^3/ul MPV 8 (7.4-10.4) um3 Neut % (Auto) 67.3 (38-83) % Lymph % (Auto) 23.4 L (25-47) % [place] % (Auto) 8.4 (1-9) % Eos % (Auto) 0.5 (0-6) % Baso % (Auto) 0.4 (0-2) % Absolute Neuts (auto) 2.6 (1.5-7.7) 10^3/ul Absolute Lymphs (auto) 0.9 L (1.0-4.8) 10^3/ul Absolute Monos (auto) 0.3 (0-0.8) 10^3/ul Absolute Eos (auto) 0 (0-0.6) 10^3/ul Absolute Basos (auto) 0 (0-0.2) 10^3/ul Absolute Nucleated RBC 0 10^3/ul Nucleated RBC % 0 INR (Anticoag Therapy) 1.35 H (0.89-1.11) APTT 44.8 H (26.0-36.3) seconds Sodium 130 L (133-145) mmol/L Potassium 6.5 H* (3.5-5.0) mmol/L Chloride 108 (101-111) mmol/L Carbon Dioxide 20 L (22-32) mmol/L Anion Gap 2 (2-11) mmol/L BUN 21 (6-24) mg/dL Creatinine 1.50 H (0.51-0.95) mg/dL Est GFR ( Amer) 46.0 (>60) Est GFR (Non-Af Amer) 35.8 (>60) BUN/Creatinine Ratio 14.0 (8-20) Glucose 132 H (70-100) mg/dL Lactic Acid (0.5-2.0) mmol/L Calcium 8.9 (8.6-10.3) mg/dL Magnesium 1.1 L (1.9-2.7) mg/dL Total Bilirubin 0.40 (0.2-1.0) mg/dL AST 17 (13-39) U/L ALT 6 L (7-52) U/L Alkaline Phosphatase 74 (34-104) U/L Ammonia (16-53) mol/L Total Creatine Kinase 16 (10-223) U/L CK-MB (CK-2) 4.3 (0.6-6.3) ng/mL Troponin I 0.03 (<0.04) ng/mL C-Reactive Protein 14.60 H (< 5.00) mg/L B-Natriuretic Peptide ( - 100) pg/mL Total Protein 5.7 L (6.4-8.9) g/dL Albumin 2.4 L (3.2-5.2) g/dL Globulin 3.3 (2-4) g/dL Albumin/Globulin Ratio 0.7 L (1-3) Lipase 15 (11.0-82.0) U/L TSH 2.33 (0.34-5.60) mcIU/mL Digoxin 2.6 H* (0.8-2.0) ng/ml Salicylates < 2.50 (<30) mg/dL Acetaminophen < 15 mcg/mL Serum Alcohol < 10 (<10) mg/dL 04/07/17 04/07/17 Range/Units 17:30 17:30 WBC (3.5-10.8) 10^3/ul RBC (4.0-5.4) 10^6/ul Hgb (12.0-16.0) g/dl Hct (35-47) % MCV (80-97) fL MCH (27-31) pg MCHC (31-36) g/dl RDW (10.5-15) % Plt Count (150-450) 10^3/ul MPV (7.4-10.4) um3 Neut % (Auto) (38-83) % Lymph % (Auto) (25-47) % [place] % (Auto) (1-9) % Eos % (Auto) (0-6) % Baso % (Auto) (0-2) % Absolute Neuts (auto) (1.5-7.7) 10^3/ul Absolute Lymphs (auto) (1.0-4.8) 10^3/ul Absolute Monos (auto) (0-0.8) 10^3/ul Absolute Eos (auto) (0-0.6) 10^3/ul Absolute Basos (auto) (0-0.2) 10^3/ul Absolute Nucleated RBC 10^3/ul Nucleated RBC % INR (Anticoag Therapy) (0.89-1.11) APTT (26.0-36.3) seconds Sodium (133-145) mmol/L Potassium (3.5-5.0) mmol/L Chloride (101-111) mmol/L Carbon Dioxide (22-32) mmol/L Anion Gap (2-11) mmol/L BUN (6-24) mg/dL Creatinine (0.51-0.95) mg/dL Est GFR ( Amer) (>60) Est GFR (Non-Af Amer) (>60) BUN/Creatinine Ratio (8-20) Glucose (70-100) mg/dL Lactic Acid 1.2 (0.5-2.0) mmol/L Calcium (8.6-10.3) mg/dL Magnesium (1.9-2.7) mg/dL Total Bilirubin (0.2-1.0) mg/dL AST (13-39) U/L ALT (7-52) U/L Alkaline Phosphatase (34-104) U/L Ammonia 41 (16-53) mol/L Total Creatine Kinase (10-223) U/L CK-MB (CK-2) (0.6-6.3) ng/mL Troponin I (<0.04) ng/mL C-Reactive Protein (< 5.00) mg/L B-Natriuretic Peptide 950 H ( - 100) pg/mL Total Protein (6.4-8.9) g/dL Albumin (3.2-5.2) g/dL Globulin (2-4) g/dL Albumin/Globulin Ratio (1-3) Lipase (11.0-82.0) U/L TSH (0.34-5.60) mcIU/mL Digoxin (0.8-2.0) ng/ml Salicylates (<30) mg/dL Acetaminophen mcg/mL Serum Alcohol (<10) mg/dL Microbiology and Other Data: Microbiology 04/07/17 20:10 Nasal Screen MRSA (PCR)([facility]) - Final Nasal Mrsa Negative Assess/Plan/Problems-Billing Ms Evangelista is a 57 yo F who has had a complicated post op course following partial colectomy for colon cancer who was admitted to [facility] for the second time this month now with altered mental status and was found to have digoxin toxicity. - Patient Problems (1) Altered mental state Current Visit: Yes Status: Acute Code(s): R41.82 - ALTERED MENTAL STATUS, UNSPECIFIED SNOMED Code(s): 220498803 Comment: Ammonia level 41 on 04/10/81. As long as mental state at baseline will hold on lactulose, re-check ammonia at some point. (2) Digoxin toxicity Current Visit: Yes Status: Acute Code(s): T46.0X1A - POISONING BY CARDI- STIM GLYCOS/DRUG SIMLAR ACT, ACC, INIT SNOMED Code(s): 08830630 Comment: Resolved. (3) Acute renal failure (ARF) Current Visit: Yes Status: Acute Comment: Slowly rising creatinine. Remove Be. BMP 04/14. (4) CAD (coronary artery disease) Current Visit: Yes Status: Acute Code(s): I25.10 - ATHSCL HEART DISEASE OF [place] CORONARY ARTERY W/O ANG PCTRS SNOMED Code(s): 25607131 Comment: Continue ASA and metoprolol. No c/o chest pain at this time. (5) Diabetes Current Visit: Yes Status: Acute Code(s): E11.9 - TYPE 2 DIABETES MELLITUS WITHOUT COMPLICATIONS SNOMED Code(s): 01126072 Comment: Adequate glycemic control. Continue Lispro SS q 4 hr. Hold metformin. (6) Hypomagnesemia Current Visit: Yes Status: Acute Code(s): E83.42 - HYPOMAGNESEMIA SNOMED Code(s): 940947275 Comment: 2 gm mag IV given in ED. Mag level 2.3 on 04/10/17. (7) Decubitus ulcer Current Visit: Yes Status: Acute Code(s): L89.90 - PRESSURE ULCER OF UNSPECIFIED SITE, UNSPECIFIED STAGE SNOMED Code(s): 281593531 Comment: Stage II decubitus is noted on exam. The drain has been removed so I expect she will have improvement in the wound.
[2017-04-14 08:10] LABS: Add Path Review? YES; Hypochromasia 2+; Immature Granulocytes 2 % (0-9); Neutrophil % 65 % (38-83); Reactive Lymph % 1 % (0-6)
--- NOTE | 2017-04-14 08:23 | PN ---
Subjective Date of Service: 04/14/17 Interval History: Poor appetite. Walks to with some help. No new c/o. Family History: Unchanged from Admission Social History: Unchanged from Admission Past Medical History: Unchanged from Admission Objective Active Medications: Dextrose (D50w Syringe 50 Ml*) 12.5 gm IV PUSH .FOR FS < 60 - SS PRN PRN Reason: FS < 60 Famotidine (Pepcid Tab*) 20 mg PO DAILY [facility] Last Admin: 04/13/17 08:58 Dose: 20 mg Heparin Sodium (Porcine) (Heparin Vial(*)) 5,000 units SUBCUT Q8HR [facility] Last Admin: 04/14/17 06:20 Dose: 5,000 units Heparin Sodium (Porcine) (Heparin Flush Picc/Ml/Cvc(*)) 1 - 3 ml FLUSH 0600, 1800 [facility] PRN Reason: Protocol Last Admin: 04/14/17 06:20 Dose: 2 ml Insulin Human Lispro (Humalog*) 0 units SUBCUT ACHS [facility] PRN Reason: Protocol Last Admin: 04/13/17 21:06 Dose: 2 units Metoprolol Tartrate (Lopressor Tab*) 100 mg PO BID [facility] Last Admin: 04/13/17 21:11 Dose: 100 mg Ondansetron HCl (Zofran Odt Tab*) 4 mg SL Q6H PRN PRN Reason: NAUSEA/VOMITING Last Admin: 04/13/17 14:02 Dose: 4 mg Ondansetron HCl (Zofran Inj*) 4 mg IV Q4H PRN PRN Reason: NAUSEA Last Admin: 04/13/17 17:42 Dose: 4 mg Oxycodone HCl (Roxycodone Tab*) 5 mg PO Q3H PRN PRN Reason: PAIN Last Admin: 04/14/17 04:11 Dose: 5 mg Sodium Polystyrene Sulfonate (Kayexalate Oral.Mary*) 15 gm PO Q6H [facility] Last Admin: 04/14/17 04:16 Dose: Not Given Vital Signs 04/13/17 04/13/17 04/13/17 08:59 09:59 12:53 Temperature 97.9 F Pulse Rate 109 Respiratory 18 15 14 Rate Blood Pressure 154/87 (mmHg) O2 Sat by Pulse 100 Oximetry 08/01/17 08/01/17 08/01/17 13:06 15:06 15:22 Temperature 98.0 F Pulse Rate 128 Respiratory 15 17 18 Rate Blood Pressure 151/88 (mmHg) O2 Sat by Pulse 91 Oximetry 04/13/17 04/13/17 04/13/17 17:47 19:22 19:47 Temperature 97.9 F Pulse Rate 119 Respiratory 17 20 16 Rate Blood Pressure 143/86 (mmHg) O2 Sat by Pulse 89 Oximetry 04/13/17 04/13/17 04/13/17 21:07 21:19 23:07 Temperature Pulse Rate Respiratory 18 18 20 Rate Blood Pressure (mmHg) O2 Sat by Pulse Oximetry 04/13/17 04/14/17 04/14/17 23:15 04:11 05:21 Temperature 97.7 F 97.5 F Pulse Rate 107 96 Respiratory 16 20 16 Rate Blood Pressure 141/78 137/73 (mmHg) O2 Sat by Pulse 99 99 Oximetry 04/14/17 06:11 Temperature Pulse Rate Respiratory 18 Rate Blood Pressure (mmHg) O2 Sat by Pulse Oximetry Oxygen Devices in Use Now: None Appearance: Alert, partly up in bed. In fair spirits. Looks comfortable. Eyes: No Scleral Icterus Neck: NL Appearance and Movements; NL JVP, No Thyroid Enlargement, Masses Abdominal: NL Sounds; No Tenderness; No Distention, No Hepatosplenomegaly, - Extremities: No Clubbing, Cyanosis, - - 1-2+ pedal edema, 1+ hand edema BL Skin: No Nodules or Sclerosis, - - R back decubitus from drain valve much improved, healing from bottom. Neurological: Alert and Oriented x 3, NL Sensation Result Diagrams: 04/14/17 07:25 04/14/17 07:25 Additional Lab and Data: Lab Results 04/07/17 04/07/17 04/07/17 Range/Units 17:30 17:30 17:30 WBC 3.9 (3.5-10.8) 10^3/ul RBC 3.83 L (4.0-5.4) 10^6/ul Hgb 11.1 L (12.0-16.0) g/dl Hct 34 L (35-47) % MCV 90 (80-97) fL MCH 29 (27-31) pg MCHC 32 (31-36) g/dl RDW 17 H (10.5-15) % Plt Count 194 (150-450) 10^3/ul MPV 8 (7.4-10.4) um3 Neut % (Auto) 67.3 (38-83) % Lymph % (Auto) 23.4 L (25-47) % [place] % (Auto) 8.4 (1-9) % Eos % (Auto) 0.5 (0-6) % Baso % (Auto) 0.4 (0-2) % Absolute Neuts (auto) 2.6 (1.5-7.7) 10^3/ul Absolute Lymphs (auto) 0.9 L (1.0-4.8) 10^3/ul Absolute Monos (auto) 0.3 (0-0.8) 10^3/ul Absolute Eos (auto) 0 (0-0.6) 10^3/ul Absolute Basos (auto) 0 (0-0.2) 10^3/ul Absolute Nucleated RBC 0 10^3/ul Nucleated RBC % 0 INR (Anticoag Therapy) 1.35 H (0.89-1.11) APTT 44.8 H (26.0-36.3) seconds Sodium 130 L (133-145) mmol/L Potassium 6.5 H* (3.5-5.0) mmol/L Chloride 108 (101-111) mmol/L Carbon Dioxide 20 L (22-32) mmol/L Anion Gap 2 (2-11) mmol/L BUN 21 (6-24) mg/dL Creatinine 1.50 H (0.51-0.95) mg/dL Est GFR ( Amer) 46.0 (>60) Est GFR (Non-Af Amer) 35.8 (>60) BUN/Creatinine Ratio 14.0 (8-20) Glucose 132 H (70-100) mg/dL Lactic Acid (0.5-2.0) mmol/L Calcium 8.9 (8.6-10.3) mg/dL Magnesium 1.1 L (1.9-2.7) mg/dL Total Bilirubin 0.40 (0.2-1.0) mg/dL AST 17 (13-39) U/L ALT 6 L (7-52) U/L Alkaline Phosphatase 74 (34-104) U/L Ammonia (16-53) mol/L Total Creatine Kinase 16 (10-223) U/L CK-MB (CK-2) 4.3 (0.6-6.3) ng/mL Troponin I 0.03 (<0.04) ng/mL C-Reactive Protein 14.60 H (< 5.00) mg/L B-Natriuretic Peptide ( - 100) pg/mL Total Protein 5.7 L (6.4-8.9) g/dL Albumin 2.4 L (3.2-5.2) g/dL Globulin 3.3 (2-4) g/dL Albumin/Globulin Ratio 0.7 L (1-3) Lipase 15 (11.0-82.0) U/L TSH 2.33 (0.34-5.60) mcIU/mL Digoxin 2.6 H* (0.8-2.0) ng/ml Salicylates < 2.50 (<30) mg/dL Acetaminophen < 15 mcg/mL Serum Alcohol < 10 (<10) mg/dL 04/07/17 04/07/17 Range/Units 17:30 17:30 WBC (3.5-10.8) 10^3/ul RBC (4.0-5.4) 10^6/ul Hgb (12.0-16.0) g/dl Hct (35-47) % MCV (80-97) fL MCH (27-31) pg MCHC (31-36) g/dl RDW (10.5-15) % Plt Count (150-450) 10^3/ul MPV (7.4-10.4) um3 Neut % (Auto) (38-83) % Lymph % (Auto) (25-47) % [place] % (Auto) (1-9) % Eos % (Auto) (0-6) % Baso % (Auto) (0-2) % Absolute Neuts (auto) (1.5-7.7) 10^3/ul Absolute Lymphs (auto) (1.0-4.8) 10^3/ul Absolute Monos (auto) (0-0.8) 10^3/ul Absolute Eos (auto) (0-0.6) 10^3/ul Absolute Basos (auto) (0-0.2) 10^3/ul Absolute Nucleated RBC 10^3/ul Nucleated RBC % INR (Anticoag Therapy) (0.89-1.11) APTT (26.0-36.3) seconds Sodium (133-145) mmol/L Potassium (3.5-5.0) mmol/L Chloride (101-111) mmol/L Carbon Dioxide (22-32) mmol/L Anion Gap (2-11) mmol/L BUN (6-24) mg/dL Creatinine (0.51-0.95) mg/dL Est GFR ( Amer) (>60) Est GFR (Non-Af Amer) (>60) BUN/Creatinine Ratio (8-20) Glucose (70-100) mg/dL Lactic Acid 1.2 (0.5-2.0) mmol/L Calcium (8.6-10.3) mg/dL Magnesium (1.9-2.7) mg/dL Total Bilirubin (0.2-1.0) mg/dL AST (13-39) U/L ALT (7-52) U/L Alkaline Phosphatase (34-104) U/L Ammonia 41 (16-53) mol/L Total Creatine Kinase (10-223) U/L CK-MB (CK-2) (0.6-6.3) ng/mL Troponin I (<0.04) ng/mL C-Reactive Protein (< 5.00) mg/L B-Natriuretic Peptide 950 H ( - 100) pg/mL Total Protein (6.4-8.9) g/dL Albumin (3.2-5.2) g/dL Globulin (2-4) g/dL Albumin/Globulin Ratio (1-3) Lipase (11.0-82.0) U/L TSH (0.34-5.60) mcIU/mL Digoxin (0.8-2.0) ng/ml Salicylates (<30) mg/dL Acetaminophen mcg/mL Serum Alcohol (<10) mg/dL Microbiology and Other Data: Microbiology 04/07/17 20:10 Nasal Screen MRSA (PCR)(RADHA) - Final Nasal Mrsa Negative Assess/Plan/Problems-Billing Ms Evangelista is a 57 yo F who has had a complicated post op course following partial colectomy for colon cancer who was admitted to [facility] for the second time this month now with altered mental status and was found to have digoxin toxicity. - Patient Problems (1) Altered mental state Current Visit: Yes Status: Acute Code(s): R41.82 - ALTERED MENTAL STATUS, UNSPECIFIED SNOMED Code(s): 266317058 Comment: Ammonia level 41 on 04/10/81. As long as mental state at baseline will hold on lactulose, re-check ammonia at some point. (2) Digoxin toxicity Current Visit: Yes Status: Acute Code(s): T46.0X1A - POISONING BY CARDI- STIM GLYCOS/DRUG SIMLAR ACT, ACC, INIT SNOMED Code(s): 81324595 Comment: Resolved. (3) Acute renal failure (ARF) Current Visit: Yes Status: Acute Comment: Slowly rising creatinine. Check PVR by bladder scan. BMP 04/15. Received 2 doses Kayexalate 15 gm each 04/13. (4) CAD (coronary artery disease) Current Visit: Yes Status: Acute Code(s): I25.10 - ATHSCL HEART DISEASE OF [place] CORONARY ARTERY W/O ANG PCTRS SNOMED Code(s): 23603019 Comment: Continue ASA and metoprolol. No c/o chest pain at this time. (5) Diabetes Current Visit: Yes Status: Acute Code(s): E11.9 - TYPE 2 DIABETES MELLITUS WITHOUT COMPLICATIONS SNOMED Code(s): 55094253 Comment: Adequate glycemic control. Continue Lispro SS q 4 hr. Hold metformin. (6) Hypomagnesemia Current Visit: Yes Status: Acute Code(s): E83.42 - HYPOMAGNESEMIA SNOMED Code(s): 795116451 Comment: 2 gm mag IV given in ED. Mag level 2.3 on 04/10/17. (7) Decubitus ulcer Current Visit: Yes Status: Acute Code(s): L89.90 - PRESSURE ULCER OF UNSPECIFIED SITE, UNSPECIFIED STAGE SNOMED Code(s): 208573982 Comment: Decubitus from drain valve much improved. (8) Debility Current Visit: Yes Status: Acute Code(s): R53.81 - OTHER MALAISE SNOMED Code(s): 42652751 Comment: Continue PT.
[2017-04-14] MEDS: Insulin LISPRO* 1 UNITS UNIT SUBCUT SCH ×4 (08:33→20:26)
[2017-04-14] MEDS: Famotidine TAB* 20 MG PO SCH (09:16)
[2017-04-14] MEDS: Metoprolol Tartrate TAB* 100 MG TAB PO SCH ×2 (09:16→20:25)
[2017-04-14] MEDS: Omeprazole CAP* 20 MG PO SCH (11:52)
[2017-04-14] MEDS: Morphine INJ* 2 MG/ML 1 ML SYRINGE IV PRN ×3 (11:52→18:47)
[2017-04-14] MEDS ORDERED: Furosemide IV* 10 MG/ML 2 ML VIAL (20 MG) IV ONE (12:47)
--- NOTE | 2017-04-14 13:04 | PN ---
Progress Note - Progress Note Date of Service: 04/14/17 Note: Patient has not voided all day. Bladder volume 13 ml by scan. Furosemide ordered to try to relieve her total body edema.
[2017-04-14] MEDS ORDERED: Furosemide IV* 10 MG/ML VIAL (40 MG) IV SCH (16:00)
[2017-04-14] MEDS: Ondansetron INJ* 2 MG/ML VIAL IV PRN (21:58)
[2017-04-15] MEDS: oxyCODONE TAB* 5 MG TAB PO PRN (02:59)
[2017-04-15] MEDS: Heparin VIAL(*) 5000 UNITS/ML VIAL (FIVE THOUSAND) SUBCUT SCH (05:37)
[2017-04-15] MEDS: Omeprazole CAP* 20 MG PO SCH (05:38)
[2017-04-15 06:29] LABS: Hematocrit 27 % (35-47); Hemoglobin 9.1 g/dl (12.0-16.0); Mean Corpuscular HGB Conc 34 g/dl (31-36); Mean Corpuscular Hemoglobin 30 pg (27-31); Mean Corpuscular Volume 88 fL (80-97); Mean Platelet Volume 7 um3 (7.4-10.4); Red Blood Count 3.08 10^6/ul (4.0-5.4); Red Cell Distribution Width 17 % (10.5-15)
[2017-04-15 06:31] LABS: Add Diff/Slide Review? Manual Diff Added; Comments Flag Yes
[2017-04-15 06:39] LABS: BUN/Creatinine Ratio 19.4 (8-20); Calcium 8.9 mg/dL (8.6-10.3); EGFR African American 30.2 (>60); EGFR Non-African American 23.5 (>60); Potassium 5.1 mmol/L (3.5-5.0)
[2017-04-15 07:16] VITALS: BP 150/83
[2017-04-15 07:27] LABS: Eosinophils % 1 % (0-6); Immature Granulocytes 1 % (0-9); Neutrophil % 63 % (38-83)
[2017-04-15 07:29] LABS: Add Path Review? YES
[2017-04-15] MEDS ORDERED: Metolazone TAB* 5 MG PO ONE (08:31)
[2017-04-15] MEDS ORDERED: Furosemide IV* 10 MG/ML VIAL (40 MG) IV ONE (08:40)
[2017-04-15] MEDS: Insulin LISPRO* 1 UNITS UNIT SUBCUT SCH ×2 (08:45→13:12)
[2017-04-15] MEDS ORDERED: Ondansetron ODT TAB* 4 MG SL PRN (08:48)
--- NOTE | 2017-04-15 08:48 | DCNOTE ---
Subjective Date of Service: 04/15/17 Interval History: Poor appetite. No new c/o. Her daughter reports that the patient had green emesis last evening. Family History: Unchanged from Admission Social History: Unchanged from Admission Past Medical History: Unchanged from Admission Objective Active Medications: Dextrose (D50w Syringe 50 Ml*) 12.5 gm IV PUSH .FOR FS < 60 - SS PRN PRN Reason: FS < 60 Famotidine (Pepcid Tab*) 20 mg PO DAILY [facility] Last Admin: 04/14/17 09:16 Dose: 20 mg Furosemide (Lasix Iv*) 80 mg IV ONCE ONE Stop: 04/15/17 08:41 Heparin Sodium (Porcine) (Heparin Vial(*)) 5,000 units SUBCUT Q8HR [facility] Last Admin: 04/15/17 05:37 Dose: 5,000 units Heparin Sodium (Porcine) (Heparin Flush Picc/Ml/Cvc(*)) 1 - 3 ml FLUSH 0600, 1800 [facility] PRN Reason: Protocol Last Admin: 04/15/17 05:32 Dose: 2 ml Insulin Human Lispro (Humalog*) 0 units SUBCUT ACHS [facility] PRN Reason: Protocol Last Admin: 04/14/17 20:26 Dose: 1 units Metoprolol Tartrate (Lopressor Tab*) 100 mg PO BID [facility] Last Admin: 04/14/17 20:25 Dose: 100 mg Morphine Sulfate (Morphine Inj (Syringe)*) 2 mg IV Q3H PRN PRN Reason: PAIN - MILD Last Admin: 04/14/17 18:47 Dose: 2 mg Omeprazole (Prilosec Cap*) 20 mg PO 0600 [facility] Last Admin: 04/15/17 05:38 Dose: 20 mg Ondansetron HCl (Zofran Odt Tab*) 4 mg SL Q6H PRN PRN Reason: NAUSEA/VOMITING Last Admin: 04/13/17 14:02 Dose: 4 mg Ondansetron HCl (Zofran Inj*) 4 mg IV Q4H PRN PRN Reason: NAUSEA Last Admin: 04/14/17 21:58 Dose: 4 mg Oxycodone HCl (Roxycodone Tab*) 5 mg PO Q3H PRN PRN Reason: PAIN Last Admin: 04/15/17 02:59 Dose: 5 mg Vital Signs 04/14/17 04/14/17 04/14/17 09:16 11:05 11:16 Temperature 97.8 F Pulse Rate 93 Respiratory 16 16 14 Rate Blood Pressure 148/80 (mmHg) O2 Sat by Pulse 93 Oximetry 04/14/17 04/14/17 04/14/17 11:52 12:52 13:54 Temperature 97.6 F Pulse Rate 92 Respiratory 16 16 16 Rate Blood Pressure 147/79 (mmHg) O2 Sat by Pulse 95 Oximetry 04/14/17 04/14/17 04/14/17 15:12 15:31 16:31 Temperature 97.6 F Pulse Rate 97 Respiratory 16 16 16 Rate Blood Pressure 161/87 (mmHg) O2 Sat by Pulse 100 Oximetry 04/14/17 04/14/17 04/14/17 17:31 18:31 18:47 Temperature Pulse Rate Respiratory 16 16 16 Rate Blood Pressure (mmHg) O2 Sat by Pulse Oximetry 04/14/17 04/14/17 04/14/17 19:30 19:31 19:47 Temperature 97.8 F Pulse Rate 96 Respiratory 16 16 16 Rate Blood Pressure 142/77 (mmHg) O2 Sat by Pulse 94 Oximetry 04/14/17 04/14/17 04/15/17 20:00 23:40 02:59 Temperature 97.9 F Pulse Rate 99 Respiratory 18 16 16 Rate Blood Pressure 147/84 (mmHg) O2 Sat by Pulse 93 Oximetry 04/15/17 04/15/17 04/15/17 03:43 04:59 07:14 Temperature 97.6 F 98.1 F Pulse Rate 91 93 Respiratory 16 16 18 Rate Blood Pressure 143/85 150/83 (mmHg) O2 Sat by Pulse 95 94 Oximetry Oxygen Devices in Use Now: None Appearance: Alert, partly up in bed. In good spirits. Looks comfortable. Eyes: No Scleral Icterus Extremities: No Clubbing, Cyanosis, - - 1+ edema LE's and UE's Skin: No Rash or Ulcers, No Nodules or Sclerosis, - Neurological: Alert and Oriented x 3, NL Sensation Result Diagrams: 04/15/17 05:20 04/15/17 05:20 Additional Lab and Data: Lab Results 04/07/17 04/07/17 04/07/17 Range/Units 17:30 17:30 17:30 WBC 3.9 (3.5-10.8) 10^3/ul RBC 3.83 L (4.0-5.4) 10^6/ul Hgb 11.1 L (12.0-16.0) g/dl Hct 34 L (35-47) % MCV 90 (80-97) fL MCH 29 (27-31) pg MCHC 32 (31-36) g/dl RDW 17 H (10.5-15) % Plt Count 194 (150-450) 10^3/ul MPV 8 (7.4-10.4) um3 Neut % (Auto) 67.3 (38-83) % Lymph % (Auto) 23.4 L (25-47) % [place] % (Auto) 8.4 (1-9) % Eos % (Auto) 0.5 (0-6) % Baso % (Auto) 0.4 (0-2) % Absolute Neuts (auto) 2.6 (1.5-7.7) 10^3/ul Absolute Lymphs (auto) 0.9 L (1.0-4.8) 10^3/ul Absolute Monos (auto) 0.3 (0-0.8) 10^3/ul Absolute Eos (auto) 0 (0-0.6) 10^3/ul Absolute Basos (auto) 0 (0-0.2) 10^3/ul Absolute Nucleated RBC 0 10^3/ul Nucleated RBC % 0 INR (Anticoag Therapy) 1.35 H (0.89-1.11) APTT 44.8 H (26.0-36.3) seconds Sodium 130 L (133-145) mmol/L Potassium 6.5 H* (3.5-5.0) mmol/L Chloride 108 (101-111) mmol/L Carbon Dioxide 20 L (22-32) mmol/L Anion Gap 2 (2-11) mmol/L BUN 21 (6-24) mg/dL Creatinine 1.50 H (0.51-0.95) mg/dL Est GFR ( Amer) 46.0 (>60) Est GFR (Non-Af Amer) 35.8 (>60) BUN/Creatinine Ratio 14.0 (8-20) Glucose 132 H (70-100) mg/dL Lactic Acid (0.5-2.0) mmol/L Calcium 8.9 (8.6-10.3) mg/dL Magnesium 1.1 L (1.9-2.7) mg/dL Total Bilirubin 0.40 (0.2-1.0) mg/dL AST 17 (13-39) U/L ALT 6 L (7-52) U/L Alkaline Phosphatase 74 (34-104) U/L Ammonia (16-53) mol/L Total Creatine Kinase 16 (10-223) U/L CK-MB (CK-2) 4.3 (0.6-6.3) ng/mL Troponin I 0.03 (<0.04) ng/mL C-Reactive Protein 14.60 H (< 5.00) mg/L B-Natriuretic Peptide ( - 100) pg/mL Total Protein 5.7 L (6.4-8.9) g/dL Albumin 2.4 L (3.2-5.2) g/dL Globulin 3.3 (2-4) g/dL Albumin/Globulin Ratio 0.7 L (1-3) Lipase 15 (11.0-82.0) U/L TSH 2.33 (0.34-5.60) mcIU/mL Digoxin 2.6 H* (0.8-2.0) ng/ml Salicylates < 2.50 (<30) mg/dL Acetaminophen < 15 mcg/mL Serum Alcohol < 10 (<10) mg/dL 04/07/17 04/07/17 Range/Units 17:30 17:30 WBC (3.5-10.8) 10^3/ul RBC (4.0-5.4) 10^6/ul Hgb (12.0-16.0) g/dl Hct (35-47) % MCV (80-97) fL MCH (27-31) pg MCHC (31-36) g/dl RDW (10.5-15) % Plt Count (150-450) 10^3/ul MPV (7.4-10.4) um3 Neut % (Auto) (38-83) % Lymph % (Auto) (25-47) % [place] % (Auto) (1-9) % Eos % (Auto) (0-6) % Baso % (Auto) (0-2) % Absolute Neuts (auto) (1.5-7.7) 10^3/ul Absolute Lymphs (auto) (1.0-4.8) 10^3/ul Absolute Monos (auto) (0-0.8) 10^3/ul Absolute Eos (auto) (0-0.6) 10^3/ul Absolute Basos (auto) (0-0.2) 10^3/ul Absolute Nucleated RBC 10^3/ul Nucleated RBC % INR (Anticoag Therapy) (0.89-1.11) APTT (26.0-36.3) seconds Sodium (133-145) mmol/L Potassium (3.5-5.0) mmol/L Chloride (101-111) mmol/L Carbon Dioxide (22-32) mmol/L Anion Gap (2-11) mmol/L BUN (6-24) mg/dL Creatinine (0.51-0.95) mg/dL Est GFR ( Amer) (>60) Est GFR (Non-Af Amer) (>60) BUN/Creatinine Ratio (8-20) Glucose (70-100) mg/dL Lactic Acid 1.2 (0.5-2.0) mmol/L Calcium (8.6-10.3) mg/dL Magnesium (1.9-2.7) mg/dL Total Bilirubin (0.2-1.0) mg/dL AST (13-39) U/L ALT (7-52) U/L Alkaline Phosphatase (34-104) U/L Ammonia 41 (16-53) mol/L Total Creatine Kinase (10-223) U/L CK-MB (CK-2) (0.6-6.3) ng/mL Troponin I (<0.04) ng/mL C-Reactive Protein (< 5.00) mg/L B-Natriuretic Peptide 950 H ( - 100) pg/mL Total Protein (6.4-8.9) g/dL Albumin (3.2-5.2) g/dL Globulin (2-4) g/dL Albumin/Globulin Ratio (1-3) Lipase (11.0-82.0) U/L TSH (0.34-5.60) mcIU/mL Digoxin (0.8-2.0) ng/ml Salicylates (<30) mg/dL Acetaminophen mcg/mL Serum Alcohol (<10) mg/dL Microbiology and Other Data: Microbiology 04/07/17 20:10 Nasal Screen MRSA (PCR)(RADHA) - Final Nasal Mrsa Negative Assess/Plan/Problems-Billing Ms Evangelista is a 57 yo F who has had a complicated post op course following partial colectomy for colon cancer who was admitted to [facility] [place] the [place] time this month now with altered mental status and was found to have digoxin toxicity. - Patient Problems (1) Altered mental state Current Visit: Yes Status: Acute Code(s): R41.82 - ALTERED MENTAL STATUS, UNSPECIFIED SNOMED Code(s): 640658139 Comment: Ammonia level 41 on 04/10/81. As long as mental state at baseline will hold on lactulose, re-check ammonia if mental status deteriorates. (2) Digoxin toxicity Current Visit: Yes Status: Acute Code(s): T46.0X1A - POISONING BY CARDI- STIM GLYCOS/DRUG SIMLAR ACT, ACC, INIT SNOMED Code(s): 71678436 Comment: Resolved. (3) Acute renal failure (ARF) Current Visit: Yes Status: Acute Comment: Slowly rising creatinine. Check PVR by bladder scan was [address] Butterfield. He will see her every Wednesday and Wednesday. BMP MWF at [facility]. Metolazone 5 mg + torsemide 100 mg po daily, 80 mg IV furosemide today in place of torsemide. Sodium polystyrene 15 gm MWF. (4) CAD (coronary artery disease) Current Visit: Yes Status: Acute Code(s): I25.10 - ATHSCL HEART DISEASE OF [place] CORONARY ARTERY W/O ANG PCTRS SNOMED Code(s): 30998613 Comment: Continue ASA and metoprolol. No c/o chest pain at this time. (5) Diabetes Current Visit: Yes Status: Acute Code(s): E11.9 - TYPE 2 DIABETES MELLITUS WITHOUT COMPLICATIONS SNOMED Code(s): 01748452 Comment: Only gets 1-2 U insulin per day. Can check FS daily at [facility] with parameters. Hold metformin. (6) Hypomagnesemia Current Visit: Yes Status: Acute Code(s): E83.42 - HYPOMAGNESEMIA SNOMED Code(s): 077801016 Comment: 2 gm mag IV given in ED. Mag level 2.3 on 04/10/17. (7) Decubitus ulcer Current Visit: Yes Status: Acute Code(s): L89.90 - PRESSURE ULCER OF UNSPECIFIED SITE, UNSPECIFIED STAGE SNOMED Code(s): 734221442 Comment: Decubitus from drain valve much improved. (8) Debility Current Visit: Yes Status: Acute Code(s): R53.81 - OTHER MALAISE SNOMED Code(s): 38684301 Comment: Continue PT. Status and Disposition: Discharge now. Fup Dr. Greer Charles.
[2017-04-15] MEDS ORDERED: Metolazone TAB* 5 MG PO SCH (09:00)
[2017-04-15] MEDS ORDERED: Torsemide TAB* 100 MG PO SCH (09:00)
[2017-04-15] MEDS: Famotidine TAB* 20 MG PO SCH (10:05)
[2017-04-15] MEDS: Metoprolol Tartrate TAB* 100 MG TAB PO SCH (10:06)
[2017-04-15] MEDS: Morphine INJ* 2 MG/ML 1 ML SYRINGE IV PRN (10:10)
--- NOTE | 2017-04-15 12:48 | TRS ---
CC: Dr. Butterfield * TRANSFER SUMMARY: DATE OF ADMISSION: DATE OF TRANSFER: 04/15/17 HISTORY OF PRESENT ILLNESS: This 57-year-old woman was transferred from [facility] due to confusion, possibly hypotension as well. The history is detailed in the admission note. She was found to have dig toxicity. She received Digibind in the emergency room as well as Kayexalate. Her potassium level was elevated on admission at 6.5. After the initial dose of Kayexalate, her potassium never low as over 5.7 , on the day of transfer it was 5.1. The patient's confusion gradually cleared during her hospital stay. Her ammonia level was mildly elevated at one point. She was given some lactulose. Her ammonia level came back down to normal at 41 on 04/10/17 and lactulose was discontinued. The single elevated value of ammonia was 59. She was evaluated with transthoracic echocardiogram, abdominal and pelvic CT scan, brain CT scan. There were no significant findings from any of these tests. She was evaluated by the surgeon. Her two surgical drains were removed. During the hospital stay, her right back decubitus wound healed significantly and is very minor at this point. The anterior surgical incision wounds are healing slowly and look clean and should heal well with standard topical care. She remains quite debilitated. The main clinical concern at this point is her acute renal failure, felt by Dr. Butterfield to be acute tubular necrosis. For the last 5 days, her creatinine yaneth every day an average of 0.13 mg per day. She did get some more doses of Kayexalate. She developed total body edema. We are going to try her on combination of metolazone and torsemide as an outpatient with an additional dose of and 80 mg IV furosemide on the day of discharge. Dr. Butterfield will see her every Wednesday and Wednesday. She should have a basic metabolic profile and CBC every Wednesday, Wednesday, and Wednesday. She will get Kayexalate 15 g every Wednesday, Wednesday, and Wednesday. Digoxin has been discontinued. In terms of diabetes, she only required 1 to 2 units of coverage a day here. I think she can have her fingersticks checked with parameters. Her metformin is of course on hold. She had some hypomagnesemia, which was corrected. Her magnesium level was 2.3 on 04/10/17. FINAL DIAGNOSES: 1. Digoxin toxicity with altered mental status. 2. Hyperammonemia, resolved. 3. Acute renal failure. 4. Coronary artery disease. 5. Diabetes. 6. Hypomagnesemia, resolved. 7. Decubitus ulcer and surgical wound ulcer. 8. Debility. DISCHARGE MEDICATIONS: 1. Metolazone 5 mg daily. 2. Metoprolol tartrate 100 mg b.i.d. 3. Omeprazole 20 mg daily. 4. Ondansetron ODT 4 mg sublingual every 4 hours p.r.n. 5. Sodium polystyrene 15 g every Wednesday, Wednesday, and Wednesday. 6. Torsemide 100 mg daily. 7. Oxycodone 5 mg every 3 hours p.r.n. 8. Vitamin D 2000 units daily. 9. Fenofibrate 160 mg daily. 10. Atorvastatin 40 mg h.s. 11. Aspirin 81 mg daily. 12. Albuterol sulfate 108 mcg inhalation every 6 hours p.r.n. [id number]/[facility] #: [id number] MTDD
[2017-04-15] MEDS: Ondansetron INJ* 2 MG/ML VIAL IV PRN (13:06)
[2017-04-16] MEDS ORDERED: Sodium Polystyrene ORAL.SOL* 15 GM/60 ML BTL PO SCH (08:46)
== END 2017-04-15 14:00 | DRG 948 ==
LOC: ED 16:14 → ICU 18:41 → MEDTELE 04-08 13:03 → ICU 04-10 13:43 → MED 04-12 12:32
PROVIDERS: ADMIT Internal Medicine; ATTEND Internal Medicine
PROC: 30233N1 Transfusion of Nonautologous Red Blood Cells into Peripheral Vein, Percutaneous Approach (ICD-10-PCS; principal; 2017-04-10)
PROC: 02HV33Z Insertion of Infusion Device into Superior Vena Cava, Percutaneous Approach (ICD-10-PCS; 2017-04-10)
DX: R41.82 Altered mental status, unspecified (principal); R40.2312 Coma scale, best motor response, none, at arrival to emergency department; N17.9 Acute kidney failure, unspecified; J90 Pleural effusion, not elsewhere classified; I11.0 Hypertensive heart disease with heart failure; I95.9 Hypotension, unspecified; L89.312 Pressure ulcer of right buttock, stage 2; E87.2 Acidosis; I50.22 Chronic systolic (congestive) heart failure; E11.9 Type 2 diabetes mellitus without complications; I48.91 Unspecified atrial fibrillation; J44.9 Chronic obstructive pulmonary disease, unspecified; K58.9 Irritable bowel syndrome, unspecified; M19.90 Unspecified osteoarthritis, unspecified site; R40.2142 Coma scale, eyes open, spontaneous, at arrival to emergency department; R40.2242 Coma scale, best verbal response, confused conversation, at arrival to emergency department; I25.10 Atherosclerotic heart disease of native coronary artery without angina pectoris; R10.819 Abdominal tenderness, unspecified site; E83.42 Hypomagnesemia; K86.89 Other specified diseases of pancreas; E87.5 Hyperkalemia; S31.109A Unspecified open wound of abdominal wall, unspecified quadrant without penetration into peritoneal cavity, initial encounter; X58.XXXA Exposure to other specified factors, initial encounter; R53.81 Other malaise; T46.0X5A Adverse effect of cardiac-stimulant glycosides and drugs of similar action, initial encounter; I25.5 Ischemic cardiomyopathy; Z87.891 Personal history of nicotine dependence; Y92.9 Unspecified place or not applicable; Z86.73 Personal history of transient ischemic attack (TIA), and cerebral infarction without residual deficits; Z93.3 Colostomy status; Z88.1 Allergy status to other antibiotic agents; Z85.038 Personal history of other malignant neoplasm of large intestine; Z91.010 Allergy to peanuts; Z82.49 Family history of ischemic heart disease and other diseases of the circulatory system; Z95.810 Presence of automatic (implantable) cardiac defibrillator; Z79.82 Long term (current) use of aspirin; I25.2 Old myocardial infarction
CPT/HCPCS: 36415; 36600; 70450; 71010; 74176; 80048; 80053; 80162; 80320; 80329; 81003; 81015; 82140; 82248; 82533; 82550; 82553; 82565; 82803; 83010; 83605; 83690; 83735; 83880; 84443; 84484; 84520; 85025; 85027; 85045; 85060; 85610; 85730; 86140; 86850; 86900; 86901; 86922; 87040; 87086; 87641; 93005; 93306; 94760; A9270-GY; C1751; G0480; J1162; J1644; J1940; J2270; J2405; J3475; P9040; P9047